=== PATIENT | female | born 1970 | race African-American/Black ===

== ENCOUNTER 2018-08-02 08:51 | Emergency (ER) | payer OTHER ==
--- NOTE | 2018-08-02 09:46 | RAD REPORT ---
EXAM DESCRIPTION: US - Extrem Venous W Compress Stephan - 08/02/2018 9:39 am CLINICAL HISTORY: PAIN Bilateral leg edema and swelling. COMPARISON: No comparisons TECHNIQUE: Real-time sonographic interrogation of the left and right lower extremity deep venous sys tems was performed. FINDINGS: Normal compressibility, flow augmentation, phasic flow and spontaneous flow is identified in both the left and right lower extremity deep venous systems. IMPRESSION: No sonographic evidence of left or right lower extremity deep venous thrombosis.
[2018-08-02 10:46] LABS: Absolute Lymphocytes (CBC) 2.9 K/uL (0.7-4.9); Absolute Monocytes 0.7 K/uL (0.1-1.3); Absolute Neutrophil 7.2 K/uL (1.8-8.0); Basophils % 1.2 % (0-1.3); Hematocrit 42.6 % (36.0-45.0); Lymphocytes % 25.7 % (15.3-44.8); MPV 8.9 fL (7.6-11.3); Monocytes % 6.1 % (3.3-12.3); RBC Red Blood Cell Count 4.88 M/uL (3.86-4.86)
[2018-08-02 10:52] LABS: Protime INR 1.44
[2018-08-02 10:59] LABS: Urine Blood 1+ (NEG); Urine Glucose 2+ (NEG); Urine Protein NEGATIVE (NEG)
[2018-08-02 11:11] LABS: ALT/SGPT 33 U/L (12-78); AST/SGOT 36 U/L (15-37); Albumin 3.2 g/dL (3.4-5.0); Alkaline Phosphatase 91 U/L (45-117); BUN Blood Urea Nitrogen 8 mg/dL (7-18); Bicarbonate 33 mmol/L (21-32); Bilirubin Direct 0.2 mg/dL (0-0.2); Bilirubin Total 0.6 mg/dL (0.2-1.0); Glucose Level 359 mg/dL (74-106); Magnesium 1.8 mg/dL (1.8-2.4); NT PRO-BNP 105 pg/mL (<125); Potassium 4.2 mmol/L (3.5-5.1); Protein, Total 7.4 g/dL (6.4-8.2); Sodium Level 137 mmol/L (136-145); Troponin (Emerg Dept Use Only) < 0.02 ng/mL (0.0-0.045)
--- NOTE | 2018-08-02 11:55 | RAD REPORT ---
EXAM DESCRIPTION: CT - Chest For Pe Angio - 08/02/2018 11:47 am CLINICAL HISTORY: Chest pain. Chest pain;Dyspnea COMPARISON: CTANGIO CHEST FOR PE dated 02/02/2013 TECHNIQUE: CT angiogram of the pulmonary arteries was performed with MIP. All CT scans are performed using dose optimization technique as appropriate and may include automated exposure control or mA/KV adjustment according to patient size. FINDINGS: Distal branches at the segmental and subsegmental emboli levels of the pulmonary arterial tree are suboptimally contrast opacified. These branches cannot be commented upon. Proximal pulmonary arterial tree shows no evidence of thromboembolism. No acute aortic finding demonstrated. The lungs are clear. No significant pericardial or pleural fluid. No concerning bony finding. IMPRESSION: Evaluation for pulmonary thromboembolism is limited to proximal aspects of the pulmonary arterial tree, which show no evidence of thromboembolism. No acute lung findings.
--- NOTE | 2018-08-02 11:57 | RAD REPORT ---
EXAM DESCRIPTION: Radha Single View08/02/2018 9:59 am CLINICAL HISTORY: Shortness of breath COMPARISON: 2012 FINDINGS: The lungs appear clear of acute infiltrate. The heart is mildly enlarged IMPRESSION: No acute abnormalities displayed
[2018-08-02] MEDS ORDERED: INSULIN -REGULAR HUMAN 50 UNIT/0.5 ML ML ONE (12:05)
[2018-08-02] MEDS ORDERED: NA CHLORIDE 0.9% 1,000 ML ONE (12:06)
[2018-08-02] MEDS ORDERED: WARFARIN SODIUM 5 MG TAB ONE (12:06)
--- NOTE | 2018-08-02 12:44 | EDPHYS ---
Physician Documentation [facility] Name: Radha Gregory Age: 48 yrs Sex: Female : 1970 Arrival Date: 08/02/2018 Time: 08:52 Bed 6 Private MD: ED Physician Germain Jensen HPI: 08/02 11:07 This 48 yrs old Black Female presents to ER via EMS with complaints of Shortness Of luzmaria Breath. 11:07 The patient has shortness of breath with light activity. Onset: The symptoms/episode luzmaria began/occurred just prior to arrival. Duration: The symptoms are intermittent. The patient's shortness of breath has no apparent modifying factors. Associated signs and symptoms: The patient has no apparent associated signs or symptoms. Severity of symptoms: At their worst the symptoms were mild in the emergency department the symptoms are unchanged. The patient has not experienced similar symptoms in the past. 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 - Social history:: Smoking status: Patient/guardian denies using tobacco. - Ebola Screening: : Patient negative for fever greater than or equal to 101.5 degrees Fahrenheit, and additional compatible Ebola Virus Disease symptoms Patient denies exposure to infectious person Patient denies travel to an Ebola-affected area in the 21 days before illness onset No symptoms or risks identified at this time. - Family history:: not pertinent. ROS: 11:07 Constitutional: Negative for fever, chills, and weight loss, Eyes: Negative for injury, luzmaria pain, redness, and discharge, ENT: Negative for injury, pain, and discharge, Neck: Negative for injury, pain, and swelling, Cardiovascular: Negative for chest pain, palpitations, and edema, Abdomen/GI: Negative for abdominal pain, nausea, vomiting, diarrhea, and constipation, Back: Negative for injury and pain, : Negative for injury, bleeding, discharge, and swelling, MS/Extremity: Negative for injury and deformity, Skin: Negative for injury, rash, and discoloration, Neuro: Negative for headache, weakness, numbness, tingling, and seizure, Psych: Negative for depression, anxiety, suicide ideation, homicidal ideation, and hallucinations, Allergy/Immunology: Negative for hives, rash, and allergies, Endocrine: Negative for neck swelling, polydipsia, polyuria, polyphagia, and marked weight changes, Hematologic/Lymphatic: Negative for swollen nodes, abnormal bleeding, and unusual bruising. 11:07 Respiratory: Positive for shortness of breath, on exertion. Exam: 11:07 Constitutional: This is a well developed, well nourished patient who is awake, alert, luzmaria and in no acute distress. Head/Face: Normocephalic, atraumatic. Eyes: Pupils equal round and reactive to light, extra-ocular motions intact. Lids and lashes normal. Conjunctiva and sclera are non-icteric and not injected. Cornea within normal limits. Periorbital areas with no swelling, redness, or edema. ENT: Nares patent. No nasal discharge, no septal abnormalities noted. Tympanic membranes are normal and external auditory canals are clear. Oropharynx with no redness, swelling, or masses, exudates, or evidence of obstruction, uvula midline. Mucous membranes moist. Neck: Trachea midline, no thyromegaly or masses palpated, and no cervical lymphadenopathy. Supple, full range of motion without nuchal rigidity, or vertebral point tenderness. No Meningismus. Chest/axilla: Normal chest wall appearance and motion. Nontender with no deformity. No lesions are appreciated. Cardiovascular: Regular rate and rhythm with a normal S1 and S2. No gallops, murmurs, or rubs. Normal PMI, no JVD. No pulse deficits. Respiratory: Lungs have equal breath sounds bilaterally, clear to auscultation and percussion. No rales, rhonchi or wheezes noted. No increased work of breathing, no retractions or nasal flaring. Abdomen/GI: Soft, non-tender, with normal bowel sounds. No distension or tympany. No guarding or rebound. No evidence of tenderness throughout. Back: No spinal tenderness. No costovertebral tenderness. Full range of motion. Skin: Warm, dry with normal turgor. Normal color with no rashes, no lesions, and no evidence of cellulitis. MS/ Extremity: Pulses equal, no cyanosis. Neurovascular intact. Full, normal range of motion. Neuro: Awake and alert, GCS 15, oriented to person, place, time, and situation. Cranial nerves II-XII grossly intact. Motor strength 5/5 in all extremities. Sensory grossly intact. Cerebellar exam normal. Normal gait. Psych: Awake, alert, with orientation to person, place and time. Behavior, mood, and affect are within normal limits. Vital Signs: 08:55 BP 158 / 90; Pulse 79; Resp 16; Temp 98.5; Pulse Ox 97% on R/A; sg MDM: 08:56 Patient medically screened. [facility] 11:07 Data reviewed: vital signs, nurses notes, lab test result(s), EKG, radiologic studies, [facility] CT scan, doppler, plain films. 08/02 08:58 Order name: Basic Metabolic Panel; Complete Time: 11:34 [facility] 08/02 08:58 Order name: CBC with Diff; Complete Time: 10:52 [facility] 08/02 08:58 Order name: LFT's; Complete Time: 11:34 [facility] 08/02 08:58 Order name: Magnesium; Complete Time: 11:34 [facility] 08/02 08:58 Order name: NT PRO-BNP; Complete Time: 11:34 [facility] 08/02 08:58 Order name: PT-INR; Complete Time: 11:34 [facility] 08/02 08:58 Order name: Troponin (emerg Dept Use Only); Complete Time: 11:34 [facility] 08/02 08:58 Order name: XRAY Chest (1 view); Complete Time: 12:43 [facility] 08/02 08:58 Order name: US Extremity Venous W Compression Stephan; Complete Time: 10:32 [facility] 08/02 08:58 Order name: CT Chest For PE Angio; Complete Time: 12:43 [facility] 08/02 10:56 Order name: Urine Dipstick--Ancillary (enter results); Complete Time: 11:34 08/02 08:58 Order name: EKG; Complete Time: 08:59 [facility] 08/02 08:58 Order name: Cardiac monitoring; Complete Time: 09:31 [facility] 08/02 08:58 Order name: EKG - Nurse/Tech; Complete Time: 09:57 [facility] 08/02 08:58 Order name: IV Saline Lock; Complete Time: 10:39 [facility] 08/02 08:58 Order name: Labs collected and sent; Complete Time: 10:39 [facility] 08/02 08:58 Order name: O2 Per Protocol; Complete Time: 09:31 [facility] 08/02 08:58 Order name: O2 Sat Monitoring; Complete Time: 09:31 [facility] 08/02 08:58 Order name: Urine Dipstick-Ancillary (obtain specimen); Complete Time: 10:38 [facility] Administered Medications: 12:00 Drug: NS 0.9% 1000 ml Route: IV; Rate: 125 ml/hr; Site: left antecubital; sg 12:12 Drug: Insulin Regular Human 10 units {Co-Signature: iw (Joann Arriaga RN).} Route: sg IVP; Site: left antecubital; 13:51 Follow up: Response: No adverse reaction sg Disposition: 08/02/18 12:43 Discharged to Home. Impression: Type 1 diabetes mellitus, Dyspnea. - Condition is Stable. - Discharge Instructions: Type 1 Diabetes Mellitus, Diagnosis, Adult, Hypertension, Obesity, Adult, Shortness of Breath, Wata-bu-Uktk, Hypertension, Mvrh-fs-Bavt, Obesity, Adult, Vbnt-bh-Stia, Type 1 Diabetes Mellitus, Self Care, Adult, Type 1 Diabetes Mellitus, Diagnosis, Adult, Vynl-nv-Cxun, Type 1 Diabetes Mellitus, Self Care, Adult, Wusm-rz-Pnaw. - Medication Reconciliation Form, Thank You Letter, Antibiotic Education, Prescription Opioid Use form. - Follow up: Private Physician; When: 2 - 3 days; Reason: Recheck today's complaints, Continuance of care, Re-evaluation by your physician. - Problem is new. - Symptoms have improved. Signatures: Dispatcher [employer] Nick Sotelo RN RN Germain Osorio MD MD cha Irene Williams RN iw Corrections: (The following items were deleted from the chart) 13:52 12:43 08/02/2018 12:43 Discharged to Home. Impression: Type 1 diabetes mellitus; sg Dyspnea. Condition is Stable. Forms are Medication Reconciliation Form, Thank You Letter, Antibiotic Education, Prescription Opioid Use. Follow up: Private Physician; When: 2 - 3 days; Reason: Recheck today's complaints, Continuance of care, Re-evaluation by your physician. Problem is new. Symptoms have improved. [facility]
--- NOTE | 2018-08-02 12:44 | ER ---
Nurse's Notes [facility] Name: Radha Gregory Age: 48 yrs Sex: Female : 1970 Arrival Date: 08/02/2018 Time: 08:52 Bed 6 Private MD: Diagnosis: Type 1 diabetes mellitus;Dyspnea Presentation: 08/02 08:52 Presenting complaint: Patient states: Shortness of breath and pain with respiration sg that began this morning while at the [facility], pt denies N/V/D/Fever, reports has had this pain in the past and it was related to PE, denies any leg or calf pain at this time. Transition of care: patient was not received from another setting of care. Onset of symptoms was August 02, 2018. Risk Assessment: Do you want to hurt yourself or someone else? Patient reports no desire to harm self or others. Initial Sepsis Screen: Does the patient meet any 2 criteria? No. Patient's initial sepsis screen is negative. Does the patient have a suspected source of infection? No. Patient's initial sepsis screen is negative. Care prior to arrival: Glucose check: 358 Oxygen administered. via nasal cannula. 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 - Social history:: Smoking status: Patient/guardian denies using tobacco. - Ebola Screening: : Patient negative for fever greater than or equal to 101.5 degrees Fahrenheit, and additional compatible Ebola Virus Disease symptoms Patient denies exposure to infectious person Patient denies travel to an Ebola-affected area in the 21 days before illness onset No symptoms or risks identified at this time. - Family history:: not pertinent. Assessment: 09:17 Reassessment: pt remains off the unit in radiology at this time. sg Vital Signs: 08:55 BP 158 / 90; Pulse 79; Resp 16; Temp 98.5; Pulse Ox 97% on R/A; sg ED Course: 08:52 Patient arrived in ED. sg 08:55 Triage completed. sg 08:56 Germain Jensen MD is Attending Physician. [facility] 08:59 Arm band placed on. sg 09:02 Nick Mcghee, RN is Primary Nurse. sg 09:27 US Extremity Venous W Compression Stephan In Process Unspecified. EDMS 09:31 EKG done, by fuel cell battery technician. reviewed by Germain Jensen MD. at1 09:49 X-ray completed. Patient tolerated procedure well. Patient moved to radiology via sh7 stretcher. Patient moved back from radiology. 09:51 XRAY Chest (1 view) In Process Unspecified. EDMS 10:02 Radiology exam delayed due to lab results not completed at this time. (BUN/Creatinine). 11:28 CT completed. Patient tolerated procedure well. Patient moved to CT via wheelchair. Patient moved back from CT. 12:08 CT Chest For PE Angio In Process Unspecified. EDMS 13:50 No provider procedures requiring assistance completed. IV discontinued, intact, sg bleeding controlled, No redness/swelling at site. Pressure dressing applied. Administered Medications: 12:00 Drug: NS 0.9% 1000 ml Route: IV; Rate: 125 ml/hr; Site: left antecubital; sg 12:12 Drug: Insulin Regular Human 10 units {Co-Signature: iw (Joann Arriaga RN).} Route: sg IVP; Site: left antecubital; 13:51 Follow up: Response: No adverse reaction sg Outcome: 12:43 Discharge ordered by . [facility] 13:50 Discharged to home via wheelchair, with family. sg 13:50 Discharge instructions given to patient, Instructed on discharge instructions, follow up and referral plans. medication usage, safety practices, Demonstrated understanding of instructions, follow-up care. 13:52 Patient left the ED. sg Signatures: Dispatcher [employer] EDMS Nick Mcghee, RN RN Germain Osorio MD MD cha Jones, Susan sj Gonzales, Amanda, certified pharmacy technician EKG Tat1 Carolyn Cotto 7 Joann agee
--- NOTE | 2018-08-03 11:37 | EKG ---
Test Date: 2018-08-02 Test Time: 08:58:32 Mannequin Wig Maker: IFTIKHAR MEASUREMENT RESULTS: Intervals: Rate: 76 GA: 160 QRSD: 90 QT: 418 QTc: 470 [place]: P: 52 GA: 160 QRS: 1 T: 23 INTERPRETIVE STATEMENTS: Normal sinus rhythm Cannot rule out Anterior infarct, age undetermined Abnormal ECG Compared to ECG 02/02/2013 02:06:24 Myocardial infarct finding now present Sinus tachycardia no longer present ST (T wave) deviation no longer present Electronically Signed On 08-03-18 07:38:40 CDT by Marcelino Cotto
== END 2018-08-02 13:52 | disposition home or self-care (01) ==
LOC: ER 08:51
DX: R06.00 Dyspnea, unspecified (principal); E10.9 Type 1 diabetes mellitus without complications; I10 Essential (primary) hypertension; Z79.4 Long term (current) use of insulin; Z79.01 Long term (current) use of anticoagulants; Z86.718 Personal history of other venous thrombosis and embolism
CPT/HCPCS: 93005; 85025; 80048; 36415; 83735; 85610; 80076; 81003; 84484; 83880; 71275; 71045; 93970; 96374; 99284; Q9967; J7030

== ENCOUNTER 2018-08-24 23:02 | Emergency (ER) | payer OTHER ==
--- OUTSIDE RECORDS SUMMARY | 2018-08-24 23:05 | XMS REPORT | Clinical Summary ---
:1970 Author Organization [facility] Address [address] [place] [address] Care Team Providers Name Role Phone Lilliana Mcconnell MD Primary Care Provider Allergies No Known Allergies Medications Medication Sig Dispensed Refills Start Date End Date Status liraglutide (VICTOZA) 0.6 Inject 1.8 mg 0 Active mg/0.1 mL (18 mg/3 mL) pen under the injector skin every morning. metoprolol succinate XL Take 200 mg 0 Active (TOPROL-XL) 200 mg 24 hr by mouth tablet daily. lisinopril Take 40 mg by 0 Active (PRINIVIL,ZESTRIL) 40 mg mouth daily. tablet dextroamphetamine-amphetami Take 60 mg by 0 Active ne (ADDERALL) 30 mg tablet mouth every morning. dextroamphetamine-amphetami Take 30 mg by 0 Active ne (ADDERALL) 30 mg tablet mouth daily. (noon) oxyCODone-acetaminophen Take 1 tablet 0 Active (PERCOCET) 10-325 mg per by mouth tablet every 6 (six) hours. warfarin (COUMADIN) 5 MG Take 10 mg by 0 Active tablet mouth daily. Take 1 tablet (5mg) by mouth daily for 30 days. atorvastatin (LIPITOR) 40 Take 40 mg by 0 Active MG tablet mouth daily. hydroCHLOROthiazide Take 25 mg by 0 Active (HYDRODIURIL) 25 MG tablet mouth daily. pantoprazole (PROTONIX) 40 Take 40 mg by 0 Active MG EC tablet mouth daily. metFORMIN XR Take 1,000 mg 0 Active (GLUCOPHAGE-XR) 500 mg 24 by mouth 2 hr tablet (two) times a day with meals. Active Problems Problem Noted Date Acute respiratory failure with hypoxia and hypercapnia 04/01/2017 Social History Tobacco Use Types Packs/Day Years Used Date Never Smoker Smokeless Tobacco: Never Used Alcohol Use Drinks/Week oz/Week Comments No Sex Assigned at Date Recorded Not on file Job Start Date Occupation Industry Not on file Not on file Not on file Travel History Travel Start Travel End No recent travel history available. Last Filed Vital Signs Not on file Plan of Treatment Health Maintenance Due Date Last Done Comments BREAST CANCER SCREENING 2018 COLONOSCOPY SCREENING 2018 SHINGLES VACCINES (#1) 2018 INFLUENZA VACCINE 10/05/2018 Implants Implanted Type Area Test Deck Supervisor Device Identifier Shelf Expiration Model / Date Serial / Lot Ivc Filter IVC Filter Ivc Filter IVC Filter Ivc Filter IVC Filter Results Not on fileafter 08/23/2017 Insurance Payer Benefit Plan / Subscriber ID Effective Dates Phone Address Type Group MEDICARE MEDICARE PART A xxxxxxxxxxx 2010-Present [place], [place] Medicare AND B Advance Directives Patient has advance care planning documents on file. For more information, please contact:Enoc Goodrich[address] [place] [address]
--- OUTSIDE RECORDS SUMMARY | 2018-08-24 23:06 | XMS REPORT ---
:1970 [facility] Address [address] [place] [address] Care Team Providers Name Role Phone UNKNOWN, REFFERING Primary Care Provider Unavailable CINDY NEUMANN Unavailable Unavailable Problems This patient has no known problems. Allergies, Adverse Reactions, Alerts This patient has no known allergies or adverse reactions. Medications This patient has no known medications. Encounters Start End Encounter Admission Attending Care Care Encounter Date/Time Date/Time Type Type Clinicians Facility Department ID 2017-01-10 2017-01-10 Emergency E [facility] [id number] 15:23:00 15:23:00 Results Test Description Test Time Test Comments Text Results Atomic Results Result Comments POC Glucose, Blood 2016-11-15 11:32:00 Test Item Value Reference Range Comments POC Glucose (test code=POCGLUC) 138 mg/dL 70-115 If you consider your patient critically ill, the Elvis Accu-Chek InformII metershould not be used for Glucose determinations.Draw a venous Glucose and send to the Main Lab for Analysis.
[2018-08-24] MEDS ORDERED: MORPHINE 4 MG/ML SYR ONE (23:47)
[2018-08-24] MEDS ORDERED: MORPHINE 2 MG/ML SYR ONE (23:47)
--- NOTE | 2018-08-24 23:53 | ER ---
Nurse's Notes [facility] Name: Radha Gregory Age: 48 yrs Sex: Female : 1970 Arrival Date: 08/24/2018 Time: 23:04 Bed 18 Private MD: Diagnosis: Pain in right foot Presentation: 08/24 23:05 Presenting complaint: Patient states: right foot pain at arch of foot X2 days. pt ak1 stated she uses a wheelchair at home. pt denies injury. pt assisted out of car into wheelchair. Transition of care: patient was not received from another setting of care. Onset of symptoms is unknown. Risk Assessment: Do you want to hurt yourself or someone else? Patient reports no desire to harm self or others. Initial Sepsis Screen: Does the patient meet any 2 criteria? No. Patient's initial sepsis screen is negative. Does the patient have a suspected source of infection? No. Patient's initial sepsis screen is negative. Care prior to arrival: None. 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 - Social history:: Smoking status: unknown. - Ebola Screening: : No symptoms or risks identified at this time. Screenin:26 Abuse screen: Denies threats or abuse. Denies injuries from another. Nutritional ak1 screening: No deficits noted. Tuberculosis screening: No symptoms or risk factors identified. Fall Risk Gait- Impaired (20 pts.). Assessment: 23:24 General: Appears in no apparent distress. obese, Behavior is cooperative, agitated. ak1 Pain: Complains of pain in lateral aspect of right foot and dorsum of right foot and lateral side of right heel and lateral side of right foot and right foot. Neuro: No deficits noted. Cardiovascular: No deficits noted. Respiratory: No deficits noted. GI: No signs and/or symptoms were reported involving the gastrointestinal system. : No signs and/or symptoms were reported regarding the genitourinary system. EENT: No signs and/or symptoms were reported regarding the EENT system. Derm: No signs and/or symptoms reported regarding the dermatologic system. Musculoskeletal: Capillary refill is brisk, in right toes. pt c/o swelling and pain to right foot X2 days. pt states she is unable to stand due to pain. pt stated she uses a wheelchair at home. 23:41 Reassessment: Patient appears in no apparent distress at this time. No changes from ak1 previously documented assessment. Patient and/or family updated on plan of care and expected duration. Pain level reassessed. pt informed of need for a ride prior to giving IM morphine. pt stated she had a ride coming. pt c/o wait time for Xrays to be read as well as wait time for medications to take effect. pt informed of wait for medications to absorb as well as Xrays to be uploaded and read. 23:44 Reassessment: verbal order for post op shoe for support. ak1 08/25 00:02 Reassessment: pt waiting on ride to arrive. . ak1 Vital Signs: 08/24 23:17 BP 173 / 106; Pulse 90; Resp 20; Temp 99.3(O); Pulse Ox 100% on R/A; Weight 197.77 kg ak1 (R); Height 5 ft. 4 in. (162.56 cm) (R); Pain 10/10; 08/25 00:01 BP 158 / 96; Pulse 89; Resp 18; Temp 98.9(O); Pulse Ox 99% on R/A; Pain 8/10; ak1 08/24 23:17 Body Mass Index 74.84 (197.77 kg, 162.56 cm) ak1 ED Course: 08/24 23:04 Patient arrived in ED. ak1 23:06 Triage completed. ak1 23:10 Arm band placed on Patient placed in an exam room, in a wheelchair, Patient notified of ak1 wait time. 23:10 Patient has correct armband on for positive identification. Bed in low position. Call ak1 light in reach. Side rails up X 1. Adult w/ patient. pt requested to stay in wheelchair. Pulse ox on. NIBP on. 23:12 Mirlande Phan FNP-C is PHCP. snw 23:12 Germain Jensen MD is Attending Physician. snw 23:27 No provider procedures requiring assistance completed. ak1 23:40 Renee Montemayor, RN is Primary Nurse. ak1 23:43 Patient did not have IV access during this emergency room visit. ak1 23:46 X-ray completed. Portable x-ray completed in exam room. Patient tolerated procedure kw well. 23:47 XRAY Foot RIGHT 3 View In Process Unspecified. EDMS Administered Medications: 23:41 Drug: morphine 5 mg Route: IM; Site: right deltoid; ak1 08/25 00:02 Follow up: Response: No adverse reaction; Pain is decreased ak1 00:34 CANCELLED (Duplicate Order): Phenergan 25 mg PO once snw 00:45 Drug: Phenergan 25 mg Route: PO; ak1 00:45 Follow up: Response: No adverse reaction ak1 Outcome: 08/24 23:41 Condition: stable ak1 23:52 Discharge ordered by . snw 08/25 00:01 Discharge instructions given to patient, Instructed on discharge instructions, follow ak1 up and referral plans. no drinking with medication, no driving heavy equipment, medication usage, post op shoe use and support. Demonstrated understanding of instructions, follow-up care, medications, Prescriptions given X 1. 00:45 Discharged to home via wheelchair, with family, pt assisted to family's car ak1 00:46 Patient left the ED. ak1 Signatures: Dispatcher [employer] EDMS Mirlande Phan FNP-C FNP-Price Sheila Gabriel kw Renee Montemayor, RN RN ak1
--- NOTE | 2018-08-24 23:53 | EDPHYS ---
Physician Documentation [facility] Name: Radha Gregory Age: 48 yrs Sex: Female : 1970 Arrival Date: 08/24/2018 Time: 23:04 Bed 18 Private MD: DARIELA Physician Germain Jensen HPI: 08/24 23:22 This 48 yrs old Black Female presents to ER via Wheelchair with complaints of Foot Pain.snw 23:22 The patient presents with decreased range of motion, pain, that is acute, swelling. The snw complaints affect the lateral aspect of right foot and dorsum of right foot. Context: The problem was sustained at home, resulted from an unknown cause, the patient can fully bear weight, the patient is not able to ambulate. Onset: The symptoms/episode began/occurred suddenly, and became persistent. Associated signs and symptoms: Pertinent positives: swelling. Severity of symptoms: At their worst the symptoms were moderate. It is unknown whether or not the patient has had similar symptoms in the past. SPECIALTY PERSON: 23:17 LMP N/A - Post-menopause ak1 Historical: - Allergies: 08/25 00:32 No Known Allergies; ak1 - Home Meds: 08/24 23:09 Coumadin Oral [Active]; Humira subcutaneous [Active]; Metoprolol Tartrate Oral ak1 [Active]; Vasotec Oral [Active]; Victoza 2-Jose M subcutaneous [Active]; - PMHx: 23:09 Diabetes - IDDM; DVT; Hypertension; PE; ak1 - Immunization history:: Adult Immunizations unknown. - Social history:: Smoking status: unknown. - Ebola Screening: : No symptoms or risks identified at this time. ROS: 23:21 Constitutional: Negative for fever, chills, and weight loss, Eyes: Negative for injury, snw pain, redness, and discharge, ENT: Negative for injury, pain, and discharge, Neck: Negative for injury, pain, and swelling, Cardiovascular: Negative for chest pain, palpitations, and edema, Respiratory: Negative for shortness of breath, cough, wheezing, and pleuritic chest pain, Abdomen/GI: Negative for abdominal pain, nausea, vomiting, diarrhea, and constipation, Back: Negative for injury and pain, : Negative for injury, bleeding, discharge, and swelling, Skin: Negative for injury, rash, and discoloration, Neuro: Negative for headache, weakness, numbness, tingling, and seizure, Psych: Negative for depression, anxiety, suicide ideation, homicidal ideation, and hallucinations. 23:21 MS/extremity: Positive for injury or acute deformity, decreased range of motion, pain, swelling, of the dorsum of right foot and lateral side of right foot. Exam: 23:20 Constitutional: This is a well developed, well nourished patient who is awake, alert, snw and in no acute distress. Head/Face: Normocephalic, atraumatic. Eyes: Pupils equal round and reactive to light, extra-ocular motions intact. Lids and lashes normal. Conjunctiva and sclera are non-icteric and not injected. Cornea within normal limits. Periorbital areas with no swelling, redness, or edema. ENT: Nares patent. No nasal discharge, no septal abnormalities noted. Tympanic membranes are normal and external auditory canals are clear. Oropharynx with no redness, swelling, or masses, exudates, or evidence of obstruction, uvula midline. Mucous membranes moist. Neck: Trachea midline, no thyromegaly or masses palpated, and no cervical lymphadenopathy. Supple, full range of motion without nuchal rigidity, or vertebral point tenderness. No Meningismus. Chest/axilla: Normal chest wall appearance and motion. Nontender with no deformity. No lesions are appreciated. Cardiovascular: Regular rate and rhythm with a normal S1 and S2. No gallops, murmurs, or rubs. Normal PMI, no JVD. No pulse deficits. Respiratory: Lungs have equal breath sounds bilaterally, clear to auscultation and percussion. No rales, rhonchi or wheezes noted. No increased work of breathing, no retractions or nasal flaring. Abdomen/GI: Soft, non-tender, with normal bowel sounds. No distension or tympany. No guarding or rebound. No evidence of tenderness throughout. Back: No spinal tenderness. No costovertebral tenderness. Full range of motion. Skin: Warm, dry with normal turgor. Normal color with no rashes, no lesions, and no evidence of cellulitis. Neuro: Awake and alert, GCS 15, oriented to person, place, time, and situation. Cranial nerves II-XII grossly intact. Motor strength 5/5 in all extremities. Sensory grossly intact. Cerebellar exam normal. Normal gait. Psych: Awake, alert, with orientation to person, place and time. Behavior, mood, and affect are within normal limits. 23:20 Musculoskeletal/extremity: Extremities: grossly normal except: noted in the lateral side of right foot, lateral side of right heel and dorsum of right foot: decreased ROM, ROM: limited passive range of motion due to pain, in the right foot, Pulses: are normal with no appreciated deficits, Sensation intact. Compartment Syndrome exam of affected extremity: is normal. Vital Signs: 23:17 BP 173 / 106; Pulse 90; Resp 20; Temp 99.3(O); Pulse Ox 100% on R/A; Weight 197.77 kg ak1 (R); Height 5 ft. 4 in. (162.56 cm) (R); Pain 10/10; 08/25 00:01 BP 158 / 96; Pulse 89; Resp 18; Temp 98.9(O); Pulse Ox 99% on R/A; Pain 8/10; ak1 08/24 23:17 Body Mass Index 74.84 (197.77 kg, 162.56 cm) ak1 MDM: 08/24 23:13 Patient medically screened. snw 23:53 Data reviewed: vital signs, nurses notes. Data interpreted: Pulse oximetry: on room air snw is 100 %. Interpretation: normal. Counseling: I had a detailed discussion with the patient and/or guardian regarding: the historical points, exam findings, and any diagnostic results supporting the discharge/admit diagnosis, radiology results, to return to the emergency department if symptoms worsen or persist or if there are any questions or concerns that arise at home. Special discussion: Based on the history and exam findings, there is no indication for further emergent testing or inpatient evaluation. I discussed with the patient/guardian the need to see the motor tune up specialist for further evaluation of the symptoms. I discussed with the patient/guardian the need to see the primary care provider for further evaluation of the symptoms. 23:54 Special discussion: I have referred the patient to see his PCP for further evaluation snw of high blood pressure. 08/24 23:10 Order name: XRAY Foot RIGHT 3 View ak1 Administered Medications: 23:41 Drug: morphine 5 mg Route: IM; Site: right deltoid; ak1 08/25 00:02 Follow up: Response: No adverse reaction; Pain is decreased ak1 00:34 CANCELLED (Duplicate Order): Phenergan 25 mg PO once snw 00:45 Drug: Phenergan 25 mg Route: PO; ak1 00:45 Follow up: Response: No adverse reaction ak1 Disposition: 14:01 Co-signature as Attending Physician, Germain Jensen MD I agree with the assessment and luzmaria plan of care. Disposition: 08/24/18 23:52 Discharged to Home. Impression: Pain in right foot. - Condition is Stable. - Discharge Instructions: Foot Contusion, Heel Spur, Musculoskeletal Pain, Cryotherapy, Heat Therapy, How to Use a Cast Shoe, Foot Pain. - Prescriptions for Ultram 50 mg Oral Tablet - take 1 tablet by ORAL route every 6 hours As needed; 15 tablet. - Medication Reconciliation Form, Thank You Letter, Antibiotic Education, Prescription Opioid Use form. - Follow up: Private Physician; When: 2 - 3 days; Reason: Recheck today's complaints, Continuance of care, Re-evaluation by your physician. Follow up: Emergency Department; When: As needed; Reason: Worsening of condition. Signatures: Dispatcher [employer] [facility] Germain Jensen MD MD cha Therrien, Shelly, SUPERVISOR CARDING-C SUPERVISOR CARDING-Csnw Renee Montemayor, RN RN ak1 Corrections: (The following items were deleted from the chart) 00:34 00:33 Phenergan 25 mg PO once ordered. snw snw 00:46 08/24 23:52 08/24/2018 23:52 Discharged to Home. Impression: Pain in right foot. ak1 Condition is Stable. Forms are Medication Reconciliation Form, Thank You Letter, Antibiotic Education, Prescription Opioid Use. Follow up: Private Physician; When: 2 - 3 days; Reason: Recheck today's complaints, Continuance of care, Re-evaluation by your physician. Follow up: Emergency Department; When: As needed; Reason: Worsening of condition. snw
[2018-08-25] MEDS ORDERED: PROMETHAZINE 25 MG TABLET ONE (00:51)
--- NOTE | 2018-08-25 07:55 | RAD REPORT ---
EXAM DESCRIPTION: RAD - Foot Right 3 View - 08/24/2018 11:47 pm CLINICAL HISTORY: PAIN COMPARISON: <Comparisons> FINDINGS: Prominent soft tissue swelling is seen about the foot. Moderate degenerative changes invol ve the first MTP joint. Calcaneal spurs are seen, large, along the plantar aspect. No acute fracture or dislocation evident.
== END 2018-08-25 00:46 | disposition home or self-care (01) ==
LOC: ER 23:02
DX: M79.671 Pain in right foot (principal); E11.9 Type 2 diabetes mellitus without complications; I10 Essential (primary) hypertension; Z79.01 Long term (current) use of anticoagulants; Z79.84 Long term (current) use of oral hypoglycemic drugs; Z79.899 Other long term (current) drug therapy; Z86.718 Personal history of other venous thrombosis and embolism; Z86.711 Personal history of pulmonary embolism
CPT/HCPCS: 73630; 96372; 99284; J2270

== ENCOUNTER 2020-03-09 17:36 | Inpatient (IN) | payer OTHER ==
--- OUTSIDE RECORDS SUMMARY | 2020-03-09 17:38 | XMS REPORT | Clinical Summary ---
:1970 Author Organization [facility] Address [address] [place] [address] Care Team Providers Name Role Phone Rl Mcconnell MD Primary Care Provider Allergies No Known Active Allergies Medications Medication Sig Dispensed Refills Start Date End Date Status liraglutide Inject 1.8 mg under 0 Active (VICTOZA) 0.6 mg/0.1 the skin every mL (18 mg/3 mL) pen morning. injector metoprolol succinate Take 200 mg by mouth 0 Active XL (TOPROL-XL) 200 daily. mg 24 hr tablet lisinopril Take 40 mg by mouth 0 Active (PRINIVIL,ZESTRIL) daily. 40 mg tablet atorvastatin Take 40 mg by mouth 0 Active (LIPITOR) 40 MG daily. tablet pantoprazole Take 40 mg by mouth 0 Active (PROTONIX) 40 MG EC daily. tablet allopurinol Take 300 mg by mouth 0 Active (ZYLOPRIM) 300 MG daily. tablet furosemide (LASIX) Take 40 mg by mouth 0 Active 40 mg tablet 2 (two) times a day. ipratropium Take 500 mcg by 0 Ac tive (ATROVENT) 0.02 % nebulization 4 nebulizer solution (four) times a day as needed for wheezing or shortness of breath. insulin lispro Inject 40 Units 0 Active protamin-lispro under the skin 2 (HumaLOG 75-25) 100 (two) times a day unit/mL (75-25) before meals. suspension Active Problems Problem Noted Date Prothrombin gene mutation 10/25/2018 Other pulmonary embolism without acute cor pulmonale 0 10/24/2018 Acute respiratory failure with hypoxia and hypercapnia 04/01/2017 Encounters Date Type Specialty Care Team Description 08/17/2019 Travel 08/16/2019 Hospital Encounter Sleep Medicine Stacy Benedict sleep Jamar Arguello MD apnea (adult) (pediatric) 08/06/2019 Travel 06/13/2019 Transcribe Orders Sleep Medicine Jak, Obstruct marcella sleep Jamar Arguello MD apnea (adult) (pediatric) (Pr imary Dx) 06/13/2019 Travel 06/12/2019 Transcribe Orders Access Jak, Obstructiv e sleep Jamar Arguello MD apnea (adult) (pediatric) (Pr imary Dx) after 03/09/2019 Surgical History Surgery Date Site/Laterality Comments IVC FILTER PLACEMENT Medical History Medical History Date Comments Asthma Hypertension Diabetes mellitus (HCC) High cholesterol Deep vein thrombosis (HCC) Pulmonary embolism (HCC) Family History Medical History Relation Name Comments Clotting disorder Father Relation Name Status Comments Father Social History Tobacco Use Types Packs/Day Years Used Date Never Smoker Smokeless Tobacco: Never Used Alcohol Use Drinks/Week oz/Week Comments No Sex Assigned at Date Recorded Not on file Last Filed Vital Signs Not on file Plan of Treatment Health Maintenance Due Date Last Done Comments DIABETES: RETINAL EYE EXAM 1978 DIABETIC FOOT EXAM 1978 URINE MICROALBUMIN 1978 COVID-19 VACCINE (#1) 1984 CERVICAL CANCER SCREENING 1989 BREAST CANCER SCREENING 2018 COLONOSCOPY SCREENING 2018 SHINGLES VACCINES (#1) 2018 INFLUENZA VACCINE 10/06/2019 02/20/2013, 04/15/2011 Implants Implanted Type Area Vacuum Conditioner Operator Device Identifier Shelf Exp iration Model / Date Serial / L ot Ivc Filter IVC Filter Ivc Filter IVC Filter Ivc Filter IVC Filter Results Not on fileafter 03/09/2019 Insurance Payer Benefit Plan / Subscriber ID Effective Dates Phone Addre ss Type Group HUMANA MEDICARE HUMANA HMO GOLD [id number] 2019-Present HMO PLUS MEDICARE Loan (Home) [place] [address] Advance Directives For more information, please contact: [phone] Type Date Recorded 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
--- OUTSIDE RECORDS SUMMARY | 2020-03-09 17:39 | XMS REPORT | Continuity of Care Document ---
:1970 Author Organization [facility] t Address [address] [place] [address] Care Team Providers Name Role Phone UNKNOWN Primary Care Physician Unavailable Jos Benedict MD Attending Clinician NEL Attending Clinician Unavailable NEL Admitting Clinician Unavailable Payers Payer Name Policy Type Policy Effective Date Expiration Date Sour ce Number HUMANA [id number] 2019 [place] MEDICAREHUMANA HMO 00:00:00 Method ist GOLD PLUS [id number] Problems Condition Condition Condition Status Onset Resolution Last Treating Co mments Source Name Details Category Date Date Treatment Clinician Date Prothrombi Prothrombi Disease Active H juan n gene n gene 8-21 Methodi mutation mutation 00:00: st 00 Other Other Disease Active [place] pulmonary pulmonary 8-20 Meth oneyda embolism embolism 00:00: st without without 00 acute cor acute cor pulmonale pulmonale Obstructiv Obstructiv Disease Active Overview : MD ray sleep e sleep 2-16 Overview: Raymond suarez apnea apnea 00:00: on BIPAP n syndrome syndrome 00 Prothrombi Prothrombi Disease Active M D n gene n gene 2-16 Anderso mutation mutation 00:00: n 00 Morbid Morbid Disease Active obesity obesity 2-16 Anderso 00:00: n 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 current 2-16 Anderso use of use of 00:00: n anticoagul anticoagul 00 ant ant Acute Acute Disease Active [place] respirator respirator -26 Me thodi y failure y failure 00:00: st with with 00 hypoxia hypoxia and and hypercapni hypercapni a a Personal Personal Disease Active 2015-03 history of history of 2-13 An derso pulmonary pulmonary 00:00: n embolism embolism 00 Hyperlipid Hyperlipid Disease Active M D emia emia 09-25 Anderso 00:00: n 00 Esophageal Esophageal Disease Active M D reflux reflux 4- Anderso 00:00: n 00 Type 2 Type 2 Disease Active diabetes diabetes 09-01 Christopher o mellitus mellitus 00:00: n 00 History of History of Disease Active M D recurrent recurrent 07-01 Tao rso deep vein deep vein 00:00: n thrombosis thrombosis 00 Benign Benign Disease Active essential essential 07-01 Tao rso hypertensi hypertensi 00:00: n on on 00 Polycystic Polycystic Disease Active M D ovarian ovarian 03-07 Anderso syndrome syndrome 00:00: n 00 Gout Gout Disease Active 03-07 Anderso 00:00: n 00 Allergies, Adverse Reactions, Alerts This patient has no known allergies or adverse reactions. Family History Family Member Diagnosis Comments Start Date Stop Date Source Natural father Clotting disorder [facility] Social History Social Habit Start Date Stop Date Quantity Comments Source Sex Assigned At MD White on Tobacco use and 2018-04-22 2018-04-22 Never used MD White on exposure 00:00:00 00:00:00 Alcohol intake 2018-04-22 2018-04-22 Current MD Keyana maier 00:00:00 00:00:00 non-drinker of alcohol (finding) Smoking Status Start Date Stop Date Source Never smoker MD Jensen Medications Ordered Filled Start Stop Current Ordering Indication Dosage Frequency Signature Comments Components Source Medication Medication Date Date Medication? Clinician (SIG) Name Name liraglutide Yes 1.8mg QD Inject 1.8 [facility] (VICTOZA) 8-24 mg under Method i 0.6 mg/0.1 15:14: the skin st mL (18 mg/3 11 every mL) pen morning. injector metoprolol 2019-0 Yes 200mg QD Take 200 [place] succinate 8-24 mg by Methodi XL 15:14: mouth st (TOPROL-XL) 11 daily. 200 mg 24 hr tablet lisinopril 2019-0 Yes 40mg QD Take 40 mg [place] (PRINIVIL,Z 8-24 by mouth Meth oneyda ESTRIL) 40 15:14: daily. st mg tablet 11 atorvastati 2019-0 Yes 40mg QD Take 40 mg [facility] n (LIPITOR) 8-24 by mouth Meth oneyda 40 MG 15:14: daily. st tablet 11 pantoprazol 2019-0 Yes 40mg QD Take 40 mg [facility] e 8-24 by mouth Methodi (PROTONIX) 15:14: daily. st 40 MG EC 11 tablet allopurinol 2019-0 Yes 300mg QD Take 300 [place] (ZYLOPRIM) 8-24 mg by Methodi 300 MG 15:14: mouth st tablet 11 daily. furosemide 2019-0 Yes 40mg Q.5D Take 40 mg [place] (LASIX) 40 8-24 by mouth 2 Met hodi mg tablet 15:14: (two) st 11 times a day. ipratropium 2018-0 Yes 500ug Q.25D Take 500 [facility] (ATROVENT) 8-24 mcg by Methodi 0.02 % 15:14: nebulizati st nebulizer 11 on 4 solution (four) times a day as needed for wheezing or shortness of breath. insulin 2018-0 Yes 40U Q.5D Inject 40 [place] lispro 8-24 Units Methodi protamin-li 15:14: under the s t spro 11 skin 2 (HumaLOG (two) 75-25) 100 times a unit/mL day before (75-25) meals. suspension dextroamphe 2019-0 Yes 30mg Take 30 mg MD tamine-amph 2-14 by mouth Tao rso etamine 30 17:37: daily. n mg tab 53 glycopyrrol 2019-0 Yes daily. ate-formote 2-14 Anderso rol 9-4.8 17:37: n mcg HFAA 53 clotrimazol 2019-0 Yes twice MD e 2-12 daily. Anderso (LOTRIMIN-A 00:00: n F) 1% cream 00 insulin 2019-0 Yes 24U Inject 24 MD glargine 1-17 Units Anderso U-300 conc 00:00: under the n 300 unit/mL 00 skin (1.5 mL) daily. insulin pen warfarin Yes 15mg Take 15 mg MD (COUMADIN) 1-16 by mouth Raymond so 5 mg tablet 00:00: daily. n 00 atorvastati Yes 40mg Take 40 mg MD n (LIPITOR) 1-08 by mouth Tao rso 40 mg 00:00: daily. n tablet 00 hydroCHLORO Yes 25mg 25 mg MD thiazide -08 daily. Anderso (HYDRODIURI 00:00: n L) 25 mg 00 tablet lisinopril Yes 40mg Take 40 mg M D (PRINIVIL,Z -08 by mouth Tao rso ESTRIL) 40 00:00: daily. n mg tablet 00 metFORMIN Yes 1000mg 1,000 mg MD (GLUCOPHAGE -08 twice Anderso -XR) 500 mg 00:00: daily. n 24 hr 00 tablet metoprolol 2017-03 Yes daily. MD succinate 0-30 Anderso (TOPROL XL) 00:00: n 200 mg 24 00 hr tablet liraglutide Yes daily. MD (VICTOZA) 8-21 Anderso 0.6 mg/0.1 00:00: n mL pnij 00 injection modafinil 2017- Yes daily. MD (PROVIGIL) 6-20 Anderso 200 mg 00:00: n tablet 00 furosemide Yes 40mg 40 mg MD (LASIX) 40 5-23 twice Anderso mg tablet 00:00: daily. n 00 pantoprazol Yes twice MD e 1-10 daily. Anderso (PROTONIX) 00:00: n 40 mg EC 00 tablet clotrimazol 2015-03 Yes twice MD e-betametha 2-14 daily. Christopher o sone 00:00: n (LOTRISONE) 00 1%-0.05% cream azelastine Yes 137{spr 137 sprays MD (ASTELIN) 7-30 ay} daily. Anderso 137 00:00: n mcg/spray 00 nasal spray ciclopirox 2015-1 Yes Apply MD (PENLAC) 8% 2-02 topically And erso solution 00:00: to n 00 affected area(s) at bedtime. Metoprolol Metoprolol Yes Prasad [address] [facility] Succinate Succinate [facility] Lisinopril Lisinopril Yes Prasad [address] [facility] Amphetamine Amphetamine Yes Prasad (Schedule [facility] -Dextroamph -Dextroamph Marie II Drug) [facility] - etamine etamine TAKE HALF Danny lisa OF A l TABLET (15 Outpati MG) BY ent MOUTH ONE Clinics TIME NovoLog NovoLog Yes Prasad [address] [facility] Azelastine Azelastine Yes Prasad [address] [facility] HCl HCl Marie each [facility] nostril [facility] Golytely Golytely Yes Prasad as [facility] directed [facility] Nystatin Nystatin Yes Prasad [address] [facility] Marie applicatio [facility] Triamcinolo Triamcinolo Yes Prasad [address] [facility] ne ne Mraie applicatio [facility] - Acetonide Acetonide n [facility] Tramadol Tramadol Yes Prasad (Schedule [facility] HCl HCl Marie IV Drug) [facility] - TAKE 1 Memoria TABLET BY l MOUTH Outpati EVERY 6 ent HOURS Clinics NEEDED FOR PAIN Montelukast Montelukast Yes Prasad [address] [facility] Sodium Sodium Marie [facility] Indomethaci Indomethaci Yes Prasad [address] [facility] n n Marie with food [facility] - or milk [facility] Clotrimazol Clotrimazol Yes Prasad [address] [facility] e-Betametha e-Betametha Marie applicatio [facility] - sone sone n [facility] Contour Contour Yes Prasad not [facility] Meter Meter Marie defined [facility] Contour Contour Yes Prasad as [facility] Next Test Next Test Marie directed L [facility] MetFORMIN MetFORMIN Yes Prasad [address] [facility] [address] HCl ER HCl ER Marie with [facility] - evening [facility] meal [facility] Furosemide Furosemide Yes Prasad [address] [facility] Ciclopirox Ciclopirox Yes Prasad [address] [facility] Marie applicatio [facility] Clotrimazol Clotrimazol Yes Prasad [address] [facility] e e Marie applicatio [facility] Victoza Victoza Yes Prasad 1.[address] [facility] Mupirocin Mupirocin Yes Prasad [address] Marie applicatio [facility] Glycopyrrol Glycopyrrol Yes Prasad [address] ate-Formote ate-Formote Marie L ukes - rol rol [facility]pat[facility] ent Clin[facility] Allopurinol Allopurinol Yes Prasad [address] [facility] Nifedipine Nifedipine Yes Prasad [address] [facility] ER ER Marie [facility] Levocetiriz Levocetiriz Yes Prasad [address] [facility] ine ine Marie in the [facility] - Dihydrochlo Dihydrochlo evening Memoria ride ride l Outpati ent Clinics Pen [place] Pen [place] Yes Prasad as [facility] 5/16" 5/16" Marie directed [facility] Fluticasone Fluticasone Yes Prasad [address] [facility] Propionate Propionate Marie each Kacy es - nostril [facility] l Outpati ent Clinics Atorvastati Atorvastati Yes Prasad [address] [facility] n Calcium n Calcium Marie kes - [facility] Coumadin Coumadin Yes Prasad [address] [facility] Pantoprazol Pantoprazol Yes Prasad [address] e Sodium e Sodium Marie kes [facility] Procedures This patient has no known procedures. Plan of Care Planned Activity Planned Date Details Comments Source Future Scheduled 2019-10-06 INFLUENZA VACCINE [place] [facility] 00:00:00 [code = INFLUENZA VACCINE] Future Scheduled 2018 BREAST CANCER [facility] Test 00:00:00 SCREENING [code = BREAST CANCER SCREENING] Future Scheduled 2018 COLONOSCOPY SCREENING [facility] sal[facility] Test 00:00:00 [code = COLONOSCOPY SCREENING] Future Scheduled 2018 SHINGLES VACCINES (#1) [place] [facility] 00:00:00 [code = SHINGLES VACCINES (#1)] Future Scheduled 1989 Screening for [facility] Test 00:00:00 malignant neoplasm of cervix (procedure) [code = 616025122] Future Scheduled 1984 COVID-19 VACCINE (#1) [place] [facility] 00:00:00 [code = COVID-19 VACCINE (#1)] Future Scheduled 1978 DIABETES: RETINAL EYE [place] [facility] 00:00:00 EXAM [code = DIABETES: RETINAL EYE EXAM] Future Scheduled 1978 DIABETIC FOOT EXAM [place] [facility] 00:00:00 [code = DIABETIC FOOT EXAM] Future Scheduled 1978 URINE MICROALBUMIN [place] [facility] 00:00:00 [code = URINE MICROALBUMIN] Encounters Start End Encounter Admission Attending Care Care Encounter Source Date/Time Date/Time Type Type Clinicians Facility Department ID 2020-03-06 2020-03-06 Out[facility] [id number] 2020-02-26 2020-02-26 [facility] [id number] [facility] 2020-02-19 2020-02-19 Outpatient [facility] [id number] [facility] 2019-12-24 2019-12-24 Out[facility] [id number] [facility] 2019-10-17 2019-10-17 [facility] [id number] [address] 16:47:00 16:47:00 t [employer] [facility] Medicine Outpati ent Clinics 2019-10-08 2019-10-08 [facility] [id number] 14:30:00 14:30:00 t [facility] Clin[facility] 2019-09-19 2019-09-19 Outpatient Payton Monge [id number] 16:05:00 16:05:00 [employer] [place] [facility] 2019-09-19 2019-09-19 Outpatient Payton Monge [id number] [facility] 15:15[facility] 15:15:00 [facility] 2019-08-16 2019-08-16 Outpatient MELISSA, [facility] [id number] [place] 00:00:00 00:00:00 DE[place] [address] 2017-01-10 2017-01-10 Emergency E [facility] [id number] [facility] 15:23:00 15:23:00 Results Test Description Test Time Test Comments Results Result Comments Source POC Glucose, Blood 2016-11-15 11:32:00 Test Item Value Reference Range Interpretation Comme nts POC Glucose (test code = 138 mg/dL 70-115 H If you consider your patient POCGLUC) critically ill, the Elvis Accu-Chek InformII meters hould not be used for Glucose determi nations.Draw a venous Glucose and sen d to the Main Lab for Analysis.
--- OUTSIDE RECORDS SUMMARY | 2020-03-09 17:39 | XMS REPORT | Summary of Care ---
:1970 Author Organization [facility] [employer] [facility] Address [address] [place] [id number] Care Team Providers Name Role Phone Visit, Nurse Unavailable Unavailable Destiny Soria Primary Care Provider Reason for Visit Reason Comments Results Encounter Details Date Type Department Care Team Description 12/11/2019 Telephone [facility] Cardiology- Catie Vargas MD Results [place] [address] [facility] [address] [facility], [address] [address] [place] [address] [phone] Allergies No Known Allergiesdocumented as of this encounter (statuses as of 12/11/2019) Medications Medication Sig Dispensed Refills Start Date End Date Status ciclopirox (PENLAC) 8 Apply to area(s) 6.6 mL 11 02/05/2015 Active % solution at bedtime. Apply to Nails. clotrimazole-betametha Apply to area(s) 45 g 2 6 Active sone (LOTRISONE) cream 2 (two) times daily. PANTOPRAZOLE 40 mg EC TAKE 1 TABLET BY 60 tablet 0 03/16/2017 Active tablet MOUTH TWICE DAILY 30 MINUTES BEFORE BREAKFAST AND DINNER glycopyrrolate-formote Inhale. 0 Active rol (BEVESPI AEROSPHERE) 9-4.8 mcg HFAA clotrimazole 1 % Apply to area(s) 1 Tube 0 06/22/2018 Active topical 2 (two) times creamIndications: daily. Cutaneous candidiasis nystatin 100,000 Apply to area(s) 90 g 11 07/04/2018 Active unit/gram daily. powderIndications: Intertrigo peg-electrolyte soln Take as directed 4000 mL 0 07/17/2018 Active [id number] -5.86 before gram colonoscopy solutionIndications: Special screening for malignant neoplasms, colon indomethacin 50 mg Take 50 mg by 0 Active capsule mouth 2 (two) times daily with meals. clotrimazole-betametha Apply to area(s) 45 g 2 9 Active sone creamIndications: 2 (two) times Chronic gout due to daily. 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 Use in to pollen, unspecified each nostril as seasonality directed ipratropium 0.02 % Inhale 500 mcg. 0 Active nebulizer solution fluticasone propionate Use 1 [place] in 1 Bottle 5 05/01/2019 Active 50 mcg/actuation nasal each nostril sprayIndications: daily. Allergic rhinitis due to pollen, unspecified seasonality levocetirizine 5 mg Take 1 tablet by 90 tablet 1 05/16/2019 Active tabletIndications: mouth every Environmental evening. allergies metformin ER 500 mg 24 Take 2 tablets by 360 tablet 1 05/25/19 20 Active hr tabletIndications: mouth 2 (two) Uncontrolled type 2 times daily with diabetes mellitus with meals. complication, with long-term current use of insulin furosemide (LASIX) 40 Take 1 tablet by 180 tablet 1 05/25/2019 Active mg tabletIndications: mouth every Deep vein thrombosis morning and (DVT) of proximal vein evening. of right lower extremity, unspecified chronicity, Chronic anticoagulation, NYE (dyspnea on exertion), Thrombotic disorder, Essential hypertension, benign, Uncontrolled hypertension metoprolol succinate Take 1 tablet by 90 tablet 1 05/25/2019 Active XL 200 mg 24 hr mouth daily. tabletIndications: Essential hypertension, benign allopurinoL 300 mg Take 1 tablet by 90 tablet 3 05/23/2019 Active tabletIndications: mouth daily. Chronic gout due to other secondary cause involving toe of right foot without tophus, Tendonitis of ankle or foot, Pitting edema, Comprehensive diabetic foot examination, type 2 DM, encounter for, Diabetes mellitus type 2, insulin dependent atorvastatin 40 mg TAKE 1 TABLET BY 90 tablet 3 05/23/2019 Active tabletIndications: MOUTH EVERY NIGHT Dyslipidemia AT BEDTIME. montelukast 10 mg Take 1 tablet by 90 tablet 3 05/23/2019 Active tabletIndications: mouth daily. Allergic rhinitis due to pollen, unspecified seasonality triamcinolone Apply BID to red 454 g 1 06/05/2019 Active acetonide 0.1 % rash on both ointmentIndications: lower Venous insufficiency extremities; do of both lower not apply to extremities normal, smooth skin mupirocin 2 % Apply to area(s) 22 g 5 06/06/2019 Active ointmentIndications: 3 (three) times Furuncle daily. Insulin Wallace, Use as directed 300 Each 0 07/05/2019 Active Disposable, (BD to administer INSULIN PEN NEEDLE UF) insulin under 31 gauge x 5/16" Ndle skin TID DX: E11.65 blood sugar diagnostic Use as directed 200 Strip 0 10/04/2019 Active (ACCU-CHEK GUIDE) to check blood strip sugars BID DX: E11.8 Blood-Glucose Meter Use as directed 1 Each 0 10/04/2019 Active (ACCU-CHEK GUIDE to check blood GLUCOSE METER) Misc sugars BID DX: E11.8 Lancets (ACCU-CHEK Use as directed 200 Each 0 10/04/2019 Active FASTCLIX LANCET DRUM) to check blood Misc sugars BID DX: E11.8 LISINOPRIL 40 mg TAKE 1 TABLET 90 tablet 1 11/02/2019 Active tabletIndications: EVERY MORNING Essential hypertension, benign warfarin (COUMADIN) 5 Take 3 tablets by 90 tablet 1 11/09/2019 Active mg tabletIndications: mouth every Chronic evening. Patient anticoagulation takes Coumadin 10 and 15 mg at alternate days. semaglutide (OZEMPIC) inject 0.5 mg 4 Syringe 3 11/16/2019 Active 0.25 mg or 0.5 mg(2 under the skin mg/1.5 mL) weekly. PnIjIndications: Uncontrolled type 2 diabetes mellitus with complication, with long-term current use of insulin Insulin Asp inject 60 Units 120 mL 3 11/16/2019 A ctive Prt-Insulin Aspart under the skin 2 (NOVOLOG MIX 70-30) (two) times daily 100 unit/mL (70-30) before breakfast injectionIndications: and dinner. Dx: Uncontrolled type 2 E11.8 diabetes mellitus with complication, with long-term current use of insulin escitalopram oxalate Take 10 mg by 0 11/15/2019 Active 10 mg tablet mouth daily. NIFEdipine XL Take 60 mg by 0 Ac tive (PROCARDIA XL) 60 mg mouth daily. 24 hr tablet documented as of this encounter (statuses as of 12/11/2019) Active Problems Problem Noted Date Unable to walk 06/11/2019 Bilateral hip pain 06/11/2019 Primary osteoarthritis of both knees 06/11/2019 Declining functional status 06/11/2019 Impaired mobility and ADLs 06/11/2019 Pulmonary embolism 11/22/2018 Supratherapeutic INR 09/01/2018 long-term current use of anticoagulant 04/22/2018 Acute respiratory failure with hypoxia and hypercapnia 04/01/2017 Hypoxia 01/05/2017 Hypercarbia 09/28/2016 Abnormal uterine bleeding 09/17/2016 Overview: Added automatically from request for nirali ced [id number] Dermoid cyst of ovary 05/17/2016 Abnormal uterine bleeding (AUB) 05/14/2016 Pulmonary embolus [I26.99] 02/17/2016 Personal history of pulmonary embolism 02/17/2016 Abdominal pain in female 02/06/2016 Depression 09/11/2015 HLD (hyperlipidemia) 09/25/2014 Metabolic syndrome X 03/19/2014 BMI 70 and over, adult 06/14/2012 Esophageal reflux 06/14/2012 Vitamin D deficiency 09/29/2011 Diabetes type 2, uncontrolled 09/02/2011 Hirsutism 09/02/2011 Essential hypertension, benign 2011 DVT (deep venous thrombosis) 2011 ADHD (attention deficit hyperactivity disorder) 2011 History of recurrent deep vein thrombosis 2011 Anticoagulation monitoring, INR range 2.5-3.5 10/02/19 11 Osteoarthrosis, hip 10/01/2010 Gout 03/07/1999 Polycystic ovarian syndrome 03/07/1999 Severe obesity VANCE (obstructive sleep apnea) Overview: on BIPAP Prothrombin gene mutation documented as of this encounter (statuses as of 12/11/2019) Resolved Problems Problem Noted Date Resolved Date Deep vein thrombosis [I82.409] 02/17/2016 7 Well woman exam with routine gynecological exam 09/11/2015 05/11/2016 Encounter for screening mammogram for breast cancer 09/11/19 16 05/11/2016 Essential hypertension 09/11/2015 05/14/2016 Dyslipidemia 01/01/2015 05/14/2016 Uncontrolled diabetes mellitus type 2 without complications 12/31/2014 05/11/2016 Albuminuria 06/26/2014 05/14/2016 H/O blood clots 03/19/2014 05/14/2016 Hypoxia 03/08/2014 05/11/2016 Leucocytosis 02/19/2013 05/11/2016 Diarrhea 06/14/2012 05/14/2016 Dyspepsia 06/14/2012 05/14/2016 Hypertensive urgency 11/05/2011 05/11/2016 HLD (hyperlipidemia) 09/02/2011 05/11/2016 Overview: ICD10 Diagnosis Term Net Mvc Developer Utility Morbid obesity 2011 05/11/2016 Pulmonary embolism 2011 05/11/2016 Diabetes mellitus type 2, uncontrolled, without complication s 2011 12/31/2014 Overview: ICD10 Diagnosis Term Net Mvc Developer Utility HTN (hypertension) 05/14/2016 ADH disorder 05/11/2016 DM (diabetes mellitus) 05/11/2016 documented as of this encounter (statuses as of 12/11/2019) Immunizations Name Administration Dates Next Due Influenza Virus Vaccine 04/15/2011 Influenza Virus Vaccine (3+ yrs) 02/20/2013 Influenza Virus Vaccine Quad .5 mL IM 6+ MO 01/02/2019 Influenza Virus Vaccine Quad IM 3+ YRS 01/08/2017, 6 Pneumococcal 13 Conjugate, PCV13 (Prevnar 13) 02/06/2016 Pneumococcal Polysaccharide, PPSV23 (PNEUMOVAX) 02/20/2013 documented as of this encounter Social History Tobacco Use Types Packs/Day Years Used Date Never Smoker Smokeless Tobacco: Never Used Alcohol Use Drinks/Week oz/Week Comments No 0 Standard drinks or equivalent 0.0 Sex Assigned at Date Recorded Not on file COVID-19 Exposure Response Date Recorded In the last month, have you been in contact with No / Unsure 11/16/2019 9:51 AM CDT someone who was confirmed or suspected to have Coronavirus / COVID-19? documented as of this encounter Last Filed Vital Signs Not on filedocumented in this encounter Miscellaneous Notes Telephone Encounter - Shaye Sheffield MA - 12/11/2019 1:41 PM CDTPatients INR is 6.5 on 12.10.2019. Verified current warfarin dose: 10mg/15mg alternating Dr. Vargas recommends for patient to hold today and tomorrow and recheck in thurs. morning. Patient verbalized understanding via [employer]. Per patient yes on new Ax. elephone Encounter - Delores Lenz - 12/11/2019 9:42 AM CDTNekelly Melo From [employer] calling to report INR: 6.5 on 12/10/2019 documented in this encounter Plan of Treatment Date Type Specialty Care Team Description 03/21/2020 Office Visit Endocrinology Diabetes & Varinder Osorio MD Metabolism [address] [place] [address] [phone] Health Maintenance Due Date Last Done Comments DTaP,Tdap,and Td Vaccines (1 - 07/03/1987 Tdap) Breast Cancer Screening 01/21/2017 01/22/2016 (MAMMOGRAM) COLON CANCER SCREENING ANNUAL 2018 FIT/FOBT COLON CANCER SCREENING FIT DNA 2018 EVERY 3 YEARS COLON CANCER SCREENING 2018 SIGMOIDOSCOPY EVERY 5 YEARS COLONOSCOPY 2018 Colorectal Cancer Screening 2018 Zoster Recombinant Vaccine 2018 (SHINGRIX) (1 of 2) PAP SMEAR 09/10/2018 09/11/2015 EYE EXAM 03/20/2019 03/20/2018, 01/09/2014, 01/09/2014 URINE MICROALBUMIN 08/09/2019 08/08/2018, 07/08/2015, 09/02/2011 INFLUENZA VACCINE (#1) 2019 01/02/2019, 01/08/2017, 02/06/2016, Additional history exists HgA1C 03/08/2020 09/06/2019, 05/18/2019, 12/22/2018, Additional history exists CREATININE (SERUM) 09/05/2020 09/06/2019, 04/03/2019, 11/22/2018, Additional history exists LDL-C 09/05/2020 09/06/2019, 08/08/2018, 11/08/2017, Additional history exists Depression Screening 11/15/2020 11/16/2019 FOOT EXAM 11/15/2020 11/16/2019, 11/16/2019, 05/18/2019, Additional history exists PNEUMOCOCCAL 0-64 YEARS COMBINED Completed 02/06/2016, SERIES documented as of this encounter Implants Implanted Type Area Grab Setter Device Shelf Model / Identifier Expiration Serial / Date Lot Mirena Intrauterine System #[id number] - S0 N/A: Pelvis Bard 03/07/2019 [id number] / Implanted: Qty: 1 on 09/28/2016 by Traci Turpin MD at [facility] 0 / [id number] Description:Mabel is senior research project manager, Not i n EPIC documented as of this encounter Results Not on filedocumented in this encounter Insurance Payer Benefit Plan Subscriber ID Effective Dates Phone Address Type / Group HUMANA - HUMANA GOLD [id number] 2019-Presen dicrob Adv MANAGED PLS O t O MEDICARE documented as of this encounter Advance Directives Type Date Recorded Patient Belt Changer Explanati on Advance Directives and Living 06/27/2012 1:28 PM Will Power of Glass Breaker 06/27/2012 1:28 PM
--- OUTSIDE RECORDS SUMMARY | 2020-03-09 17:40 | XMS REPORT | Summary of Care ---
:1970 Author Organization [facility] - Health Address [address] [place] [id number] Care Team Providers Name Role Phone Visit, Nurse Unavailable Unavailable Destiny Soria Primary Care Provider Encounter Details Date Type Department Care Team Description 12/10/2019 Orders Only [facility] Doctor Unassigned, No [address] [facility] [place] [address] Allergies No Known Allergiesdocumented as of this encounter (statuses as of 12/14/2019) Medications Medication Sig Dispensed Refills Start Date [...] pain, right azelastine 137 mcg Use 1 [place] in 30 mL 5 03/01/2019 Active (0.1 %) nasal each nostril 2 sprayIndications: (two) times Allergic rhinitis due daily. Use in to pollen, unspecified each nostril as seasonality directed ipratropium 0.02 % Inhale 500 mcg. 0 Active nebulizer solution fluticasone propionate Use 1 [place] in 1 Bottle 5 05/01/2019 Active 50 [...] ointmentIndications: 3 (three) times Furuncle daily. Insulin [place], Use as directed 300 Each 0 07/05/2019 [...] as of this encounter (statuses as of 12/14/2019) Active Problems Problem Noted Date Unable to walk 06/11/2019 Bilateral hip pain 06/11/2019 Primary osteoarthritis of both knees 06/11/2019 Declining functional status 06/11/2019 Impaired mobility and ADLs 06/11/2019 Pulmonary embolism 11/22/2018 Supratherapeutic INR 09/01/2018 correction current use of anticoagulant 04/22/2018 Acute respiratory failure with hypoxia and hypercapnia 04/01/2017 Hypoxia 01/05/2017 Hypercarbia 09/28/2016 Abnormal uterine bleeding 09/17/2016 Overview: Added automatically from request for nirali coughlin [id number] Dermoid cyst of ovary 05/17/2016 Abnormal uterine [...] as of this encounter (statuses as of 12/14/2019) Resolved Problems Problem Noted Date Resolved Date [...] (hyperlipidemia) 09/02/2011 05/11/2016 Overview: ICD10 Diagnosis Term Assistant Printer Floor Covering Utility Morbid obesity 2011 05/11/2016 Pulmonary embolism 2011 05/11/2016 Diabetes mellitus type 2, uncontrolled, without complication s 2011 12/31/2014 Overview: ICD10 Diagnosis Term Assistant Printer Floor Covering Utility HTN (hypertension) 05/14/2016 ADH disorder 05/11/2016 DM (diabetes mellitus) 05/11/2016 documented as of this encounter (statuses as of 12/14/2019) Immunizations Name Administration Dates Next Due Influenza [...] Signs Not on filedocumented in this encounter Plan of Treatment Date Type Specialty Care Team Description 03/21/2020 Office Visit Endocrinology Diabetes & Varinder Osorio MD Metabolism [address] [facility] [address] [place] [address] 15 [phone] Health Maintenance Due Date Last Done Comments [...] of this encounter Implants Implanted Type Area Intensive Care Unit Nurse Device Shelf Model / Identifier Expiration Serial / Date Lot Mirena Intrauterine System #[id number] - S0 N/A: Pelvis Bard 03/07/2019 [id number] / Implanted: Qty: 1 on 09/28/2016 by Traci Turpin MD at [facility] 0 / [id number] Description:Mabel is manager contact, Not i n EPIC documented as of this encounter Procedures Procedure Name Priority Date/Time Associated Diagnosis Comme nts SCANNED LAB RESULTS Routine 12/10/2019 12:01 AM CDT documented in this encounter Results SCANNED LAB RESULTS (12/10/2019 12:01 AM CDT) Specimen Performing Organization Address [facility] Phone Number HIM documented in this encounter Insurance Payer Benefit Plan Subscriber ID Effective Dates Phone Address Type / Group HUMANA - HUMANA GOLD [id number] 2019-en dicare Adv MANAGED PLS HMO t HMO MEDICARE documented as of this encounter Advance Directives Type Date Recorded Patient Work Environment Safety Inspector Explanati on Advance Directives and Living 06/27/2012 1:28 PM Will Power of Siding Installer 06/27/2012 1:28 PM
--- OUTSIDE RECORDS SUMMARY | 2020-03-09 17:41 | XMS REPORT ---
:1970 Author Organization [facility] Address [address] [place] [address] Care Team Providers Name Role Phone Joseph Unavailable [phone] PROBLEMS Type Condition ICD9-CM [id number] Onset Condition SNOMED Code Notes Code Code Dates Status Problem Morbid (severe) E66.01 Active 243279454 obesity due to excess calories Problem Other chronic G89.29 Active 97737434 pain Problem Type 2 diabetes E11.65 Active 08370030 mellitus with hyperglycemia Problem PCOS (polycystic E28.2 Active 011370519 ovarian syndrome) Problem Mixed E78.2 Active 529276590 hyperlipidemia Problem History of Z86.711 Active 991089019 pulmonary embolism Problem Obstructive sleep G47.33 Active 93290405 apnea (adult) (pediatric) Problem Gout of multiple M10.9 Active 37062132 sites, unspecified cause, unspecified chronicity Problem Metabolic E88.81 Active 103680193 syndrome X Problem 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), predominantly inattentive type Problem Primary M19.012 Active 192894901718122 osteoarthritis, left shoulder Problem Essential I10 Active 85063422 hypertension Problem Primary M19.011 Active 11231053 osteoarthritis, right shoulder Problem Vitamin D E55.9 Active 71947350 deficiency Problem GERD without K21.9 Active 358187125 esophagitis Problem Dependence on Z99.89 Active 615861441 other enabling machines and devices Problem 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 9 ; Type 2 diabetes carmelo itus with hyperglyce devante E11.65 ; Primar y osteoarthritis, right shoulder M19.01 1 ; Essential hyper tension I10 ; Mixed hyperlipidemia E78.2 ; Chronic deep ve in thrombosis (DVT ) of both lower extr emities, unspecified vei n I82.503 ; Gout of multiple sites, unspecified cau se, unspecified chr onicity M10.9 ; Trixie l intertrigo B37. 2 ; Obstructive sle ep apnea (adult) (pediat martha) G47.33 ; Morbid (severe) obesit y due to excess calories E66.01 ; History of pu lmonary embolism Z86.71 1 ; Pain in right should er M25.511 ; Pain in left shoulder M25.51 2 ; Vitamin D defic iency E55.9 ; PCOS (polycystic ova hola syndrome) E28.2 ; GERD without esophag itis K21.9 ; Metabol ic syndrome X E88. 81 ; Attention defic it hyperactivity d isorder (ADHD), predomi nantly inattentive typ e F90.0 ; termite exterminator helper (cu rrent) use of insulin Z79.4 ; Other chronic p ain G89.29 ; Body m ass index (BMI) 70 or greater, adult Z68.45 ; Dependence on o ther enabling elsie es and devices Z99.89 and Physical decond itioning R53.81 IMMUNIZATIONS Vaccine Route Administration Date Status Bupivicaine [place] Unknown September 13, 2019 Administered Afluria Unknown Jan 02, 2019 Administered Afluria Unknown Jan 08, 2017 Administered Afluria Unknown Feb 06, 2016 Administered Afluria Unknown Feb 20, 2013 Administered Afluria Unknown Apr 12, 2011 Administered Bupivicaine [place] Unknown Oct 08, 2019 Administered Prevnar 13 -Pneumonia Vaccine Unknown Feb 06, 2016 Ad ministered PNEUMAVAX 23 Unknown Feb 20, 2013 Administered Kenalog (Triamcinolone) Unknown Oct 08, 2019 Administ ered Kenalog (Triamcinolone) Unknown September 13, 2019 Administ ered SOCIAL HISTORY Tobacco Use: Social History Observation Description Date Details (start date - stop date) Never Smoker Sex Assigned At : Social History Observation Description Sex Assigned At Unknown PHQ9 Question Answer Notes Little interest or pleasure in doing things More than half t he days Feeling down, depressed, or hopeless Several days Trouble falling or staying asleep or sleeping too much Sever al days Feeling tired or having little energy Several days Poor appetite or overeating More than half the days Feeling bad about yourself, or that you are a failure, Sever al days or have let yourself or your family down Trouble concentrating on things, such as reading the Several days newspaper or watching television Moving or speaking so slowly that other people could Not at all have noticed; or the opposite, being so fidgety or restless that you have been moving around a lot more than usual Total Score 9 Interpretation Mild Depression Thoughts that you would be better off or of Not at all hurting yourself in some way Alcohol Screen Question Answer Notes Did you have a drink containing alcohol in the past year? No Points 0 Interpretation Negative Tobacco Use/Smoking Question Answer Notes Are you a never smoker Additional Findings: Tobacco Non-User Current non-smoker REASON FOR REFERRAL No Information VITAL SIGNS Height 64 in Dec, Weight 455 lbs Dec, BMI 78.09 kg/m2 Dec, MEDICATIONS Medication SIG (Take, Route, Start Date End Date Status Frequency, Duration) Lisinopril 40 MG 1 tablet Orally Once a day Active for 90 days Fluticasone Propionate 50 1 spray in each nostril Active MCG/ACT Nasally Once a day NovoLog 100 UNIT/ML 55 units Subcutaneous Two Active times a day for 90 days Azelastine HCl 137 MCG/SPRAY 1 puff in each nostril Active Nasally Twice a day Metoprolol Succinate ER 200 MG 1 tablet Orally Once a day Active for 90 days Montelukast Sodium 10 MG 1 tablet Orally Once a day Active Allopurinol 300 MG 1 tablet Orally Once a day Active for 90 days Clotrimazole-Betamethasone 1 application Externally Active 1-0.05 % Twice a day Coumadin 5 MG 3 tablets Orally Once a day Active Nystatin 468598 UNIT/GM 1 application Externally Active Twice a day Atorvastatin Calcium 40 MG 1 tablet Orally Once a day Active for 90 days Levocetirizine Dihydrochloride 1 tablet in the evening Active 5 MG Orally Once a day MetFORMIN HCl ER 500 MG 1 tablet with evening meal Active Orally Twice a day for 90 days Furosemide 40 MG 1 tablet Orally Twice a Active day for 90 days Ciclopirox 8 % 1 application Externally A ctive Once a day Nifedipine ER 90 mg 1 tablet Orally Once a day Active for 90 days Contour Next Test - as directed In Vitro Active Triamcinolone Acetonide 0.1 % 1 application Externally Active Twice a day [place] 516" 31G X 8 MM as directed for 90 days Active Golytely 236 GM as directed Orally Active Clotrimazole 1 % 1 application Externally Active Twice a day Tramadol HCl 50 MG (Schedule IV Drug) TAKE 1 Active TABLET BY MOUTH EVERY 6 HOURS NEEDED FOR PAIN Oral for 10 Victoza 18 MG/3ML 1.8 Units Subcutaneous Once Active a day for 90 days Mupirocin 2 % 1 application Externally Ac tive Three times a day Amphetamine-Dextroamphetamine (Schedule II Drug) TAKE Active 30 MG HALF OF A TABLET (15 MG) BY MOUTH ONE TIME Oral for 60 Glycopyrrolate-Formoterol 9-4.8 2 puffs Inhalation Twice a Active MCG/ACT day Contour Meter finger stick twice a day A ctive Indomethacin 50 MG 1 capsule with food or milk Active Orally Twice a day Pantoprazole Sodium 40 MG 1 tablet Orally Once a day Active PROCEDURES No Information RESULTS No Results REASON FOR VISIT moles on face burning MEDICAL (GENERAL) HISTORY Type Description Date Medical History Type 2 diabetes mellitus with hyperglyce devante Medical History 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 Medical History Essential hypertension Medical History Mixed hyperlipidemia Medical History History of pulmonary embolism Medical History Gout of multiple sites, unspecified caus e, unspecified chronicity Medical History Dependence on other enabling machines an d devices Medical History Obstructive sleep apnea (adult) (pediatr ic) Medical History Morbid (severe) obesity due to excess ca lories Medical History Body mass index (BMI) 70 or greater, andrew lt Medical History Other chronic pain Medical History Vitamin D deficiency Medical History PCOS (polycystic ovarian syndrome) Medical History GERD without esophagitis Medical History Metabolic syndrome X Medical History Attention deficit hyperactivity disorder (ADHD), predominantly inattentive type Goals Section No Information Health Concerns No Information MEDICAL EQUIPMENT No Information MENTAL STATUS No Information FUNCTIONAL STATUS No Information ASSESSMENTS Encounter Date Diagnosis Notes Dec, GERD without esophagitis (ICD-10 - K21.9 ) Dec, PCOS (polycystic ovarian syndrome) (ICD- 10 - E28.2) Dec, Attention deficit hyperactivity disorder (ADHD), predominantly inattentive type (ICD-10 - F90.0) Dec, Metabolic syndrome X (ICD-10 - E88.81) Dec, Pain in right shoulder (ICD-10 - M25.511 ) Dec, History of pulmonary embolism (ICD-10 - Z86.711) Dec, Vitamin D deficiency (ICD-10 - E55.9) Dec, Pain in left shoulder (ICD-10 - M25.512) Dec, Other chronic pain (ICD-10 - G89.29) Dec, 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 (ICD- 10 - Z79.4) Dec, Skin irritation (ICD-10 - R23.8) Dec, Unknown skin lesion (ICD-10 - L98.9) Dec, Mixed hyperlipidemia (ICD-10 - E78.2) Dec, Essential hypertension (ICD-10 - I10) Dec, Gout of multiple sites, unspecified caus e, unspecified chronicity (ICD-10 - M10.9) Dec, Chronic deep vein thrombosis (DVT) of beto th lower extremities, unspecified vein (ICD-10 - I82.503) Dec, Allergic dermatitis (ICD-10 - L23.9) Dec, Physical deconditioning (ICD-10 - R53.81 ) Dec, Dependence on other enabling machines an d devices (ICD-10 - Z99.89) Dec, Primary osteoarthritis, right shoulder ( ICD-10 - M19.011) Dec, Type 2 diabetes mellitus with hyperglyce devante (ICD-10 - E11.65) Dec, Obstructive sleep apnea (adult) (pediatr ic) (ICD-10 - G47.33) Dec, Candidal intertrigo (ICD-10 - B37.2) Dec, Morbid (severe) obesity due to excess ca lories (ICD-10 - E66.01) Dec, Body mass index (BMI) 70 or greater, andrew lt (ICD-10 - Z68.45) PLAN OF TREATMENT Medication Medication Name Sig Start Date Stop Date Indomethacin 50 MG 1 capsule with food or milk Orally Twice a day Pantoprazole Sodium 40 MG 1 tablet Orally Once a day Mupirocin 2 % 1 application Externally Three times a day Triamcinolone Acetonide 0.1 % 1 application Externally Twice a day NovoLog 100 UNIT/ML 55 units Subcutaneous Two times a day for 90 days Montelukast Sodium 10 MG 1 tablet Orally Once a day Victoza 18 MG/3ML 1.8 Units Subcutaneous Once a day for 90 days Clotrimazole-Betamethasone 1-0.05 1 application Externally Twice % a day Coumadin 5 MG 3 tablets Orally Once a day Atorvastatin Calcium 40 MG 1 tablet Orally Once a day for 90 days MetFORMIN HCl ER 500 MG 1 tablet with evening meal Orally Twice a day for 90 days Furosemide 40 MG 1 tablet Orally Twice a day for 90 days Levocetirizine Dihydrochloride 5 1 tablet in the evening Orally MG Once a day Nifedipine ER 90 mg 1 tablet Orally Once a day for 90 days [place] 07/20" 31G X 8 MM as directed for 90 days Lisinopril 40 MG 1 tablet Orally Once a day for 90 days Metoprolol Succinate ER 200 MG 1 tablet Orally Once a day for 90 days Allopurinol 300 MG 1 tablet Orally Once a day for 90 days Fluticasone Propionate 50 MCG/ACT 1 spray in each nostril Nasally Once a day Azelastine HCl 137 MCG/SPRAY 1 puff in each nostril Nasally Twice a day Treatment Notes Assessment Notes Clinical Notes Pain in right shoulder Managed by orthopedic Unknown skin lesion Unknown etiology. Concern for allergic contact dermatitis with which boogie. Will refer to dermatology for further evaluation management. Discussed supportive measures for symptomatic relief. History of pulmonary embolism Managed by Pulm. On Coumadin Skin irritation . Discussed supportive measures for symptomatic relief. Gentle face wash Vitamin D deficiency Discussed on causes of Vit D Def. Increase sunlight + Hydration + Exercise + Food High in Vit D and OTC supplements. Allergic dermatitis Avoid allergen. Patient has only used once. Pain in left shoulder Managed by orthopedic Type 2 diabetes mellitus with . Managed by [facility] [place] endocrinolog y. hyperglycemia Education given. , Diabetes Education Diabetes is a disorder that disrupts the way your body uses glucose (sugar). It is a chronic medication condition that requires regular monitoring and treatment throughout your life. Treatment includes: lifestyle modification, self-care measures, and medication. Fortunately, these treatments can keep the blood sugar levels close to normal and minimize the risk of developing complications. The primary blood test to measure the progress of diabetes is the Hemoglobin A1c. Normal levels is less than 7.0 but less than 6.5 is considered excellent control. Fasting blood sugars should be in the range of 80-120 while random blood sugars should range below 200 especially after meals. Carbohydrate (sugar) intake for diabetics should be below 45 grams per meal and 15 grams per snack. Diabetic preventive care is vital to prevent complications, so it is important to have yearly diabetic eye and foot exams with specialists. If your diabetes is not controlled, then contact your doctor to further address.Medication may need to be adjusted and/or added. GERD without esophagitis We have discussed the pathophysiology of reflux disease and we discussed lifestyle modifications to avoid reflux that include elevation head of the bed, avoid alcohol, avoid caffeine, avoid maintenance, avoid tight clothing, avoid eating within 3-4 hours before bedtime, and avoiding smoking. Primary osteoarthritis, right Managed by Dr. Marie. shoulder PCOS (polycystic ovarian syndrome) Managed by [employer]. Educatio n given Essential hypertension Stable with current regimen. Side effect discussed. DASH Diet discussed. Instructed to measure BP at home and bring in log to f/u appt. Instructions and logs given. Education given. , HTN Education This is a condition that puts at risk for heart attack, stroke, and kidney disease. Lifestyle modification, low fat/low salt diet, exercise, low alcohol intake and medication is utilized to help control your BP. Untreated HTN increases the strain on the heart and arteries, eventually causing organ damage.Normal BP is less than 140/90. High BP is greater than 140/90. If your BP is not controlled, call your doctor. Medication may need to be adjusted and/or added. Compliance with medication is vital. If you have chest pain, shortness of breath, severe nausea/vomiting, fatigue, and other symptoms, you will need to contact your doctor or go to the ER immediately to address. Attention deficit hyperactivity Managed by psychiatry disorder (ADHD), predominantly inattentive type Mixed hyperlipidemia . Stable with current regimen. Education given. , Hyperlipidemia Education: Hyperlipidemia refers to increased levels of lipids(fats) in the blood, including cholesterol and triglycerides. This can significantly increase your risk of developing coronary artery disease and peripheral artery disease. This can cause chest pain, heart attack, stroke, and fatigue. Treatment is recommended to decrease your risk. Treatment includes: lifestyle modification, low salt/low fat diet, exercise, tobacco cessation, low alcohol intake and sometimes medication. Blood tests (TC,TG, HDL, LDL) are utilized to determine treatment regimens. TC(Total cholesterol) should be below 200. TG(Total Triglycerides) should be below 150. HDL(Good cholesterol) should be above 40. LDL(Bad Cholesterol) should be below 130(if you have one risk factor) or less than 100( if you have more than one risk factor or have DM/CAD/PVD). Compliance with medication and treatment is vital. If you have questions, talk to your doctor. Metabolic syndrome X Referral to bariatric surgeon. Body mass index (BMI) 70 or Counseling given. Education give n. greater, adult Utilized the 5-A''s approach to increase patient motivation and behavioral change. ASK: Patient expressed desire/readiness to change and premission was obtained to discuss. ASSESS: BMI class discussed. In addition, patient''s barrier to weight loss and identified drivers and complications. ADVISE: Discussed benefits of modest weight loss and long-term strategy as well. Educated on risks and complications of obesity on health. Treatment options were discussed including but not limited to non-surgical (medications, gym, diet/exercise) and surgical options. AGREE: Realistic weight-loss goal discussed. Behavioral goals done. Patient agreed with treatment plan. ASSIST: Provided education and resources. Plan made to address drivers and barriers. Close follow-up arranged. START: Walking daily, reducing soda and increased hydration with water of at least 64 ounces. Morbid (severe) obesity due to Referral to bariatric surgeon . excess calories Contact information given. Dr. merlos is out of network Physical deconditioning . impacting activity living. Knee will need new electric wheelchair Obstructive sleep apnea (adult) Compliant with CPAP. (pediatric) Dependence on other enabling . will refer to [employer] as machines and devices current electric wheelchair motorized is deteriorating and breaking. This will impact tremendously on patient's health and increased risk for falls. Please send in order for electric wheelchair motorized. Chronic deep vein thrombosis (DVT) . Managed by pulmonary of both lower extremities, unspecified vein Gout of multiple sites, unspecified . Stable with current r egimen. cause, unspecified chronicity Education given. Encouraged t o make dietary and lifestyle changes Candidal intertrigo . stable with current regimen appointment. Discussed proper hygiene. Education given. Next Appt Details 2 Weeks TV Reason: Provider Name:Paul Ruiz, 2020-01-07 1 0:50:00 AM, [address], [place], [address], Insurance Providers Payer Name Payer Address Payer Insured Patient Coverage Cover age End Phone Name Relationship to Start Date [place] e Ins[place] [employer] [address] [address] [phone] Carolyn Gregory MEDIC[place] [address]23 a R [id number]
--- OUTSIDE RECORDS SUMMARY | 2020-03-09 17:41 | XMS REPORT | Summary of Care ---
:1970 Author Organization [facility] Address [address] [place] [address] Care Team Providers Name Role Phone Visit, Nurse Unavailable Unavailable Destiny Soria Primary Care Provider Reason for Visit Reason Comments Refill Request Encounter Details Date Type Department Care Team Description 12/12/2019 Refill [facility] Cardiology- Catie Vargas MD Refill Request [address], [address] [place] [address] [place] [address] [phone] Allergies No Known Allergiesdocumented as of this encounter (statuses as of 12/14/2019) Medications Medication Sig Dispensed Refills Start End Date Status Date ciclopirox (PENLAC) Apply to 6.6 mL 11 Active 8 % solution area(s) at 5 bedtime. Apply to Nails. clotrimazole-betamet Apply to 45 g 2 Active hasone (LOTRISONE) area(s) 2 (two) 6 cream times daily. PANTOPRAZOLE 40 mg TAKE 1 TABLET BY 60 tablet 0 Active EC tablet MOUTH TWICE 8 DAILY 30 MINUTES BEFORE BREAKFAST AND DINNER glycopyrrolate-formo Inhale. 0 Active terol (BEVESPI AEROSPHERE) 9-4.8 mcg HFAA clotrimazole 1 % Apply to 1 Tube 0 Act marcella topical area(s) 2 (two) 9 creamIndications: times daily. Cutaneous candidiasis nystatin 100,000 Apply to 90 g 11 Act marcella unit/gram area(s) daily. 9 powderIndications: Intertrigo peg-electrolyte soln Take as directed 4000 mL 0 Active 236-22.74-6.74 -5.86 before 9 gram colonoscopy solutionIndications: Special screening for malignant neoplasms, colon indomethacin 50 mg Take 50 mg by 0 Active capsule mouth 2 (two) times daily with meals. clotrimazole-betamet Apply to 45 g 2 Active hasone area(s) 2 (two) 9 creamIndications: times daily. 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 Use in due to pollen, each nostril as unspecified directed seasonality ipratropium 0.02 % Inhale 500 mcg. 0 Active nebulizer solution fluticasone Use 1 [place] in 1 Bottle 5 Act marcella propionate 50 each nostril 0 mcg/actuation nasal daily. sprayIndications: Allergic rhinitis due to pollen, unspecified seasonality levocetirizine 5 mg Take 1 tablet by 90 tablet 1 Active tabletIndications: mouth every 0 Environmental evening. allergies metformin ER 500 mg Take 2 tablets 360 tablet 1 Active 24 hr by mouth 2 (two) 0 tabletIndications: times daily with Uncontrolled type 2 meals. diabetes mellitus with complication, with long-term current use of insulin allopurinoL 300 mg Take 1 tablet by 90 tablet 3 Active tabletIndications: mouth daily. 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 montelukast 10 mg Take 1 tablet by 90 tablet 3 Active tabletIndications: mouth daily. 0 Allergic rhinitis due to pollen, unspecified seasonality triamcinolone Apply BID to red 454 g 1 Active acetonide 0.1 % rash on both 0 ointmentIndications: lower Venous insufficiency extremities; do of both lower not apply to extremities normal, smooth skin mupirocin 2 % Apply to 22 g 5 Active ointmentIndications: area(s) 3 0 Furuncle (three) times daily. Insulin [place], Use as directed 300 Each 0 Active Disposable, (BD to administer 0 INSULIN PEN NEEDLE insulin under UF) 31 gauge x 5/16" skin TID DX: Ndle E11.65 blood sugar Use as directed 200 Strip 0 Ac tive diagnostic to check blood 0 (ACCU-CHEK GUIDE) sugars BID DX: strip E11.8 Blood-Glucose Meter Use as directed 1 Each 0 Active (ACCU-CHEK GUIDE to check blood 0 GLUCOSE METER) Misc sugars BID DX: E11.8 Lancets (ACCU-CHEK Use as directed 200 Each 0 Active FASTCLIX LANCET to check blood 0 DRUM) Misc sugars BID DX: E11.8 LISINOPRIL 40 mg TAKE 1 TABLET 90 tablet 1 Active tabletIndications: EVERY MORNING 0 Essential hypertension, benign warfarin (COUMADIN) Take 3 tablets 90 tablet 1 Active 5 mg by mouth every 0 tabletIndications: evening. Patient Chronic takes Coumadin anticoagulation 10 and 15 mg at alternate days. semaglutide inject 0.5 mg 4 Syringe 3 Acti ve (OZEMPIC) 0.25 mg or under the skin 0 0.5 mg(2 mg/1.5 mL) weekly. PnIjIndications: Uncontrolled type 2 diabetes mellitus with complication, with long-term current use of insulin Insulin Asp inject 60 Units 120 mL 3 Ac tive Prt-Insulin Aspart under the skin 2 0 (NOVOLOG MIX 70-30) (two) times 100 unit/mL (70-30) daily before injectionIndications breakfast and : Uncontrolled type dinner. Dx: 2 diabetes mellitus E11.8 with complication, with long-term current use of insulin escitalopram oxalate Take 10 mg by 0 Active 10 mg tablet mouth daily. 0 NIFEdipine XL Take 60 mg by 0 Ac tive (PROCARDIA XL) 60 mg mouth daily. 24 hr tablet FUROSEMIDE 40 mg TAKE 1 TABLET 180 tablet 1 Active tabletIndications: EVERY MORNING 0 Deep vein thrombosis AND EVENING. (DVT) of proximal vein of right lower extremity, unspecified chronicity, Chronic anticoagulation, NYE (dyspnea on exertion), Thrombotic disorder, Essential hypertension, benign, Uncontrolled hypertension METOPROLOL SUCCINATE TAKE 1 TABLET 90 tablet 1 Active XL 200 mg 24 hr EVERY DAY 0 tabletIndications: Essential hypertension, benign furosemide (LASIX) Take 1 tablet by 180 tablet 1 11/24 Discontinued 40 mg mouth every 0 20 tabletIndications: morning and Deep vein thrombosis evening. (DVT) of proximal vein of right lower extremity, unspecified chronicity, Chronic anticoagulation, NYE (dyspnea on exertion), Thrombotic disorder, Essential hypertension, benign, Uncontrolled hypertension metoprolol succinate Take 1 tablet by 90 tablet 1 Discontinued XL 200 mg 24 hr mouth daily. 0 20 tabletIndications: Essential hypertension, benign documented as of this encounter (statuses as of 12/14/2019) Active Problems Problem Noted Date Unable to walk 06/11/2019 Bilateral hip pain 06/11/2019 Primary osteoarthritis of both knees 06/11/2019 Declining functional status 06/11/2019 Impaired mobility and ADLs 06/11/2019 Pulmonary embolism 11/22/2018 Supratherapeutic INR 09/01/2018 intermediate manager current use of anticoagulant 04/22/2018 Acute respiratory failure with hypoxia and hypercapnia 04/01/2017 Hypoxia 01/05/2017 Hypercarbia 09/28/2016 Abnormal uterine bleeding 09/17/2016 Overview: Added automatically from request for nirali coughlin [id number] Dermoid cyst of ovary 05/17/2016 Abnormal uterine [...] (hyperlipidemia) 09/02/2011 05/11/2016 Overview: ICD10 Diagnosis Term Web Marketing Manager Utility Morbid obesity 2011 05/11/2016 Pulmonary embolism 2011 05/11/2016 Diabetes mellitus type 2, uncontrolled, without complication s 2011 12/31/2014 Overview: ICD10 Diagnosis Term Web Marketing Manager Utility HTN (hypertension) 05/14/2016 ADH disorder 05/11/2016 [...] this encounter Miscellaneous Notes Telephone Encounter - Palak Dickinson RN - 12/14/2019 2:56 PM CDTRefill request received for metoprolol and furosemide. Patient compliant per [facility] Cardiology RefillGuidelines. Rx [facility]: [facility] ([facility] Order) Electronic - DOMENICO Graham [address] Hernandez documented in this encounter Plan of Treatment Date Type Specialty Care Team Description 03/21/2020 Office Visit Endocrinology Diabetes & Varinder Osorio MD Metabolism [address] [place] [address] [phone] Health Maintenance Due Date Last Done Comments [...] of this encounter Implants Implanted Type Area Paper Finisher Device Shelf Model / Identifier Expiration Serial / Date Lot Mirena Intrauterine System #[id number] - S0 N/A: Pelvis Bard 03/07/2019 [id number] / Implanted: Qty: 1 on 09/28/2016 by Traci Turpin MD at [facility] 0 / [id number] 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, 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 i 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 documented as of this encounter Results Not on filedocumented in this encounter Visit Diagnoses Diagnosis Deep vein thrombosis (DVT) of proximal v ein of right lower extremity, unspecified chronicity Chronic anticoagulation Encounter for long-term (current) use of anticoagulants NYE (dyspnea on exertion) Other dyspnea and respiratory abnormalit y Thrombotic disorder Embolism and thrombosis of unspecified s ite Essential hypertension, benign Uncontrolled hypertension Unspecified essential hypertension documented in this encounter Insurance Payer Benefit Plan Subscriber ID Effective Dates Phone Address Type / Group HUMANA - HUMANA LAZ [id number] 2019-Presnoris Gill MANAGED PLS O t O MEDICARE documented as of this encounter Advance Directives Type Date Recorded Patient Pet Care Assistant Explanati on Advance Directives and Living 06/27/2012 1:28 PM Will Power of Production Metal Sprayer 06/27/2012 1:28 PM
--- OUTSIDE RECORDS SUMMARY | 2020-03-09 17:41 | XMS REPORT | Summary of Care ---
:1970 Author Organization [facility] [employer] [facility] Address [address] [place] [address] Care Team Providers Name Role Phone Visit, Nurse Unavailable Unavailable Destiny Soria Primary Care Provider Reason for Visit Reason Comments Anticoagulation INR critical result 5.4 Encounter Details Date Type Department Care Team Description 01/08/2020 Telephone [facility] Catie Vargas Anticoagulati on ([facility] Cardiology- Shawn Lopez MD critical result 5.4) [facility] [address], [address] [place] [phone] Allergies No Known Allergiesdocumented as of this encounter (statuses as of 01/08/2020) Medications Medication Sig Dispensed Refills Start Date [...] pain, right azelastine 137 mcg Use 1 [place] in 30 mL 5 03/01/2019 Active (0.1 %) nasal each nostril 2 sprayIndications: (two) times Allergic rhinitis due daily. Use in to pollen, unspecified each nostril as seasonality directed ipratropium 0.02 % Inhale 500 mcg. 0 Active nebulizer solution fluticasone propionate Use 1 [place] in 1 Bottle 5 05/01/2019 Active 50 [...] ointmentIndications: 3 (three) times Furuncle daily. Insulin [place], Use as directed 300 Each 0 07/05/2019 [...] mg TAKE 1 TABLET 180 tablet 1 12/14/2019 Active tabletIndications: EVERY MORNING AND Deep vein thrombosis EVENING. (DVT) of proximal vein of right lower extremity, unspecified chronicity, Chronic anticoagulation, NYE (dyspnea on exertion), Thrombotic disorder, Essential hypertension, benign, Uncontrolled hypertension METOPROLOL SUCCINATE TAKE 1 TABLET 90 tablet 1 12/14/2019 Active XL 200 mg 24 hr EVERY DAY tabletIndications: Essential hypertension, benign documented as of this encounter (statuses as of 01/08/2020) Active Problems Problem Noted Date Unable to walk 06/11/2019 Bilateral hip pain 06/11/2019 Primary osteoarthritis of both knees 06/11/2019 Declining functional status 06/11/2019 Impaired mobility and ADLs 06/11/2019 Pulmonary embolism 11/22/2018 Supratherapeutic INR 09/01/2018 longterm current use of anticoagulant 04/22/2018 Acute respiratory failure with hypoxia and hypercapnia 04/01/2017 Hypoxia 01/05/2017 Hypercarbia 09/28/2016 Abnormal uterine bleeding 09/17/2016 Overview: Added automatically from request for nirali coughlin [id number] Dermoid cyst of ovary 05/17/2016 Abnormal uterine [...] as of this encounter (statuses as of 01/08/2020) Resolved Problems Problem Noted Date Resolved Date [...] (hyperlipidemia) 09/02/2011 05/11/2016 Overview: ICD10 Diagnosis Term Adaptive Physical Educator Utility Morbid obesity 2011 05/11/2016 Pulmonary embolism 2011 05/11/2016 Diabetes mellitus type 2, uncontrolled, without complication s 2011 12/31/2014 Overview: ICD10 Diagnosis Term Adaptive Physical Educator Utility HTN (hypertension) 05/14/2016 ADH disorder 05/11/2016 DM (diabetes mellitus) 05/11/2016 documented as of this encounter (statuses as of 01/08/2020) Immunizations Name Administration Dates Next Due Influenza [...] Assigned at Date Recorded Not on file documented as of this encounter Last Filed Vital Signs Not on filedocumented in this encounter Miscellaneous Notes Telephone Encounter - Janet Arriaga RN - 01/08/2020 2:09 PM CSTAttempted to contact patient regarding below results and recommendations. LVM to return call to clinic. GER COMPENSATION Telephone Encounter - Catie Vargas MD - 01/08/2020 11:02 AM CSTHold coumadin for 2 days (today and tomorrow) and rpt INR on AM before 12. GER COMPENSATION Telephone Encounter - Janet Arriaga RN - 01/08/2020 10:03 AM CSTScott from [employer] called with INR critical value of 5.4 on 01/07/20. Routing to provider for review. 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
--- OUTSIDE RECORDS SUMMARY | 2020-03-09 17:42 | XMS REPORT | Summary of Care ---
:1970 Author Organization [facility] [email or web address] [facility] Address [address] [place] [address] Care Team Providers Name Role Phone Visit, Nurse Unavailable Unavailable Destiny Soria Primary Care Provider Reason for Visit Reason Comments Anticoagulation Encounter Details Date Type Department Care Team Description 01/25/2020 Telephone [facility] Cardiology- Catie Vargas, Anticoagulation Shawn MORGAN [address] [facility], [address] [place] [address] [place], [place] [phone] [address] Allergies No Known Allergiesdocumented as of this encounter (statuses as of 01/25/2020) Medications Medication Sig Dispensed Refills Start Date [...] pain, right azelastine 137 mcg Use 1 [place] in 30 mL 5 03/01/2019 Active (0.1 %) nasal each nostril 2 sprayIndications: (two) times Allergic rhinitis due daily. Use in to pollen, unspecified each nostril as seasonality directed ipratropium 0.02 % Inhale 500 mcg. 0 Active nebulizer solution fluticasone propionate Use 1 [place] in 1 Bottle 5 05/01/2019 Active 50 [...] ointmentIndications: 3 (three) times Furuncle daily. Insulin [place], Use as directed 300 Each 0 07/05/2019 [...] as of this encounter (statuses as of 01/25/2020) Active Problems Problem Noted Date Unable to [...] Added automatically from request for nirali coughlin [id number] Dermoid cyst of ovary 05/17/2016 Abnormal uterine [...] as of this encounter (statuses as of 01/25/2020) Resolved Problems Problem Noted Date Resolved Date [...] (hyperlipidemia) 09/02/2011 05/11/2016 Overview: ICD10 Diagnosis Term Bliss Press Operator Utility Morbid obesity 2011 05/11/2016 Pulmonary embolism 2011 05/11/2016 Diabetes mellitus type 2, uncontrolled, without complication s 2011 12/31/2014 Overview: ICD10 Diagnosis Term Bliss Press Operator Utility HTN (hypertension) 05/14/2016 ADH disorder 05/11/2016 DM (diabetes mellitus) 05/11/2016 documented as of this encounter (statuses as of 01/25/2020) Immunizations Name Administration Dates Next Due Influenza [...] Telephone Encounter - Janet Arriaga RN - 01/25/2020 4:10 PM CSTPatients INR is 2.3 on 01.25.20. Verified current warfarin dose: 10 mg and [address] Vargas recommends for patient to continue dose and recheck in Tuesday01.30.20. Patient verbalized understanding via Te[employer]. 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 documented in this encounter Plan of Treatment Date Type Specialty Care Team Description 03/21/2020 Office Visit Endocrinology Diabetes & Jen yVarinder MD Metabolism [address] [place] [address] 15 [phone] Health Maintenance Due Date Last Done Comments [...] of this encounter Implants Implanted Type Area Education Program Associate Device Shelf Model / Identifier Expiration Serial / Date Lot Mirena Intrauterine System #[id number] - S0 N/A: Pelvis Bard 03/07/2019 [id number] / Implanted: Qty: 1 on 09/28/2016 by Traci Turpin MD at [facility] 0 / [id number] 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
--- OUTSIDE RECORDS SUMMARY | 2020-03-09 17:42 | XMS REPORT | Summary of Care ---
:1970 Author Organization [facility] Address [address] [place] [address] Care Team Providers Name Role Phone Visit, Nurse Unavailable Unavailable Destiny Soria Primary Care Provider Reason for Visit Reason Comments Anticoagulation INR critical result 5.4 Encounter Details Date Type Department Care Team Description 01/08/2020 Telephone [facility] Catie Vargas Anticoagulati on ([facility] Cardiology- Shawn Lopez MD critical result 5.4) [facility] [address], [address] [place] [phone] Allergies No Known Allergiesdocumented as of this encounter (statuses as of 01/10/2020) Medications Medication Sig Dispensed Refills Start Date [...] pain, right azelastine 137 mcg Use 1 [place] in 30 mL 5 03/01/2019 Active (0.1 %) nasal each nostril 2 sprayIndications: (two) times Allergic rhinitis due daily. Use in to pollen, unspecified each nostril as seasonality directed ipratropium 0.02 % Inhale 500 mcg. 0 Active nebulizer solution fluticasone propionate Use 1 [place] in 1 Bottle 5 05/01/2019 Active 50 [...] ointmentIndications: 3 (three) times Furuncle daily. Insulin [place], Use as directed 300 Each 0 07/05/2019 [...] as of this encounter (statuses as of 01/10/2020) Active Problems Problem Noted Date Unable to walk 06/11/2019 Bilateral hip pain 06/11/2019 Primary osteoarthritis of both knees 06/11/2019 Declining functional status 06/11/2019 Impaired mobility and ADLs 06/11/2019 Pulmonary embolism 11/22/2018 Supratherapeutic INR 09/01/2018 shelter current use of anticoagulant 04/22/2018 Acute respiratory failure with hypoxia and hypercapnia 04/01/2017 Hypoxia 01/05/2017 Hypercarbia 09/28/2016 Abnormal uterine bleeding 09/17/2016 Overview: Added automatically from request for nirali coughlin [id number] Dermoid cyst of ovary 05/17/2016 Abnormal uterine [...] as of this encounter (statuses as of 01/10/2020) Resolved Problems Problem Noted Date Resolved Date [...] (hyperlipidemia) 09/02/2011 05/11/2016 Overview: ICD10 Diagnosis Term Poem Writer Utility Morbid obesity 2011 05/11/2016 Pulmonary embolism 2011 05/11/2016 Diabetes mellitus type 2, uncontrolled, without complication s 2011 12/31/2014 Overview: ICD10 Diagnosis Term Poem Writer Utility HTN (hypertension) 05/14/2016 ADH disorder 05/11/2016 DM (diabetes mellitus) 05/11/2016 documented as of this encounter (statuses as of 01/10/2020) Immunizations Name Administration Dates Next Due Influenza [...] this encounter Miscellaneous Notes Telephone Encounter - Tucker Keane - 01/10/2020 9:39 AM CSTPatient is returning missed call from other day, please call back at [phone] (home). Thank you. GEMENT COORDINATOR Telephone Encounter - Janet Arriaga RN - 01/08/2020 2:09 PM CSTAttempted to contact patient regarding below results and recommendations. LVM to return call to clinic. GEMENT COORDINATOR Telephone Encounter - Catie Vargas MD - 01/08/2020 11:02 AM CSTHold coumadin for 2 days (today and tomorrow) and rpt INR on AM before 12. GEMENT COORDINATOR Telephone Encounter - Janet Arriaga RN - 01/08/2020 10:03 AM CSTScott from [employer] called with INR critical value of 5.4 on 01/07/20. Routing to provider for review. 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
--- OUTSIDE RECORDS SUMMARY | 2020-03-09 17:42 | XMS REPORT | Summary of Care ---
:1970 Author Organization [facility] Central Desktop [facility] Address [address] [place] [address] Care Team Providers Name Role Phone Visit, Nurse Unavailable Unavailable Destiny Soria Primary Care Provider Reason for Visit Reason Comments Anticoagulation INR critical result 5.4 Encounter Details Date Type Department Care Team Description 01/08/2020 Telephone [facility] Catie Vargas Anticoagulati on (INR Cardiology- Shawn Lopez MD critical result 5.4) [facility] [address] [facility] [address] [place], [address] [place] [phone] Allergies No Known Allergiesdocumented as of this encounter (statuses as of 01/11/2020) Medications Medication Sig Dispensed Refills Start Date [...] pain, right azelastine 137 mcg Use 1 [place] in 30 mL 5 03/01/2019 Active (0.1 %) nasal each nostril 2 sprayIndications: (two) times Allergic rhinitis due daily. Use in to pollen, unspecified each nostril as seasonality directed ipratropium 0.02 % Inhale 500 mcg. 0 Active nebulizer solution fluticasone propionate Use 1 [place] in 1 Bottle 5 05/01/2019 Active 50 [...] ointmentIndications: 3 (three) times Furuncle daily. Insulin [place], Use as directed 300 Each 0 07/05/2019 [...] as of this encounter (statuses as of 01/11/2020) Active Problems Problem Noted Date Unable to [...] Added automatically from request for nirali coughlin [id number] Dermoid cyst of ovary 05/17/2016 Abnormal uterine [...] as of this encounter (statuses as of 01/11/2020) Resolved Problems Problem Noted Date Resolved Date [...] (hyperlipidemia) 09/02/2011 05/11/2016 Overview: ICD10 Diagnosis Term Director Global Market Research Utility Morbid obesity 2011 05/11/2016 Pulmonary embolism 2011 05/11/2016 Diabetes mellitus type 2, uncontrolled, without complication s 2011 12/31/2014 Overview: ICD10 Diagnosis Term Director Global Market Research Utility HTN (hypertension) 05/14/2016 ADH disorder 05/11/2016 DM (diabetes mellitus) 05/11/2016 documented as of this encounter (statuses as of 01/11/2020) Immunizations Name Administration Dates Next Due Influenza [...] Telephone Encounter - Janet Arriaga RN - 01/11/2020 9:37 AM CSTAttempted to contact patient. LVM to return call to clinic. elephone Encounter - Tucker Keane - 01/10/2020 9:39 AM CSTPatient is returning missed call from other day, please call back at [phone] (home). Thank you. TER HELPER Telephone Encounter - Janet Arriaga RN - 01/08/2020 2:09 PM CSTAttempted to contact patient regarding below results and recommendations. LVM to return call to clinic. TER HELPER Telephone Encounter - Catie Vargas MD - 01/08/2020 11:02 AM CSTHold coumadin for 2 days (today and tomorrow) and rpt INR on AM before 12. TER HELPER Telephone Encounter - Janet Arriaga RN - 01/08/2020 10:03 AM CSTScott from [employer] called with INR critical value of 5.4 on 01/07/20. Routing to provider for review. documented in this encounter Plan of Treatment Date Type Specialty Care Team Description 03/21/2020 Office Visit Endocrinology Diabetes & Varinder Osorio MD [place] [address] [phone] Health Maintenance Due Date Last Done Comments [...] of this encounter Implants Implanted Type Area University Extension Specialist Device Shelf Model / Identifier Expiration Serial / Date Lot Mirena Intrauterine System #[id number] - S0 N/A: Pelvis Bard 03/07/2019 [id number] / Implanted: Qty: 1 on 09/28/2016 by Traci Turpin MD at [facility] 0 / [id number] Description:Mabel is record pressman, Not i n EPIC documented as of this encounter Results Not on filedocumented in this encounter Insurance Payer Benefit Plan Subscriber ID Effective Dates Phone Address Type / Group HUMANA - HUMANA GOLD [id number] 2019-Presen Me dicare Adv MANAGED PLS HMO t HMO MEDICARE documented as of this encounter Advance Directives Type Date Recorded Patient Mold Filler Plastic Dolls Explanati on Advance Directives and Living 06/27/2012 1:28 PM Will Power of Grinder Set Up Operator Centerless 06/27/2012 1:28 PM
--- OUTSIDE RECORDS SUMMARY | 2020-03-09 17:42 | XMS REPORT | Summary of Care ---
:1970 Author Organization [facility] Address [address] [place] [address] Care Team Providers Name Role Phone Visit, Nurse Unavailable Unavailable Destiny Soria Primary Care Provider Reason for Visit Reason Comments Anticoagulation INR 6.6 Encounter Details Date Type Department Care Team Description 01/23/2020 Telephone [facility] Catie Vargas Anticoagulati on (INR 6.6) Cardiology- Shawn Lopez MD [address] [place] [address] [address] [facility] [place], [address] [place] [phone] Allergies No Known Allergiesdocumented as of this encounter (statuses as of 01/23/2020) Medications Medication Sig Dispensed Refills Start Date [...] pain, right azelastine 137 mcg Use 1 [place] in 30 mL 5 03/01/2019 Active (0.1 %) nasal each nostril 2 sprayIndications: (two) times Allergic rhinitis due daily. Use in to pollen, unspecified each nostril as seasonality directed ipratropium 0.02 % Inhale 500 mcg. 0 Active nebulizer solution fluticasone propionate Use 1 [place] in 1 Bottle 5 05/01/2019 Active 50 [...] ointmentIndications: 3 (three) times Furuncle daily. Insulin [place], Use as directed 300 Each 0 07/05/2019 [...] as of this encounter (statuses as of 01/23/2020) Active Problems Problem Noted Date Unable to walk 06/11/2019 Bilateral hip pain 06/11/2019 Primary osteoarthritis of both knees 06/11/2019 Declining functional status 06/11/2019 Impaired mobility and ADLs 06/11/2019 Pulmonary embolism 11/22/2018 Supratherapeutic INR 09/01/2018 penitentiary current use of anticoagulant 04/22/2018 Acute respiratory failure with hypoxia and hypercapnia 04/01/2017 Hypoxia 01/05/2017 Hypercarbia 09/28/2016 Abnormal uterine bleeding 09/17/2016 Overview: Added automatically from request for nirali ced [id number] Dermoid cyst of ovary 05/17/2016 Abnormal uterine [...] as of this encounter (statuses as of 01/23/2020) Resolved Problems Problem Noted Date Resolved Date [...] (hyperlipidemia) 09/02/2011 05/11/2016 Overview: ICD10 Diagnosis Term Reimbursement Liaison Utility Morbid obesity 2011 05/11/2016 Pulmonary embolism 2011 05/11/2016 Diabetes mellitus type 2, uncontrolled, without complication s 2011 12/31/2014 Overview: ICD10 Diagnosis Term Reimbursement Liaison Utility HTN (hypertension) 05/14/2016 ADH disorder 05/11/2016 DM (diabetes mellitus) 05/11/2016 documented as of this encounter (statuses as of 01/23/2020) Immunizations Name Administration Dates Next Due Influenza [...] Telephone Encounter - Janet Arriaga RN - 01/23/2020 11:21 AM CSTPatients INR is 6.6 on 01.23.20. Verified current warfarin dose: 10 mg and [address] Vargas recommends for patient to hold coumadin for 2 days and recheck in Tuesday01/25/20 early AM and call us with results. Patient verbalized understanding via [employer]. FING MACHINE OPERATOR Telephone Encounter - Janet Arriaga RN - 01/23/2020 9:54 AM CSTLashondra from [employer] called with critical INR lab value of 6.6. Message sent to provider for orders. documented in this encounter Plan of Treatment Date Type Specialty Care Team Description 03/21/2020 Office Visit Endocrinology Diabetes & Varinder Osorio MD Metabolism [address] [place] [address] 15 [phone] Health Maintenance Due Date Last Done Comments [...] of this encounter Implants Implanted Type Area Service Captain Device Shelf Model / Identifier Expiration Serial / Date Lot Mirena Intrauterine System #[id number] - S0 N/A: Pelvis Bard 03/07/2019 [id number] / Implanted: Qty: 1 on 09/28/2016 by Traci Turpin MD at [facility] 0 / [id number] Description:Mabel is animal eviscerator, Not i n EPIC documented as of this encounter Results Not on filedocumented in this encounter Insurance Payer Benefit Plan Subscriber ID Effective Dates Phone Address Type / Group HUMANA - HUMANA GOLD [id number] 2019-Lianne Gill MANAGED PLS HMO t HMO MEDICARE documented as of this encounter Advance Directives Type Date Recorded Patient Fabrication Mig Welder Explanati on Advance Directives and Living 06/27/2012 1:28 PM Will Power of Digital Press Operator 06/27/2012 1:28 PM
--- OUTSIDE RECORDS SUMMARY | 2020-03-09 17:43 | XMS REPORT | Summary of Care ---
:1970 Author Organization [facility] Address [address] [place] [address] Care Team Providers Name Role Phone Visit, Nurse Unavailable Unavailable Destiny Soria Primary Care Provider Reason for Visit Reason Comments Refill Request Encounter Details Date Type Department Care Team Description 01/18/2020 Refill [facility] Cardiology- Catie Vargas MD Refill Request [address], [address] [place] [address] [place] [address] [phone] Allergies No Known Allergiesdocumented as of this encounter (statuses as of 01/25/2020) Medications Medication Sig Dispensed Refills Start End [...] pain, right azelastine 137 mcg Use 1 [place] in 30 mL 5 Active (0.1 %) nasal each nostril 2 9 sprayIndications: (two) times Allergic rhinitis daily. Use in due to pollen, each nostril as unspecified directed seasonality ipratropium 0.02 % Inhale 500 mcg. 0 Active nebulizer solution fluticasone Use 1 [place] in 1 Bottle 5 Act marcella propionate [...] 3 0 Furuncle (three) times daily. Insulin [place], Use as directed 300 Each 0 Active [...] tabletIndications: EVERY MORNING 0 Essential hypertension, benign semaglutide inject 0.5 mg 4 Syringe 3 [...] EVERY DAY 0 tabletIndications: Essential hypertension, benign WARFARIN 5 mg TAKE 3 TABLETS 270 tablet 0 Active tabletIndications: BY MOUTH EVERY 0 Chronic EVENING. anticoagulation warfarin (COUMADIN) Take 3 tablets 90 tablet 1 01/24 Discontinued 5 mg by mouth every 0 20 tabletIndications: evening. Patient Chronic takes Coumadin anticoagulation 10 and 15 mg at alternate days. 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 04/22/2018 Acute respiratory failure with hypoxia and hypercapnia 04/01/2017 Hypoxia 01/05/2017 Hypercarbia 09/28/2016 Abnormal uterine bleeding 09/17/2016 Overview: Added automatically from request for nirali coughlin [id number] Dermoid cyst of ovary 05/17/2016 Abnormal uterine [...] (hyperlipidemia) 09/02/2011 05/11/2016 Overview: ICD10 Diagnosis Term Box Sealing Machine Catcher Utility Morbid obesity 2011 05/11/2016 Pulmonary embolism 2011 05/11/2016 Diabetes mellitus type 2, uncontrolled, without complication s 2011 12/31/2014 Overview: ICD10 Diagnosis Term Box Sealing Machine Catcher Utility HTN (hypertension) 05/14/2016 ADH disorder 05/11/2016 [...] & Varinder Osorio MD Metabolism [address] [facility] [address] [place] [address] [phone] Health Maintenance Due Date Last Done Comments [...] of this encounter Implants Implanted Type Area Dredge Captain Device Shelf Model / Identifier Expiration Serial / Date Lot Mirena Intrauterine System #[id number] - S0 N/A: Pelvis Bard 03/07/2019 [id number] / Implanted: Qty: 1 on 09/28/2016 by Traci Turpin MD at [facility] 0 / [id number] Description:Mabel is office manager executive assistant, Not i n EPIC documented as of this encounter Results Not on filedocumented in this encounter Visit Diagnoses Diagnosis Chronic anticoagulation Encounter for long-term (current) use of anticoagulants documented in this encounter Insurance Payer Benefit Plan Subscriber ID Effective Dates Phone Address Type / Group HUMANA - HUMANA GOLD [id number] 2019-Lianne collins Adv MANAGED PLS O t O MEDICARE documented as of this encounter Advance Directives Type Date Recorded Patient Horticultural Specialty Grower Explanati on Advance Directives and Living 06/27/2012 1:28 PM Will Power of Vp Strategic Planning 06/27/2012 1:28 PM
--- OUTSIDE RECORDS SUMMARY | 2020-03-09 17:44 | XMS REPORT | Summary of Care ---
:1970 Author Organization [facility] - Health Address [address] [place] [address] Care Team Providers Name Role Phone Visit, Nurse Unavailable Unavailable Destiny Soria Primary Care Provider Encounter Details Date Type Department Care Team Description 01/23/2020 Orders Only [facility] Doctor Unassigned, [address] [facility] [place] [address] Allergies No Known Allergiesdocumented as of this encounter (statuses as of 02/13/2020) Medications Medication Sig Dispensed Refills Start Date [...] pain, right azelastine 137 mcg Use 1 [place] in 30 mL 5 03/01/2019 Active (0.1 %) nasal each nostril 2 sprayIndications: (two) times Allergic rhinitis due daily. Use in to pollen, unspecified each nostril as seasonality directed ipratropium 0.02 % Inhale 500 mcg. 0 Active nebulizer solution fluticasone propionate Use 1 [place] in 1 Bottle 5 05/01/2019 Active 50 [...] ointmentIndications: 3 (three) times Furuncle daily. Insulin [place], Use as directed 300 Each 0 07/05/2019 [...] Active tabletIndications: EVERY MORNING Essential hypertension, benign semaglutide (OZEMPIC) inject 0.5 mg 4 Syringe [...] hr EVERY DAY tabletIndications: Essential hypertension, benign WARFARIN 5 mg TAKE 3 TABLETS BY 270 tablet 0 01/25/2020 Active tabletIndications: MOUTH EVERY Chronic EVENING. 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 of anticoagulant 04/22/2018 Acute respiratory failure with hypoxia and hypercapnia 04/01/2017 Hypoxia 01/05/2017 Hypercarbia 09/28/2016 Abnormal uterine bleeding 09/17/2016 Overview: Added automatically from request for nirali coughlin [id number] Dermoid cyst of ovary 05/17/2016 Abnormal uterine [...] as of this encounter (statuses as of 02/13/2020) Resolved Problems Problem Noted Date Resolved Date [...] (hyperlipidemia) 09/02/2011 05/11/2016 Overview: ICD10 Diagnosis Term Sprigger Utility Morbid obesity 2011 05/11/2016 Pulmonary embolism 2011 05/11/2016 Diabetes mellitus type 2, uncontrolled, without complication s 2011 12/31/2014 Overview: ICD10 Diagnosis Term Sprigger Utility HTN (hypertension) 05/14/2016 ADH disorder 05/11/2016 DM (diabetes mellitus) 05/11/2016 documented as of this encounter (statuses as of 02/13/2020) Immunizations Name Administration Dates Next Due Influenza [...] & Varinder Osorio MD Metabolism [address] [facility] [place] [address] [phone] Health Maintenance Due Date Last Done Comments [...] of this encounter Implants Implanted Type Area Qa Consultant Device Shelf Model / Identifier Expiration Serial / Date Lot Mirena Intrauterine System #[id number] - S0 N/A: Pelvis Bard 03/07/2019 [id number] / Implanted: Qty: 1 on 09/28/2016 by Traci Turpin MD at [facility] 0 / [id number] Description:Mabel is dredge captain, Not i n EPIC documented as of this encounter Procedures Procedure Name Priority Date/Time Associated Diagnosis Comme nts SCANNED LAB RESULTS Routine 01/23/2020 12:01 AM RESTORATIVE COORDINATOR documented in this encounter Results SCANNED LAB RESULTS (01/23/2020 12:01 AM RESTORATIVE COORDINATOR) Specimen Performing Organization Address City/State/Zipcode Phone Number HIM documented in this encounter Insurance Payer Benefit Plan Subscriber ID Effective Dates Phone Address Type / Group HUMANA - HUMANA LAZ [id number] 2019-Lianne collins Adv MANAGED PLS O t O MEDICARE documented as of this encounter Advance Directives Type Date Recorded Patient Steel Barrel Reamer Explanati on Advance Directives and Living 06/27/2012 1:28 PM Will Power of Machine Loader 06/27/2012 1:28 PM
--- OUTSIDE RECORDS SUMMARY | 2020-03-09 17:44 | XMS REPORT | Summary of Care ---
:1970 Author Organization [facility] - Health Address [address] [place] [address] Care Team Providers Name Role Phone Visit, Nurse Unavailable Unavailable Destiny Soria Primary Care Provider Encounter Details Date Type Department Care Team Description 01/07/2020 Orders Only [facility] Doctor Unassigned, [address] [facility] [place] [address] Allergies No Known Allergiesdocumented as of this encounter (statuses as of 02/06/2020) Medications Medication Sig Dispensed Refills Start Date End Date Status ciclopirox (PENLAC) 8 Apply to area(s) 6.6 mL 11 02/05/2015 Active % solution at bedtime. Apply to Nails. clotrimazole-betameth Apply to area(s) 45 g 2 02/18/2016 Active asone (LOTRISONE) 2 (two) times cream daily. PANTOPRAZOLE 40 mg EC TAKE 1 TABLET BY 60 tablet 0 03/16/2017 Active tablet MOUTH TWICE DAILY 30 MINUTES BEFORE BREAKFAST AND DINNER glycopyrrolate-formot Inhale. 0 Active catherine (BEVESPI AEROSPHERE) 9-4.8 mcg HFAA clotrimazole 1 % Apply to area(s) 1 Tube 0 06/22/2018 Active topical 2 (two) times creamIndications: daily. Cutaneous candidiasis nystatin 100,000 Apply to area(s) 90 g 11 07/04/2018 Active unit/gram daily. powderIndications: Intertrigo peg-electrolyte soln Take as directed 4000 mL 0 07/17/2018 Active 236-22.74-6.74 -5.86 before colonoscopy gram solutionIndications: Special screening for malignant neoplasms, colon indomethacin 50 mg Take 50 mg by 0 Active capsule mouth 2 (two) times daily with meals. clotrimazole-betameth Apply to area(s) 45 g 2 09/27/2018 Active asone 2 (two) times creamIndications: daily. 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 Allergic rhinitis due Use in each to pollen, nostril as unspecified directed seasonality ipratropium 0.02 % Inhale 500 mcg. 0 Active nebulizer solution fluticasone Use 1 [place] in 1 Bottle 5 05/01/2019 Ac tive propionate 50 each nostril mcg/actuation nasal daily. sprayIndications: Allergic rhinitis due to pollen, unspecified seasonality levocetirizine 5 mg Take 1 tablet by 90 tablet 1 05/16/2019 Active tabletIndications: mouth every Environmental evening. allergies metformin ER 500 mg Take 2 tablets by 360 tablet 1 05/25/2019 Active 24 hr mouth 2 (two) tabletIndications: times daily with Uncontrolled type 2 [...] Active acetonide 0.1 % rash on both lower ointmentIndications: extremities; do Venous insufficiency not apply to of both lower normal, smooth extremities skin mupirocin 2 % Apply to area(s) 22 g 5 06/06/2019 Active ointmentIndications: 3 (three) times Furuncle daily. Insulin [place], Use as directed to 300 Each 0 07/05/2019 Active Disposable, (BD administer insulin INSULIN PEN NEEDLE under skin TID DX: UF) 31 gauge x 5/16" E11.65 Ndle blood sugar Use as directed to 200 Strip 0 10/04/2019 Active diagnostic (ACCU-CHEK check blood sugars GUIDE) strip BID DX: E11.8 Blood-Glucose Meter Use as directed to 1 Each 0 10/04/2019 Active (ACCU-CHEK GUIDE check blood sugars GLUCOSE METER) Misc BID DX: E11.8 Lancets (ACCU-CHEK Use as directed to 200 Each 0 10/04/2019 Active FASTCLIX LANCET DRUM) check blood sugars Misc BID DX: E11.8 LISINOPRIL 40 mg TAKE [...] as of this encounter (statuses as of 02/06/2020) Active Problems Problem Noted Date Unable to walk 06/11/2019 Bilateral hip pain 06/11/2019 Primary osteoarthritis of both knees 06/11/2019 Declining functional status 06/11/2019 Impaired mobility and ADLs 06/11/2019 Pulmonary embolism 11/22/2018 Supratherapeutic INR 09/01/2018 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 04/22/2018 Acute respiratory failure with hypoxia and hypercapnia 04/01/2017 Hypoxia 01/05/2017 Hypercarbia 09/28/2016 Abnormal uterine bleeding 09/17/2016 Overview: Added automatically from request for nirali ced [id number] Dermoid cyst of ovary 05/17/2016 Abnormal uterine [...] as of this encounter (statuses as of 02/06/2020) Resolved Problems Problem Noted Date Resolved Date [...] (hyperlipidemia) 09/02/2011 05/11/2016 Overview: ICD10 Diagnosis Term Automation Mechanic Utility Morbid obesity 2011 05/11/2016 Pulmonary embolism 2011 05/11/2016 Diabetes mellitus type 2, uncontrolled, without complication s 2011 12/31/2014 Overview: ICD10 Diagnosis Term Automation Mechanic Utility HTN (hypertension) 05/14/2016 ADH disorder 05/11/2016 DM (diabetes mellitus) 05/11/2016 documented as of this encounter (statuses as of 02/06/2020) Immunizations Name Administration Dates Next Due Influenza [...] & Varinder Osorio MD Metabolism [address] [place] [address] [phone] Health Maintenance Due Date Last Done Comments [...] of this encounter Implants Implanted Type Area Rib Knitter Device Shelf Model / Identifier Expiration Serial / Date Lot Mirena Intrauterine System #[id number] - S0 N/A: Pelvis Bard 03/07/2019 [id number] / Implanted: Qty: 1 on 09/28/2016 by Traci Turpin MD at [facility] 0 / [id number] Description:Mabel is reproduction production manager, Not i n EPIC documented as of this encounter Procedures Procedure Name Priority Date/Time Associated Diagnosis Comme nts SCANNED LAB RESULTS Routine 01/07/2020 12:01 AM MACHINE TOOL TECHNOLOGY INSTRUCTOR documented in this encounter Results SCANNED LAB RESULTS (01/07/2020 12:01 AM MACHINE TOOL TECHNOLOGY INSTRUCTOR) Specimen Performing Organization Address City/State/Zipcode Phone Number HIM documented in this encounter Insurance Payer Benefit Plan Subscriber ID Effective Dates Phone Address Type / Group HUMANA - HUMANA LAZ [id number] 2019-Lianne collins Adv MANAGED PLS O t O MEDICARE documented as of this encounter Advance Directives Type Date Recorded Patient Stratigrapher Explanati on Advance Directives and Living 06/27/2012 1:28 PM Will Power of Upkeep Worker 06/27/2012 1:28 PM
--- OUTSIDE RECORDS SUMMARY | 2020-03-09 17:45 | XMS REPORT | Summary of Care ---
:1970 Author Organization [facility] Address [address] [place] [address] Care Team Providers Name Role Phone Visit, Nurse Unavailable Unavailable Destiny Soria Primary Care Provider Encounter Details Date Type Department Care Team Description 02/14/2020 Patient Secure [facility] Cardiology- Blaine Vargas [place] MD [address] [place] [address], [address] [place] [address] [place], [place] [phone] [address] Allergies No Known Allergiesdocumented as of this encounter (statuses as of 02/15/2020) Medications Medication Sig Dispensed Refills Start Date [...] pain, right azelastine 137 mcg Use 1 [place] in 30 mL 5 03/01/2019 Active (0.1 %) nasal each nostril 2 sprayIndications: (two) times Allergic rhinitis due daily. Use in to pollen, unspecified each nostril as seasonality directed ipratropium 0.02 % Inhale 500 mcg. 0 Active nebulizer solution fluticasone propionate Use 1 [place] in 1 Bottle 5 05/01/2019 Active 50 [...] ointmentIndications: 3 (three) times Furuncle daily. Insulin [place], Use as directed 300 Each 0 07/05/2019 [...] as of this encounter (statuses as of 02/15/2020) Active Problems Problem Noted Date Unable to walk 06/11/2019 Bilateral hip pain 06/11/2019 Primary osteoarthritis of both knees 06/11/2019 Declining functional status 06/11/2019 Impaired mobility and ADLs 06/11/2019 Pulmonary embolism 11/22/2018 Supratherapeutic INR 09/01/2018 senior care current use of anticoagulant 04/22/2018 Acute respiratory failure with hypoxia and hypercapnia 04/01/2017 Hypoxia 01/05/2017 Hypercarbia 09/28/2016 Abnormal uterine bleeding 09/17/2016 Overview: Added automatically from request for nirali coughlin [id number] Dermoid cyst of ovary 05/17/2016 Abnormal uterine [...] as of this encounter (statuses as of 02/15/2020) Resolved Problems Problem Noted Date Resolved Date [...] (hyperlipidemia) 09/02/2011 05/11/2016 Overview: ICD10 Diagnosis Term Hotel Services Sales Representative Utility Morbid obesity 2011 05/11/2016 Pulmonary embolism 2011 05/11/2016 Diabetes mellitus type 2, uncontrolled, without complication s 2011 12/31/2014 Overview: ICD10 Diagnosis Term Hotel Services Sales Representative Utility HTN (hypertension) 05/14/2016 ADH disorder 05/11/2016 DM (diabetes mellitus) 05/11/2016 documented as of this encounter (statuses as of 02/15/2020) Immunizations Name Administration Dates Next Due Influenza [...] Telephone Encounter - Shaye Sheffield MA - 02/15/2020 4:56 PM CSTPatient has not read mycApplitoolst. Prefers phone calls. Leave msg if needed. She will hold and resume then check on Tuesday. All verbally understood. elephone Encounter - Catie Vargas MD - 02/15/2020 4:52 PM CSTRecommended to restart the Coumadin at her usual dose that she normally takes Repeat INR Tuesday morning. 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
--- OUTSIDE RECORDS SUMMARY | 2020-03-09 17:45 | XMS REPORT ---
:1970 Author Organization [facility] Address [address] [place] [address] Care Team Providers Name Role Phone Frank Unavailable [phone] PROBLEMS Type Condition ICD9-CM [id number] Onset Condition SNOMED Code Notes Code Code Dates Status Problem Morbid (severe) E66.01 Active 209006423 obesity due to excess calories Problem Other chronic G89.29 Active 89732813 pain Problem Type 2 diabetes E11.65 Active 00708072 mellitus with hyperglycemia Problem PCOS (polycystic E28.2 Active 244356258 ovarian syndrome) Problem Mixed E78.2 Active 168892748 hyperlipidemia Problem History of Z86.711 Active 693785286 pulmonary embolism Problem Obstructive sleep G47.33 Active 76017684 apnea (adult) (pediatric) Problem Gout of multiple M10.9 Active 02250582 sites, unspecified cause, unspecified chronicity Problem Metabolic E88.81 Active 741710430 syndrome X Problem 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), predominantly inattentive type Problem Primary M19.012 Active 735241601520088 osteoarthritis, left shoulder Problem Essential I10 Active 76914700 hypertension Problem Primary M19.011 Active 49077594 osteoarthritis, right shoulder Problem Vitamin D E55.9 Active 84409749 deficiency Problem GERD without K21.9 Active 054893018 esophagitis Problem Dependence on Z99.89 Active 688264703 other enabling machines and devices Problem 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 Active 034051489 (current) use of insulin Problem Body mass index Z68.45 Active 535111036 (BMI) 70 or greater, adult ALLERGIES No Known Allergies ENCOUNTERS from 1970 to 2020-02-19 Encounter Location Date Provider Diagnosis [facility] [address] [place] [address] IMMUNIZATIONS Vaccine Route Administration Date Status Bupivicaine [place] Unknown September 13, 2019 Administered Afluria Unknown Jan 02, 2019 Administered Afluria Unknown Jan 08, 2017 Administered Afluria Unknown Feb 06, 2016 Administered Afluria Unknown Feb 20, 2013 Administered Afluria Unknown Apr 12, 2011 Administered Bupivicaine [place] Unknown Oct 08, 2019 Administered Prevnar 13 [...] REASON FOR REFERRAL No Information VITAL SIGNS No information MEDICATIONS Medication SIG (Take, Route, Notes Start Date End Date Status Frequency, Duration) Pen [place] 5/16" 31G X 8 MM as directed for 90 days Active Contour Next Test - as directed In Vitro Active Tramadol HCl 50 MG (Schedule IV Drug) TAKE Active 1 TABLET BY MOUTH EVERY 6 HOURS NEEDED FOR PAIN Oral for 10 MetFORMIN HCl ER 500 MG 1 tablet with evening Active meal Orally Twice a day for 90 days Victoza 18 MG/3ML 1.8 Units Subcutaneous Active Once a day for 90 days Clotrimazole 1 % 1 application Externally Active Twice a day NovoLog 100 UNIT/ML 55 units Subcutaneous Active Two times a day for 90 days Furosemide 40 MG 1 tablet Orally Twice a Active day for 90 days Metoprolol Succinate ER 200 1 tablet Orally Once a Active MG day for 90 days Mupirocin 2 % 1 application Externally Active Three times a day Lisinopril 40 MG 1 tablet Orally Once a Active day for 90 days Allopurinol 300 MG 1 tablet Orally Once a Active day for 90 days Contour Meter finger stick twice a Active day Glycopyrrolate-Formoterol 2 puffs Inhalation Twice Active 9-4.8 MCG/ACT a day Azelastine HCl 137 MCG/SPRAY 1 puff in each nostril Active Nasally Twice a day Nifedipine ER 90 mg 1 tablet Orally Once a Active day for 90 days Triamcinolone Acetonide 0.1 1 application Externally Active % Twice a day Indomethacin 50 MG 1 capsule with food or Active milk Orally Twice a day Amphetamine-Dextroamphetamin (Schedule II Drug) TAKE Active e 30 MG HALF OF A TABLET (15 MG) BY MOUTH ONE TIME Oral for 60 Nystatin 802624 UNIT/GM 1 application Externally Active Twice a day Golytely 236 GM as directed Orally A ctive Clotrimazole-Betamethasone 1 application Externally Active 1-0.05 % Twice a day Ciclopirox 8 % 1 application Externally Active Once a day Pantoprazole Sodium 40 MG 1 tablet Orally Once a Active day Fluticasone Propionate 50 1 spray in each nostril Active MCG/ACT Nasally Once a day Levocetirizine 1 tablet in the evening Active Dihydrochloride 5 MG Orally Once a day Coumadin 5 MG 3 tablets Orally Once a Active day Montelukast Sodium 10 MG 1 tablet Orally Once a Active day Atorvastatin Calcium 40 MG 1 tablet Orally Once a Active day for 90 days PROCEDURES No Information RESULTS No Results REASON FOR VISIT pain in shoulder MEDICAL (GENERAL) HISTORY Type Description Date Medical History Type 2 diabetes mellitus with hyperglyce devante Medical History care home (current) use of insulin Medical History Essential [...] No Information FUNCTIONAL STATUS No Information ASSESSMENTS No Information PLAN OF TREATMENT Medication Medication Name Sig Start Date Stop Date Montelukast Sodium 10 MG 1 tablet Orally Once a day Atorvastatin Calcium 40 MG 1 tablet Orally Once a day for 90 days Coumadin 5 MG 3 tablets Orally Once a day Levocetirizine Dihydrochloride 5 1 tablet in the evening Orally MG Once a day Nifedipine ER 90 mg 1 tablet Orally Once a day for 90 days Furosemide 40 MG 1 tablet Orally Twice a day for 90 days Pantoprazole Sodium 40 MG 1 tablet Orally Once a day MetFORMIN HCl ER 500 MG 1 tablet with evening meal Orally Twice a day for 90 days Metoprolol Succinate ER 200 MG 1 tablet Orally Once a day for 90 days Lisinopril 40 MG 1 tablet Orally Once a day for 90 days Azelastine HCl 137 MCG/SPRAY 1 puff in each nostril Nasally Twice a day Fluticasone Propionate 50 MCG/ACT 1 spray in each nostril Nasally Once a day Allopurinol 300 MG 1 tablet Orally Once a day for 90 days Indomethacin 50 MG 1 capsule with food or milk Orally Twice a day Clotrimazole-Betamethasone 1-0.05 1 application Externally Twice % a day Pen [place] 07/20" 31G X 8 MM as directed for 90 days Victoza 18 MG/3ML 1.8 Units Subcutaneous Once a day for 90 days NovoLog 100 UNIT/ML 55 units Subcutaneous Two times a day for 90 days Triamcinolone Acetonide 0.1 % 1 application Externally Twice a day Mupirocin 2 % 1 application Externally Three times a day Next Appt Details Provider Name:Prasad Marie, 2020-03-11 0 8:00:00 AM, [address] [facility] [address], [address], [place], [address], Insurance Providers Payer Name Payer Address Payer Insured Patient Coverage Cover age End Phone Name Relationship to Start Date [place] e Insured HUMANA [address] [address] [phone] Carolyn Gregory self MEDIC[place] 023 a [phone]
--- OUTSIDE RECORDS SUMMARY | 2020-03-09 17:46 | XMS REPORT ---
:1970 Author Organization [facility] Address [address] [place], [address] [place] [address] Care Team Providers Name Role Phone Joseph Unavailable [phone] PROBLEMS Type Condition ICD9-CM [id number] Onset Condition SNOMED Code Notes Code Code Dates Status Problem Morbid (severe) E66.01 Active 527672504 obesity due to excess calories Problem Other chronic G89.29 Active 05752681 pain Problem Type 2 diabetes E11.65 Active 02840214 mellitus with hyperglycemia Problem PCOS (polycystic E28.2 Active 830777399 ovarian syndrome) Problem Mixed E78.2 Active 043044808 hyperlipidemia Problem History of Z86.711 Active 192454889 pulmonary embolism Problem Obstructive sleep G47.33 Active 21627854 apnea (adult) (pediatric) Problem Gout of multiple M10.9 Active 06507247 sites, unspecified cause, unspecified chronicity Problem Metabolic E88.81 Active 902297931 syndrome X Problem Attention deficit F90.0 Active 80407446 hyperactivity disorder (ADHD), predominantly inattentive type Problem Primary M19.012 Active 379400955621306 osteoarthritis, left shoulder Problem Essential I10 Active 76176354 hypertension Problem Primary M19.011 Active 48832590 osteoarthritis, right shoulder Problem Vitamin D E55.9 Active 57860014 deficiency Problem GERD without K21.9 Active 006664785 esophagitis Problem Dependence on Z99.89 Active 346713491 other enabling machines and devices Problem long-term Z79.4 Active 687989842 (current) use of insulin Problem Body mass index Z68.45 Active 877181168 (BMI) 70 or greater, adult ALLERGIES No Known Allergies ENCOUNTERS from 1970 to 2020-03-06 Encounter Location Date Provider Diagnosis [facility] Bernardo Mittal [address], [place] [address] IMMUNIZATIONS Vaccine Route Administration Date Status Bupivicaine [place] Unknown September 13, 2019 Administered Afluria Unknown Jan 02, 2019 Administered Afluria Unknown Jan 08, 2017 Administered Afluria Unknown Feb 06, 2016 Administered Afluria Unknown Feb 20, 2013 Administered Afluria Unknown Apr 12, 2011 Administered Bupivicaine [place] Unknown Oct 08, 2019 Administered Prevnar 13 -Pneumonia Vaccine Unknown Feb 06, 2016 Ad ministered PNEUMAVAX 23 Unknown Feb 20, 2013 Administered Kenalog (Triamcinolone) Unknown Oct 08, 2019 Administ ereboo Kenalog (Triamcinolone) Unknown September 13, 2019 Administ sj SOCIAL HISTORY Tobacco Use: Social History Observation [...] Start Date End Date Status Frequency, Duration) Tessalon Perles 100 MG 1 capsule as needed Feb, Mar, Active Orally Three times a day for 10 days Golytely 236 GM as directed Orally A ctive Tramadol HCl 50 MG (Schedule IV Drug) Active TAKE 1 TABLET BY MOUTH EVERY 6 HOURS NEEDED FOR PAIN Oral for 10 Triamcinolone Acetonide 1 application Active 0.1 % Externally Twice a day Allopurinol 300 MG 1 tablet Orally Once Active a day for 90 days Pen [place] 16" 31G X 8 as directed for 90 Active MM days Contour Next Test - as directed In Vitro Active Zofran 4 MG 1 tablet as needed Feb, Mar, Ac tive for nausea Orally three times a day for 5 days MetFORMIN HCl ER 500 MG 1 tablet with evening Active meal Orally Twice a day for 90 days Clotrimazole 1 % 1 application Activ e Externally Twice a day NovoLog 100 UNIT/ML 55 units Subcutaneous Active Two times a day for 90 days Furosemide 40 MG 1 tablet Orally Twice Active a day for 90 days Lisinopril 40 MG 1 tablet Orally Once Active a day for 90 days Contour Meter finger stick twice a Active day Glycopyrrolate-Formoterol 2 puffs Inhalation Active 9-4.8 MCG/ACT Twice a day Azelastine HCl 137 1 puff in each Ac tive MCG/SPRAY nostril Nasally Twice a day Nifedipine ER 90 mg 1 tablet Orally Once Active a day for 90 days Mupirocin 2 % 1 application Active Externally Three times a day Indomethacin 50 MG 1 capsule with food Active or milk Orally Twice a day Amphetamine-Dextroampheta (Schedule II Drug) Active mine 30 MG TAKE HALF OF A TABLET (15 MG) BY MOUTH ONE TIME Oral for 60 Victoza 18 MG/3ML 1.8 Units Active Subcutaneous Once a day for 90 days Nystatin 813377 UNIT/GM 1 application Active Externally Twice a day Metoprolol Succinate ER 1 tablet Orally Once Active 200 MG a day for 90 days Clotrimazole-Betamethason 1 application Active e 1-0.05 % Externally Twice a day Ciclopirox 8 % 1 application Active Externally Once a day Pantoprazole Sodium 40 MG 1 tablet Orally Once Active a day Fluticasone Propionate 50 1 spray in each Active MCG/ACT nostril Nasally Once a day Levocetirizine 1 tablet in the Activ e Dihydrochloride 5 MG evening Orally Once a day Coumadin 5 MG 3 tablets Orally Once Active a day Montelukast Sodium 10 MG 1 tablet Orally Once Active a day Atorvastatin Calcium 40 1 tablet Orally Once Active MG a day for 90 days PROCEDURES No Information RESULTS No Results REASON FOR VISIT +Covid, Rx zofran, tessalon perles MEDICAL (GENERAL) HISTORY Type Description Date Medical History Type 2 diabetes mellitus with hyperglyce devante 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 Medical History [...] tablets Orally Once a day Levocetirizine Dihydrochloride 1 tablet in the evening 5 MG Orally Once a day Nifedipine ER 90 mg 1 tablet Orally Once a day for 90 days Triamcinolone Acetonide 0.1 % 1 application Externally Twice a day Pantoprazole Sodium 40 MG 1 tablet Orally Once a day Mupirocin 2 % 1 application Externally Three times a day Furosemide 40 MG 1 tablet Orally Twice a day for 90 days MetFORMIN HCl ER 500 MG 1 tablet with evening meal Orally Twice a day for 90 days Azelastine HCl 137 MCG/SPRAY 1 puff in each nostril Nasally Twice a day Fluticasone Propionate 50 1 spray in each nostril MCG/ACT Nasally Once a day Lisinopril 40 MG 1 tablet Orally Once a day for 90 days Indomethacin 50 MG 1 capsule with food or milk Orally Twice a day Clotrimazole-Betamethasone 1 application Externally 1-0.05 % Twice a day Tessalon Perles 100 MG 1 capsule as needed Orally Feb, Mar, Three times a day for 10 days Allopurinol 300 MG 1 tablet Orally Once a day for 90 days Metoprolol Succinate ER 200 MG 1 tablet Orally Once a day for 90 days Pen [place] 07/20" 31G X 8 MM as directed for 90 days Zofran 4 MG 1 tablet as needed for Feb,Mar, nausea Orally three times a day for 5 days Victoza 18 MG/3ML 1.8 Units Subcutaneous Once a day for 90 days NovoLog 100 UNIT/ML 55 units Subcutaneous Two times a day for 90 days Next Appt Details Provider Name:Prasad Marie, 2020-03-11 0 8:00:00 AM, [address], [place], [address], Insurance Providers Payer Name Payer Address Payer Insured Patient Coverage Cover age End Phone Name Relationship to Start Date [place] e Insured HUMANA [address] [address] [phone] Carolyn Gregory self MEDICARE [place] 023 [id number]
--- OUTSIDE RECORDS SUMMARY | 2020-03-09 17:46 | XMS REPORT | Summary of Care ---
:1970 Author Organization [facility] Address [address] [place] [address] Care Team Providers Name Role Phone Visit, Nurse Unavailable Unavailable Destiny Soria Primary Care Provider Encounter Details Date Type Department Care Team Description 02/13/2020 Orders Only [facility] Doctor Unassigned, No [address] [facility] [place] [address] Allergies No Known Allergiesdocumented as of this encounter (statuses as of 02/21/2020) Medications Medication Sig Dispensed Refills Start Date [...] pain, right azelastine 137 mcg Use 1 [place] in 30 mL 5 03/01/2019 Active (0.1 %) nasal each nostril 2 sprayIndications: (two) times Allergic rhinitis due daily. Use in to pollen, unspecified each nostril as seasonality directed ipratropium 0.02 % Inhale 500 mcg. 0 Active nebulizer solution fluticasone propionate Use 1 [place] in 1 Bottle 5 05/01/2019 Active 50 [...] ointmentIndications: 3 (three) times Furuncle daily. Insulin [place], Use as directed 300 Each 0 07/05/2019 [...] as of this encounter (statuses as of 02/21/2020) Active Problems Problem Noted Date Unable to walk 06/11/2019 Bilateral hip pain 06/11/2019 Primary osteoarthritis of both knees 06/11/2019 Declining functional status 06/11/2019 Impaired mobility and ADLs 06/11/2019 Pulmonary embolism 11/22/2018 Supratherapeutic INR 09/01/2018 custodial current use of anticoagulant 04/22/2018 Acute respiratory failure with hypoxia and hypercapnia 04/01/2017 Hypoxia 01/05/2017 Hypercarbia 09/28/2016 Abnormal uterine bleeding 09/17/2016 Overview: Added automatically from request for nirali coughlin [id number] Dermoid cyst of ovary 05/17/2016 Abnormal uterine [...] as of this encounter (statuses as of 02/21/2020) Resolved Problems Problem Noted Date Resolved Date [...] (hyperlipidemia) 09/02/2011 05/11/2016 Overview: ICD10 Diagnosis Term Brick Shader Utility Morbid obesity 2011 05/11/2016 Pulmonary embolism 2011 05/11/2016 Diabetes mellitus type 2, uncontrolled, without complication s 2011 12/31/2014 Overview: ICD10 Diagnosis Term Brick Shader Utility HTN (hypertension) 05/14/2016 ADH disorder 05/11/2016 DM (diabetes mellitus) 05/11/2016 documented as of this encounter (statuses as of 02/21/2020) Immunizations Name Administration Dates Next Due Influenza [...] Varinder Osorio MD Metabolism [address] [address] [phone] Health Maintenance Due Date Last Done Comments [...] of this encounter Implants Implanted Type Area Information Security Engineer Device Shelf Model / Identifier Expiration Serial / Date Lot Mirena Intrauterine System #[id number] - S0 N/A: Pelvis Bard 03/07/2019 [id number] / Implanted: Qty: 1 on 09/28/2016 by Traci Turpin MD at [facility] 0 / [id number] 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: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, Not i n EPIC documented as of this encounter Procedures Procedure Name Priority Date/Time Associated Diagnosis Comme nts SCANNED LAB RESULTS Routine 02/13/2020 12:01 AM PUNCH OUT CREW MEMBER documented in this encounter Results SCANNED LAB RESULTS (02/13/2020 12:01 AM PUNCH OUT CREW MEMBER) Specimen Performing Organization Address City/State/Zipcode Phone Number HIM documented in this encounter Insurance Payer Benefit Plan Subscriber ID Effective Dates Phone Address Type / Group HUMANA - HUMANA LAZ [id number] 2019-Lianne collins Adv MANAGED PLS O t O MEDICARE documented as of this encounter Advance Directives Type Date Recorded Patient Director Of Revenue Explanati on Advance Directives and Living 06/27/2012 1:28 PM Will Power of Truck Bracer 06/27/2012 1:28 PM
--- OUTSIDE RECORDS SUMMARY | 2020-03-09 17:46 | XMS REPORT | Summary of Care ---
:1970 Author Organization [facility] Address [address] [place] [address] Care Team Providers Name Role Phone Visit, Nurse Unavailable Unavailable Destiny Soria Primary Care Provider Reason for Visit Reason Comments Refill Request Encounter Details Date Type Department Care Team Description 03/04/2020 Refill [facility] Endocrinology- Varinder Brown MD Refill Request [address] [address] [address] [place] [address] [place] [address] [phone] Allergies No Known Allergiesdocumented as of this encounter (statuses as of 03/04/2020) Medications Medication Sig Dispensed Refills Start End Date Status Date ciclopirox (PENLAC) Apply to 6.6 mL 11 Active 8 % solution area(s) at 5 bedtime. Apply to Nails. clotrimazole-betame Apply to 45 g 2 Active thasone (LOTRISONE) area(s) 2 (two) 6 cream times daily. PANTOPRAZOLE 40 mg TAKE 1 TABLET 60 tablet 0 Active EC tablet BY MOUTH TWICE 8 DAILY 30 MINUTES BEFORE BREAKFAST AND DINNER glycopyrrolate-form Inhale. 0 Active oterol (BEVESPI AEROSPHERE) 9-4.8 mcg HFAA clotrimazole 1 % Apply to 1 Tube 0 Act marcella topical area(s) 2 (two) 9 creamIndications: times daily. Cutaneous candidiasis nystatin 100,000 Apply to 90 g 11 Act marcella unit/gram area(s) daily. 9 powderIndications: Intertrigo peg-electrolyte Take as 4000 mL 0 Acti ve soln 236-22.74-6.74 directed before 9 -5.86 gram colonoscopy solutionIndications : Special screening for malignant neoplasms, colon indomethacin 50 mg Take 50 mg by 0 Active capsule mouth 2 (two) times daily with meals. clotrimazole-betame Apply to 45 g 2 Active thasone area(s) 2 (two) 9 creamIndications: times daily. 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 Use in due to pollen, each nostril as unspecified directed seasonality ipratropium 0.02 % Inhale 500 mcg. 0 Active nebulizer solution fluticasone Use 1 [place] in 1 Bottle 5 Act marcella propionate 50 each nostril 0 mcg/actuation nasal daily. sprayIndications: Allergic rhinitis due to pollen, unspecified seasonality levocetirizine 5 mg Take 1 tablet 90 tablet 1 Active tabletIndications: by mouth every 0 Environmental evening. allergies allopurinoL 300 mg Take 1 tablet 90 tablet 3 Active tabletIndications: by mouth daily. 0 Chronic gout due to other secondary cause involving toe of right foot without tophus, Tendonitis of ankle or foot, Pitting edema, Comprehensive diabetic foot examination, type 2 DM, encounter for, Diabetes mellitus type 2, insulin dependent atorvastatin 40 mg TAKE 1 TABLET 90 tablet 3 Active tabletIndications: BY MOUTH EVERY 0 Dyslipidemia NIGHT AT BEDTIME. montelukast 10 mg Take 1 tablet 90 tablet 3 Active tabletIndications: by mouth daily. 0 Allergic rhinitis due to pollen, unspecified seasonality triamcinolone Apply BID to 454 g 1 Act marcella acetonide 0.1 % red rash on 0 ointmentIndications both lower : Venous extremities; do insufficiency of not apply to both lower normal, smooth extremities skin mupirocin 2 % Apply to 22 g 5 Active ointmentIndications area(s) 3 0 : Furuncle (three) times daily. Insulin Bradford, Use as directed 300 Each 0 Active Disposable, (BD to administer 0 INSULIN PEN NEEDLE insulin under UF) 31 gauge x skin TID DX: 07/20" Ndle E11.65 blood sugar Use as directed [...] Syringe 3 Acti ve (OZEMPIC) 0.25 mg under the skin 0 or 0.5 mg(2 mg/1.5 weekly. mL) PnIjIndications: Uncontrolled type 2 diabetes mellitus with complication, with long-term current use of insulin Insulin Asp inject 60 Units 120 mL 3 Ac tive Prt-Insulin Aspart under the skin 0 (NOVOLOG MIX 70-30) 2 (two) times 100 unit/mL (70-30) daily before injectionIndication breakfast and s: Uncontrolled dinner. Dx: type 2 diabetes E11.8 mellitus with complication, with long-term current use of insulin escitalopram Take 10 mg by 0 Act marcella oxalate 10 mg mouth daily. 0 tablet NIFEdipine XL Take 60 mg by 0 Ac tive (PROCARDIA XL) 60 mouth daily. mg 24 hr tablet FUROSEMIDE 40 mg TAKE 1 TABLET 180 tablet 1 Active tabletIndications: EVERY MORNING 0 Deep vein AND EVENING. thrombosis (DVT) of proximal vein of right lower extremity, unspecified chronicity, Chronic anticoagulation, NYE (dyspnea on exertion), Thrombotic disorder, Essential hypertension, benign, Uncontrolled hypertension METOPROLOL TAKE 1 TABLET 90 tablet 1 Activ e SUCCINATE XL 200 mg EVERY DAY 0 24 hr tabletIndications: Essential hypertension, benign WARFARIN 5 mg TAKE 3 TABLETS 270 tablet 0 Active tabletIndications: BY MOUTH EVERY 0 Chronic EVENING. anticoagulation metformin ER 500 mg Take 2 tablets 360 tablet 1 Active 24 hr by mouth 2 0 tabletIndications: (two) times Uncontrolled type 2 daily with diabetes mellitus meals. with complication, with long-term current use of insulin metformin ER 500 mg Take 2 tablets 360 tablet 1 02/05 Discontinued 24 hr by mouth 2 0 20 (Reorder) tabletIndications: (two) times Uncontrolled type 2 daily with diabetes mellitus meals. with complication, with long-term current use of insulin documented as of this encounter (statuses as of 03/04/2020) Active Problems Problem Noted Date Unable to walk 06/11/2019 Bilateral hip pain 06/11/2019 Primary osteoarthritis of both knees 06/11/2019 Declining functional status 06/11/2019 Impaired mobility and ADLs 06/11/2019 Pulmonary embolism 11/22/2018 Supratherapeutic INR 09/01/2018 intermission coordinator current use of anticoagulant 04/22/2018 Acute respiratory failure with hypoxia and hypercapnia 04/01/2017 Hypoxia 01/05/2017 Hypercarbia 09/28/2016 Abnormal uterine bleeding 09/17/2016 Overview: Added automatically from request for nirali coughlin [id number] Dermoid cyst of ovary 05/17/2016 Abnormal uterine [...] as of this encounter (statuses as of 03/04/2020) Resolved Problems Problem Noted Date Resolved Date [...] (hyperlipidemia) 09/02/2011 05/11/2016 Overview: ICD10 Diagnosis Term [employer] Utility Morbid obesity 2011 05/11/2016 Pulmonary embolism 2011 05/11/2016 Diabetes mellitus type 2, uncontrolled, without complication s 2011 12/31/2014 Overview: ICD10 Diagnosis Term [employer] Utility HTN (hypertension) 05/14/2016 ADH disorder 05/11/2016 DM (diabetes mellitus) 05/11/2016 documented as of this encounter (statuses as of 03/04/2020) Immunizations Name Administration Dates Next Due Influenza [...] this encounter Miscellaneous Notes Telephone Encounter - Trice Oakley RN - 03/04/2020 6:57 AM CSTNOV: 03/21/20 VINNY: 11/16/19 Plan:Continue metformin at the present dosage Refill sent. documented in this encounter Plan of Treatment Date Type Specialty Care Team Description 03/21/2020 Office Visit Endocrinology Diabetes & Varinder Osorio MD Metabolism [address] [address] [phone] Health Maintenance Due Date Last Done Comments [...] of this encounter Implants Implanted Type Area Logistic Manager Device Shelf Model / Identifier Expiration Serial / Date Lot Mirena Intrauterine System #[id number] - S0 N/A: Pelvis Bard 03/07/2019 [id number] / Implanted: Qty: 1 on 09/28/2016 by Traci Turpin MD at [facility] 0 / [id number] Description:Mabel is fisher troll line, Not i n EPIC documented as of this encounter Results Not on filedocumented in this encounter Visit Diagnoses Diagnosis Uncontrolled type 2 diabetes mellitus wi th complication, with long-term current use of insulin documented in this encounter Insurance Payer Benefit Plan Subscriber ID Effective Dates Phone Address Type / Group HUMANA - HUMANA GOLD [id number] 2019-en Me collins Adv MANAGED PLS O t O MEDICARE documented as of this encounter Advance Directives Type Date Recorded Patient Cell Assembly Pinner Explanati on Advance Directives and Living 06/27/2012 1:28 PM Will Power of Self Pay Collector 06/27/2012 1:28 PM
--- OUTSIDE RECORDS SUMMARY | 2020-03-09 17:46 | XMS REPORT ---
:1970 Author Organization [facility] Address [address] [place] [address] Care Team Providers Name Role Phone Joseph Unavailable [phone] PROBLEMS Type Condition ICD9-CM WPA27-FT Onset Condition SNOMED Code Notes Code Code Dates Status Problem Morbid (severe) E66.01 Active 440908041 obesity due to excess calories Problem Other chronic G89.29 Active 72565216 pain Problem Type 2 diabetes E11.65 Active 20100869 mellitus with hyperglycemia Problem PCOS (polycystic E28.2 Active 863263549 ovarian syndrome) Problem Mixed E78.2 Active 550806192 hyperlipidemia Problem History of Z86.711 Active 633440149 pulmonary embolism Problem Obstructive sleep G47.33 Active 60117248 apnea (adult) (pediatric) Problem Gout of multiple M10.9 Active 87560627 sites, unspecified cause, unspecified chronicity Problem Metabolic E88.81 Active 426145910 syndrome X Problem 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), predominantly inattentive type Problem Primary M19.012 Active 009548085380441 osteoarthritis, left shoulder Problem Essential I10 Active 01489529 hypertension Problem Primary M19.011 Active 82685773 osteoarthritis, right shoulder Problem Vitamin D E55.9 Active 56530991 deficiency Problem GERD without K21.9 Active 512427328 esophagitis Problem Dependence on Z99.89 Active 419321640 other enabling machines and devices Problem 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 Active 907844486 (current) use of insulin Problem Body mass index Z68.45 Active 674794011 (BMI) 70 or greater, adult ALLERGIES No Known Allergies ENCOUNTERS from 1970 to 2020-02-26 Encounter Location Date Provider Diagnosis [facility] [address], [place] [address] IMMUNIZATIONS Vaccine Route Administration Date Status Bupivicaine [place] Unknown September 13, 2019 Administered Afluria Unknown Jan 02, 2019 Administered Afluria Unknown Jan 08, 2017 Administered Afluria Unknown Feb 06, 2016 Administered Afluria Unknown Feb 20, 2013 Administered Afluria Unknown Apr 12, 2011 Administered Bupivicaine [place] Unknown Oct 08, 2019 Administered Prevnar 13 [...] Date End Date Status Frequency, Duration) Pen [place] 5/16" 31G X 8 as directed for 90 [...] 90 days Victoza 18 MG/3ML 1.8 Units Active Subcutaneous Once a day for 90 days Clotrimazole 1 % 1 application Activ e Externally Twice a day NovoLog 100 UNIT/ML 55 units Subcutaneous Active Two times a day for 90 days Furosemide 40 MG 1 tablet Orally Twice Active a day for 90 days Metoprolol Succinate ER 1 tablet Orally Once Active 200 MG a day for 90 days Mupirocin 2 % 1 application Active Externally Three times a day Lisinopril 40 MG 1 tablet Orally Once Active a day for 90 days Allopurinol 300 [...] Once Active a day for 90 days Triamcinolone Acetonide 1 application Active 0.1 % Externally Twice a day Indomethacin 50 MG 1 capsule with food Active or milk Orally Twice a day Amphetamine-Dextroampheta (Schedule II Drug) Active mine 30 MG TAKE HALF OF A TABLET (15 MG) BY MOUTH ONE TIME Oral for 60 Nystatin 397000 UNIT/GM 1 application Active Externally Twice a day Golytely 236 GM as directed Orally A ctive Diflucan 150 MG 1 tablet Orally once Feb, Feb, Active for 1 day Clotrimazole-Betamethason 1 application Active e 1-0.05 % [...] Information RESULTS No Results REASON FOR VISIT yeast MEDICAL (GENERAL) HISTORY Type Description Date Medical History Type 2 diabetes mellitus with hyperglyce devante Medical History jail (current) use of insulin Medical History Essential [...] each nostril MCG/ACT Nasally Once a day Allopurinol 300 MG 1 tablet Orally Once a day for 90 days Indomethacin 50 MG 1 capsule with food or milk Orally Twice a day Clotrimazole-Betamethasone 1 application Externally 1-0.05 % Twice a day Pen [place] 07/20" 31G X 8 MM as directed for 90 days Diflucan 150 MG 1 tablet Orally once for Feb,2019 day Victoza 18 MG/3ML 1.8 Units Subcutaneous Once a day for 90 days NovoLog 100 UNIT/ML 55 units Subcutaneous Two times a day for 90 days Triamcinolone Acetonide 0.1 % 1 application Externally Twice a day Mupirocin 2 % 1 application Externally Three times a day Next Appt Details Provider Name:Prasad Marie, 2020-03-11 0 8:00:00 AM, [address], [place], [address], Insurance Providers Payer Name Payer Address Payer Insured Patient Coverage Cover age End Phone Name Relationship to Start Date [place] e Insured HUMANA [address] [address] [phone] Carolyn Gregory self MEDIC[place]23 a [id number]
--- NOTE | 2020-03-09 19:04 | RAD REPORT ---
EXAM DESCRIPTION: RAD - Chest Single View - 03/09/2020 6:38 pm CLINICAL HISTORY: Cough;Congestion Chest pain. COMPARISON: Chest Single View dated 08/02/2018; CHEST SINGLE VIEW dated 02/02/2013; CHEST SINGLE VIEW dated 06/15/2009; CHEST PA AND LAT 2 VIEW dated 02/13/2009 FINDINGS: Portable technique limits examination quality. Mild bilateral pulmonary opacities are noted probably representing bronchitis or viral pneumonia. The heart is mildly prominent in size.
[2020-03-09 19:05] LABS: Absolute Lymphocytes (CBC) 2.8 K/uL (0.7-4.9); Basophils % 1.1 % (0-1.3); Hematocrit 42.8 % (36.0-45.0); Lymphocytes % 30.7 % (15.3-44.8); RBC Red Blood Cell Count 5.01 M/uL (3.86-4.86)
--- NOTE | 2020-03-09 19:12 | ER ---
Nurse's Notes [facility] Name: Radha Gregory Age: 49 yrs Sex: Female : 1970 Arrival Date: 03/09/2020 Time: 17:38 Bed 6 Private MD: Diagnosis: Other pneumonia, unspecified organism-bilateral pneumonia;Hypoxemia;Type 1 diabetes mellitus;Obesity, unspecified;SARS-associated coronavirus as the cause of diseases classified elsewhere-Covid 19 positive 03/04 Presentation: 03/09 17:56 Chief complaint: Patient states: Diagnosed with COVID on 03-04. Pt reports that her doctor told her that if her oxygen drops below 92% to come to ED. Pt also reports she has been unable to sleep. Coronavirus screen: Client presents with at least one sign or symptom that may indicate coronavirus-19. Standard/surgical mask placed on the client. Provider contacted for isolation considerations. Ebola Screen: Patient denies exposure to infectious person. Patient denies travel to an Ebola-affected area in the 21 days before illness onset. Initial Sepsis Screen: Does the patient meet any 2 criteria? RR > 20 per min. HR > 90 bpm. Does the patient have a suspected source of infection? No. Patient's initial sepsis screen is negative. Risk Assessment: Do you want to hurt yourself or someone else? Patient reports no desire to harm self or others. Onset of symptoms was February 28, 2020. 17:56 Acuity: RAQUEL 2 ss 17:56 Method Of Arrival: Wheelchair ss TRANSFER ENGINEER: 17:56 LMP N/A - Post-menopause ss Historical: - Allergies: 17:56 No Known Allergies; ss - PMHx: 17:56 Diabetes - IDDM; DVT; Hypertension; PE; ss - Immunization history:: Adult Immunizations up to date. - Social history:: Smoking status: Patient denies any tobacco usage or history of. - Family history:: not pertinent. Screenin:09 Abuse screen: Denies threats or abuse. Denies injuries from another. Nutritional ph screening: No deficits noted. Tuberculosis screening: No symptoms or risk factors identified. Fall Risk None identified. Assessment: 18:30 General: Appears in no apparent distress. comfortable, obese, Behavior is calm, ph cooperative, appropriate for age, Reports chills for fever for > 3 days. Pain: Complains of pain in "body aches". Neuro: Level of Consciousness is awake, alert, obeys commands, Oriented to person, place, time, situation, Reports dizziness, weakness. Cardiovascular: Capillary refill < 3 seconds in bilateral fingers Patient's skin is warm and dry. Respiratory: Reports shortness of breath on exertion cough that is productive, Airway is patent Respiratory effort is even, Respiratory pattern is tachypnea. GI: No signs and/or symptoms were reported involving the gastrointestinal system. Derm: Skin is intact, is healthy with good turgor, Skin is pink, warm \\T\\ dry. Musculoskeletal: Circulation, motion, and sensation intact. Range of motion: intact in all extremities. 20:00 Reassessment: Patient appears in no apparent distress at this time. Dr Atkins came mg2 spoke to the patient about the plan of keeping her in the hospital. Vital Signs: 17:56 BP 164 / 99; Pulse 99; Resp 24; Temp 98.9(TE); Pulse Ox 90% ; Weight 192.78 kg; Height ss 5 ft. 4 in. (162.56 cm); Pain 10/10; 19:09 BP 143 / 90; Pulse 91; Resp 24; Pulse Ox 100% on 2 lpm NC; ph 17:56 Body Mass Index 72.95 (192.78 kg, 162.56 cm) ED Course: 17:38 Patient arrived in ED. rg4 17:56 Arm band placed on right wrist. ss 17:59 Triage completed. ss 18:02 Germain Jensen MD is Attending Physician. luzmaria 18:07 Mely Sutton, NICK is Primary Nurse. ph 18:38 XRAY Chest (1 view) In Process Unspecified. EDMS 19:07 Silverio Atkins MD is Hospitalizing Provider. ulzmaria 19:08 Inserted saline lock: 22 gauge in right antecubital area, using aseptic technique. ph Blood collected. 19:17 Patient has correct armband on for positive identification. Bed in low position. Call ph light in reach. Side rails up X2. personnel monitor on. Pulse ox on. NIBP on. Noise minimized. Warm blanket given. 19:30 IV discontinued, intact. mg2 19:50 Inserted saline lock: 22 gauge in left forearm, using aseptic technique. mg2 19:55 No provider procedures requiring assistance completed. mg2 Administered Medications: 18:51 CANCELLED (Duplicate Order): Aspirin Chewable Tablet 162 mg PO once luzmaria 19:52 Drug: NS 0.9% 1000 ml Route: IV; Rate: 125 ml/hr; Site: left forearm; mg2 21:00 Follow up: Response: No adverse reaction; IV Status: Order to discontinue infusion rr5 19:52 Drug: Coumadin 10 mg Route: PO; mg2 23:12 Follow up: Response: No adverse reaction rr5 19:52 Drug: Aspirin 81 mg Route: PO; mg2 21:00 Follow up: Response: No adverse reaction rr5 19:53 Drug: Pepcid 40 mg Route: IVP; Site: left forearm; rr5 20:00 Follow up: Response: No adverse reaction mg2 19:53 Drug: Decadron - Dexamethasone 10 mg Route: IVP; Site: left forearm; mg2 20:50 Follow up: Response: No adverse reaction rr5 19:53 Drug: Rocephin 1 grams Route: IV; Rate: per protocol; Site: left forearm; mg2 20:30 Follow up: Response: No adverse reaction; IV Status: Completed infusion; IV Intake: [id number] 19:53 Drug: Zithromax 500 mg Route: IVPB; Infused Over: 1 hrs; Site: left forearm; mg2 21:00 Follow up: Response: No adverse reaction; IV Status: Completed infusion; IV Intake: rr5 250ml 23:01 Drug: Albuterol HFA Inhaler 4 puffs Route: Inhalation; rr5 Intake: 20:30 IV: 10ml; Total: 10ml. rr5 21:00 IV: 250ml; Total: 260ml. rr5 Outcome: 19:11 Decision to Hospitalize by Provider. luzmaria 20:12 Admitted to mg2 20:12 Admitted to ER Hold. Please see [facility] for further documentation. 20:12 Condition: stable 20:12 Instructed on the need for admit. 03/10 12:30 Admitted to Med/surg accompanied by tech, via wheelchair, room 410, with oxygen, Report bp called to STACI ROMERO 12:57 Patient left the ED. bp Signatures: Dispatcher [employer] EDMS Germain Jensen MD MD cha Smirch, Shelby, RN RN Mely Sutton RN RN Sheela Alicea rg4 Rashad Torres RN RN bp Terry Dunlap RN RN mg2 Ngo, Ag, RN RN rr5
--- NOTE | 2020-03-09 19:12 | EDPHYS ---
Physician Documentation [facility] Name: Radha Gregory Age: 49 yrs Sex: Female : 1970 Arrival Date: 03/09/2020 Time: 17:38 Bed 6 Private MD: DARIELA Physician Germain Jensen HPI: 03/09 18:52 This 49 yrs old Black Female presents to ER via Wheelchair with complaints of Low O2 luzmaria Covid+. 18:52 The patient has shortness of breath at rest, with light activity. Onset: The luzmaria symptoms/episode began/occurred 5 day(s) ago. Duration: The symptoms are continuous, and are steadily getting worse. The patient's shortness of breath is aggravated by coughing, supine position, walking, is alleviated by elevating head, application of supplemental oxygen. The patient or guardian reports cough, that is intermittent, difficulty breathing, flu symptoms, arthralgias, low-grade fever, myalgias. Modifying factors: The symptoms are alleviated by elevating head, remaining still, the symptoms are aggravated by activity, lying flat, talking. Associated signs and symptoms: Pertinent positives: non-productive cough, fever. Severity of symptoms: At their worst the symptoms were mild moderate in the emergency department the symptoms are unchanged. Associated signs and symptoms: Pertinent positives: fever. 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 - Social history:: Smoking status: Patient denies any tobacco usage or history of. - Family history:: not pertinent. ROS: 18:52 Constitutional: Negative for fever, chills, and weight loss, Eyes: Negative for injury, luzmaria pain, redness, and discharge, ENT: Negative for injury, pain, and discharge, Neck: Negative for injury, pain, and swelling, Cardiovascular: Negative for chest pain, palpitations, and edema, Abdomen/GI: Negative for abdominal pain, nausea, vomiting, diarrhea, and constipation, Back: Negative for injury and pain, : Negative for injury, bleeding, discharge, and swelling, MS/Extremity: Negative for injury and deformity, Skin: Negative for injury, rash, and discoloration, Neuro: Negative for headache, weakness, numbness, tingling, and seizure, Psych: Negative for depression, anxiety, suicide ideation, homicidal ideation, and hallucinations, Allergy/Immunology: Negative for hives, rash, and allergies, Endocrine: Negative for neck swelling, polydipsia, polyuria, polyphagia, and marked weight changes, Hematologic/Lymphatic: Negative for swollen nodes, abnormal bleeding, and unusual bruising. 18:52 Respiratory: Positive for cough, dyspnea on exertion, shortness of breath, at rest. Exam: 18:52 Constitutional: This is a well developed, well nourished patient who is awake, alert, luzmaria and in no acute distress. Head/Face: Normocephalic, atraumatic. Eyes: Pupils equal round and reactive to light, extra-ocular motions intact. Lids and lashes normal. Conjunctiva and sclera are non-icteric and not injected. Cornea within normal limits. Periorbital areas with no swelling, redness, or edema. ENT: Nares patent. No nasal discharge, no septal abnormalities noted. Tympanic membranes are normal and external auditory canals are clear. Oropharynx with no redness, swelling, or masses, exudates, or evidence of obstruction, uvula midline. Mucous membranes moist. Neck: Trachea midline, no thyromegaly or masses palpated, and no cervical lymphadenopathy. Supple, full range of motion without nuchal rigidity, or vertebral point tenderness. No Meningismus. Chest/axilla: Normal chest wall appearance and motion. Nontender with no deformity. No lesions are appreciated. Cardiovascular: Regular rate and rhythm with a normal S1 and S2. No gallops, murmurs, or rubs. Normal PMI, no JVD. No pulse deficits. Abdomen/GI: Soft, non-tender, with normal bowel sounds. No distension or tympany. No guarding or rebound. No evidence of tenderness throughout. Back: No spinal tenderness. No costovertebral tenderness. Full range of motion. Skin: Warm, dry with normal turgor. Normal color with no rashes, no lesions, and no evidence of cellulitis. MS/ Extremity: Pulses equal, no cyanosis. Neurovascular intact. Full, normal range of motion. Neuro: Awake and alert, GCS 15, oriented to person, place, time, and situation. Cranial nerves II-XII grossly intact. Motor strength 5/5 in all extremities. Sensory grossly intact. Cerebellar exam normal. Normal gait. Psych: Awake, alert, with orientation to person, place and time. Behavior, mood, and affect are within normal limits. 18:52 Respiratory: mild respiratory distress is noted, Respirations: normal, Breath sounds: bronchial sounds, that are mild, are scattered, decreased breath sounds, that are moderate, rhonchi, that are mild, are scattered, stridor, is not appreciated, Respiratory rate: 24, 90% on room air, 97% on 2 liters Vital Signs: 17:56 BP 164 / 99; Pulse 99; Resp 24; Temp 98.9(TE); Pulse Ox 90% ; Weight 192.78 kg; Height ss 5 ft. 4 in. (162.56 cm); Pain 10/10; 19:09 BP 143 / 90; Pulse 91; Resp 24; Pulse Ox 100% on 2 lpm NC; ph 17:56 Body Mass Index 72.95 (192.78 kg, 162.56 cm) ss MDM: 18:02 Patient medically screened. luzmaria 19:04 Differential diagnosis: asthma, CHF exacerbation, Chronic Obstructive Pulmonary Disease luzmaria bronchitis, flu, URI, pneumonia, Pneumothorax pulmonary edema, Pulmonary Embolism reactive airway disease, Sepsis Unstable Angina. Antibiotic administration: Rocephin and Zithromax given. The patient's Wells Deep Vein Thrombosis Score was calculated as follows: Suspected DVT (3 Pts) Previous DVT/PE (1.5 Pts) Total Score: 3-6 Pts - Mod Risk. The patient's pulmonary embolism risk score was calculated as follows: the patient has a history of a previous deep vein thrombosis or pulmonary embolism (1.5 Pts) Total Score: 0-2 points. This patient was found to be at low risk for a pulmonary embolism by using the Well's assessment criteria. Immunization status: Influenza vaccine: Data reviewed: vital signs, nurses notes, lab test result(s), EKG, radiologic studies, plain films. Data interpreted: monitor and storage bin tender: rate is 99 beats/min, rhythm is regular. Test interpretation: by ED physician or midlevel provider: ECG, plain radiologic studies. Counseling: I had a detailed discussion with the patient and/or guardian regarding: the historical points, exam findings, and any diagnostic results supporting the discharge/admit diagnosis, lab results, radiology results, the need for further work-up and treatment in the hospital. 03/09 18:07 Order name: Basic Metabolic Panel; Complete Time: 20:25 luzmaria 03/09 20:25 Interpretation: Normal except: NA 134; CL 94; CO2 37; GLUC 250; BUN 4; GFR 71. cp 03/09 18:07 Order name: CBC with Diff; Complete Time: 19:30 luzmaria 03/09 18:07 Order name: LFT's; Complete Time: 20:25 luzmaria 03/09 18:07 Order name: Magnesium; Complete Time: 20:25 luzmaria 03/09 18:07 Order name: NT PRO-BNP; Complete Time: 20:25 luzmaria 03/09 18:07 Order name: PT-INR; Complete Time: 19:30 luzmaria 03/09 18:07 Order name: Troponin (emerg Dept Use Only); Complete Time: 20:25 luzmaria 03/09 18:07 Order name: Blood Culture Adult (2) luzmaria 03/09 18:07 Order name: CRP; Complete Time: 20:25 luzmaria 03/09 18:07 Order name: Ferritin; Complete Time: 20:25 luzmaria 03/09 18:07 Order name: D-Dimer; Complete Time: 19:30 luzmaria 03/09 19:49 Order name: C-Reactive Protein EDMS 03/09 19:49 Order name: C-Reactive Protein EDMS 03/09 19:49 Order name: C-Reactive Protein EDMS 03/09 18:07 Order name: XRAY Chest (1 view); Complete Time: 19:30 luzmaria 03/09 19:49 Order name: CBC with Automated Diff EDMS 03/09 19:49 Order name: CBC with Automated Diff EDMS 03/09 19:49 Order name: Comprehensive Metabolic Panel EDMS 03/09 19:49 Order name: Comprehensive Metabolic Panel EDMS 03/09 19:49 Order name: Ferritin EDMS 03/09 19:49 Order name: Ferritin EDMS 03/09 19:49 Order name: Ferritin EDMS 03/09 19:49 Order name: Protime (+INR) EDMS 03/09 19:49 Order name: Protime (+INR) EDMS 03/10 08:12 Order name: Glucose, Ancillary Testing EDMS 03/10 12:17 Order name: Glucose, Ancillary Testing EDMS 03/09 18:07 Order name: EKG; Complete Time: 18:07 luzmaria 03/09 18:07 Order name: Cardiac monitoring; Complete Time: 19:55 [facility] 03/09 18:07 Order name: EKG - Nurse/Tech; Complete Time: 19:10 [facility] 03/09 18:07 Order name: IV Saline Lock; Complete Time: 19:10 [facility] 03/09 18:07 Order name: Labs collected and sent; Complete Time: 19:10 [facility] 03/09 18:07 Order name: O2 Per Protocol; Complete Time: 19:10 [facility] 03/09 18:07 Order name: O2 Sat Monitoring; Complete Time: 19:10 [facility] 03/09 19:48 Order name: CONS Pharmacy Consult EDMS 03/09 19:49 Order name: Regular EDMS Administered Medications: 18:51 CANCELLED (Duplicate Order): Aspirin Chewable Tablet 162 mg PO once [facility] 19:52 Drug: NS 0.9% 1000 ml Route: IV; Rate: 125 ml/hr; Site: left forearm; mg2 21:00 Follow up: Response: No adverse reaction; IV Status: Order to discontinue infusion rr5 19:52 Drug: Coumadin 10 mg Route: PO; mg2 23:12 Follow up: Response: No adverse reaction rr5 19:52 Drug: Aspirin 81 mg Route: PO; mg2 21:00 Follow up: Response: No adverse reaction rr5 19:53 Drug: Pepcid 40 mg Route: IVP; Site: left forearm; rr5 20:00 Follow up: Response: No adverse reaction mg2 19:53 Drug: Decadron - Dexamethasone 10 mg Route: IVP; Site: left forearm; mg2 20:50 Follow up: Response: No adverse reaction rr5 19:53 Drug: Rocephin 1 grams Route: IV; Rate: per protocol; Site: left forearm; mg2 20:30 Follow up: Response: No adverse reaction; IV Status: Completed infusion; IV Intake: [id number] 19:53 Drug: Zithromax 500 mg Route: IVPB; Infused Over: 1 hrs; Site: left forearm; mg2 21:00 Follow up: Response: No adverse reaction; IV Status: Completed infusion; IV Intake: rr5 250ml 23:01 Drug: Albuterol HFA Inhaler 4 puffs Route: Inhalation; rr5 Disposition: 03/09/20 19:11 Hospitalization ordered by Silverio Atkins for Inpatient Admission. Preliminary diagnosis are Other pneumonia, unspecified organism - bilateral pneumonia, Hypoxemia, Type 1 diabetes mellitus, Obesity, unspecified, SARS-associated coronavirus as the cause of diseases classified elsewhere - Covid 19 positive 03/04. - Bed requested for Telemetry/MedSurg (Inpatient). - Status is Inpatient Admission. bp - Condition is Fair. - Problem is new. - Symptoms have improved. Signatures: Dispatcher [employer] EDDora Washington RN RN dw Anderson, Corey, MD MD cha Smirch, Shelby, RN RN Germain Grijalva PA PA cp Peltier, Brian, RN RN bp Terry Dunlap RN RN [facility] Ag Ngo RN RN rr5 Corrections: (The following items were deleted from the chart) 18:51 18:07 Aspirin Chewable Tablet 162 mg PO once ordered. [facility] 20:12 19:11 Hospitalization Ordered by Silverio Atkins MD for Inpatient Admission. Preliminary diagnosis is Other pneumonia, unspecified organism - bilateral pneumonia; Hypoxemia; Type 1 diabetes mellitus; Obesity, unspecified; SARS-associated coronavirus as the cause of diseases classified elsewhere - Covid 19 positive 03/04. Bed requested for Telemetry/MedSurg (Inpatient). Status is Inpatient Admission. Condition is Fair. Problem is new. Symptoms have improved. [facility] 03/10 11:34 03 20:12 03/09/2020 19:11 Hospitalization Ordered by Silverio Atkins MD for dw Inpatient Admission. Preliminary diagnosis is Other pneumonia, unspecified organism - bilateral pneumonia; Hypoxemia; Type 1 diabetes mellitus; Obesity, unspecified; SARS-associated coronavirus as the cause of diseases classified elsewhere - Covid 19 positive 03/04. Bed requested for [facility] HOLD. Status is Inpatient Admission. Condition is Fair. Problem is new. Symptoms have improved. 03/10 12:57 11:34 03/09/2020 19:11 Hospitalization Ordered by Silverio Atkins MD for Inpatient bp Admission. Preliminary diagnosis is Other pneumonia, unspecified organism - bilateral pneumonia; Hypoxemia; Type 1 diabetes mellitus; Obesity, unspecified; SARS-associated coronavirus as the cause of diseases classified elsewhere - Covid 19 positive 03/04. Bed requested for Telemetry/MedSurg (Inpatient). Status is Inpatient Admission. Condition is Fair. Problem is new. Symptoms have improved. dw
[2020-03-09 19:19] LABS: Protime INR 2.33
[2020-03-09] MEDS ORDERED: NA CHLORIDE 0.9% 1,000 ML ONE (19:34)
[2020-03-09] MEDS ORDERED: CEFTRIAXONE/SWI 1gm 1 GM/10 ML SYR ONE (19:34)
[2020-03-09] MEDS ORDERED: ASPIRIN EC 81 MG TAB PO ONE ×2 (19:34→20:06)
[2020-03-09] MEDS ORDERED: WARFARIN SODIUM 5 MG TAB ONE (19:34)
[2020-03-09] MEDS ORDERED: dexAMETHasone 10 MG/ML VIAL ONE (19:34)
[2020-03-09] MEDS ORDERED: FAMOTIDINE 20 MG/2 ML VIAL IV ONE (19:34)
[2020-03-09] MEDS ORDERED: NA CHLORIDE 0.9% 250 ML ONE (19:34)
[2020-03-09] MEDS ORDERED: AZITHROMYCIN 500 MG INJ IVPB ONE (19:35)
--- NOTE | 2020-03-09 19:49 | P.HP ---
Certification for Inpatient Patient admitted to: Observation With expected LOS: <2 Midnights Patient will require the following post-hospital care: None Practitioner: I am a practitioner with admitting privileges, knowledge of patient current condition, hospital course, and medical plan of care. Services: Services provided to patient in accordance with Admission requirements found in Title 42 Section 412.3 of the Code of Federal Regulations Patient History Date of Service: 03/09/20 Reason for admission: Zamora virus pneumonia History of Present Illness: Patient is 49 years of age she was diagnosed positive a week ago with zamora virus infection developed progressive shortness of breath as morbidly obese history of DVTs P is compliant with her medication as currently on 2 L on nasal cannula oxygen saturation satisfactory - Past Medical/Surgical History -: History of DVT and PE -: Diabetes -: Hypertension Review of Systems 10-point ROS is otherwise unremarkable General: Weakness Respiratory: Cough, Shortness of Breath Physical Examination - Vital Signs Blood Pressure: 143/90 Pulse: 91 Respirations: 24 Pulse Ox (%): 100 - Physical Exam General: Alert, Mild distress Respiratory: Clear to auscultation bilaterally, Diminished Cardiovascular: Regular rate/rhythm, Normal S1 S2, Edema Gastrointestinal: Normal bowel sounds - Studies Laboratory Data (last 24 hrs) 03/09/20 18:52: PT 27.0 H, INR 2.33 03/09/20 18:52: WBC 9.0, Hgb 13.9, Hct 42.8, Plt Count 275 Assessment and Plan - Problems (Diagnosis) (1) Pneumonia due to Coronavirus disease 2018 Current Visit: Yes Status: Acute Plan: Patient is 49 years of age admitted with zamora virus pneumonia was complaining of shortness of breath chest x-ray unable to interpret due to morbid obesity patient has a history of DVT PE she is compliant with her Coumadin morbidly obese resume BiPAP saturation satisfactory he evaluated room-air pulse ox tomorrow possible discharge chemistries still pending PATIENT WAS GIVEN ANTIBIOTICS IN HER DOSE OF COUMADIN IN THE EMERGENCY ROOM INCLUDING DECADRON 10 MG coal medications reconciliation is pending resume BiPAP his severe sleep a pnea - Advance Directives Does patient have a Living Will: No Does patient have a Durable POA for Healthcare: No
[2020-03-09] MEDS ORDERED: FUROSEMIDE 20 MG/ 2ML VIAL IV ONE (19:53)
[2020-03-09 20:12] LABS: ALT/SGPT 20 U/L (12-78); AST/SGOT 49 U/L (15-37); Alkaline Phosphatase 61 U/L (45-117); BUN Blood Urea Nitrogen 4 mg/dL (7-18); Bicarbonate 37 mmol/L (21-32); Bilirubin Direct 0.3 mg/dL (0-0.2); Bilirubin Total 0.8 mg/dL (0.2-1.0); Ferritin 471.1 ng/mL (8-388); Glucose Level 250 mg/dL (74-106); Magnesium 2.1 mg/dL (1.8-2.4); NT PRO-BNP 105 pg/mL (<125); Potassium 3.7 mmol/L (3.5-5.1); Protein, Total 7.5 g/dL (6.4-8.2); Sodium Level 134 mmol/L (136-145); Troponin (Emerg Dept Use Only) < 0.02 ng/mL (0.0-0.045)
[2020-03-09] MEDS ORDERED: ACETAMINOPHEN 500 MG TAB PO PRN (20:53)
[2020-03-09] MEDS: INSULIN -REGULAR HUMAN 50 UNIT/0.5 ML ML SQ SCH (21:00)
[2020-03-09] MEDS ORDERED: ALBUTEROL INHALER 60 PUFF/8 GM IH ONE (23:11)
[2020-03-09] MEDS ORDERED: KETOROLAC 30 MG/ML INJ IV ONE (23:15)
[2020-03-09] MEDS ORDERED: HYDROCODONE/APAP 5/325 MG TAB PO PRN (23:15)
[2020-03-09] MEDS ORDERED: KETOROLAC 30 MG/ML INJ ONE (23:20)
[2020-03-09] MEDS ORDERED: HYDROCODONE/APAP 5/325 MG TAB ONE (23:21)
[2020-03-10 03:39] LABS: Protime INR 2.63
[2020-03-10 03:41] LABS: Absolute Lymphocytes (CBC) 1.3 K/uL (0.7-4.9); Basophils % 0.6 % (0-1.3); Hematocrit 42.4 % (36.0-45.0); MPV 9.4 fL (7.6-11.3); RBC Red Blood Cell Count 4.98 M/uL (3.86-4.86)
[2020-03-10 04:11] LABS: Albumin 2.9 g/dL (3.4-5.0); Bilirubin Total 0.8 mg/dL (0.2-1.0); C-Reactive Protein 41.7 mg/L (<3.00); Ferritin 439.4 ng/mL (8-388); Potassium 4.2 mmol/L (3.5-5.1); Protein, Total 7.4 g/dL (6.4-8.2)
[2020-03-10] MEDS: METHYLPREDNISOLONE 125 MG INJ IV SCH ×3 (06:00→21:05)
[2020-03-10] MEDS ORDERED: TRAMADOL HCL 50 MG TAB PO PRN (06:54)
[2020-03-10] MEDS: INSULIN -REGULAR HUMAN 50 UNIT/0.5 ML ML SQ SCH ×4 (07:30→21:27)
[2020-03-10] MEDS ORDERED: METHYLPREDNISOLONE 125 MG INJ ONE (08:12)
[2020-03-10] MEDS ORDERED: INSULIN -REGULAR HUMAN 50 UNIT/0.5 ML ML ONE (08:44)
[2020-03-10] MEDS: ZINC SULFATE 220 MG CAP PO SCH (09:00)
[2020-03-10] MEDS: VITAMIN D 1000 UNIT TAB PO SCH (09:00)
[2020-03-10] MEDS: ASCORBIC ACID 500 MG TABLET PO SCH ×3 (09:00→21:04)
[2020-03-10] MEDS ORDERED: PNEUMOCOCCAL VACCINE 0.5 ML IMVAC ONE (10:00)
[2020-03-10] MEDS ORDERED: INFLUENZA VACCINE (for 3y+) 0.5 ML DOSE IMVAC ONE (10:00)
--- NOTE | 2020-03-10 10:29 | EKG ---
Test Date: 2020-03-09 Test Time: 19:12:42 Pension Administrator: MALLORY MEASUREMENT RESULTS: Intervals: Rate: 96 NM: 146 QRSD: 86 QT: 382 QTc: 482 [place]: P: 59 NM: 146 QRS: -16 T: 52 INTERPRETIVE STATEMENTS: Normal sinus rhythm Prolonged QT Abnormal ECG Compared to ECG 08/02/2018 08:58:32 Prolonged QT interval now present Myocardial infarct finding no longer present Electronically Signed On 03-10-20 10:27:51 BROADCAST PROGRAM DIRECTOR by Misael Gotti
[2020-03-10] MEDS ORDERED: VITAMIN D 1000 UNIT TAB ONE (12:10)
[2020-03-10] MEDS ORDERED: METHYLPREDNISOLONE 40 MG INJ ONE (12:11)
[2020-03-10] MEDS ORDERED: ZINC SULFATE 220 MG CAP ONE (12:11)
[2020-03-10] MEDS ORDERED: ASCORBIC ACID 500 MG TABLET ONE (12:11)
[2020-03-10] MEDS: HYDROCODONE/APAP 7.5/325 MG TAB PO PRN (15:30)
[2020-03-10] MEDS ORDERED: GLUCAGON 1 MG/VIAL IM PRN (16:47)
--- NOTE | 2020-03-10 16:53 | P.PN ---
Subjective Date of Service: 03/10/20 Chief Complaint: Zamora virus pneumonia Subjective: Improving Physical Examination - Vital Signs Temperature: 97.0 F Blood Pressure: 174/86 Pulse: 77 Respirations: 19 Pulse Ox (%): 94 - Physical Exam General: Alert HEENT: Atraumatic Neck: Supple Respiratory: Other (on oxygen) Cardiovascular: Normal pulses Neurological: Normal speech, Normal strength at 5/5 x4 extr, Normal tone, Normal affect - Studies Laboratory Data (last 24 hrs) 03/09/20 18:52: PT 27.0 H, INR 2.33 03/09/20 18:52: WBC 9.0, Hgb 13.9, Hct 42.8, Plt Count 275 03/09/20 18:52: Sodium 134 L, Potassium 3.7, BUN 4 L, Creatinine 1.00, Glucose 250 H, Magnesium 2.1, Total Bilirubin 0.8, AST 49 H, ALT 20, Alkaline Phosphatase 61 Medications List Reviewed: Yes Assessment & Plan Discharge Plan: Home Plan to discharge in: 24 Hours Physician Review Additional Text: Impression: Dyspnea secondary to COVID 19 pneumonia Obstructive sleep apnea Diabetes mellitus type 2 History DVT on Coumadin Hypertension Plan: Continue with treatment for zamora virus. Continue oxygen to maintain sats above 93%. Will continue wean off. Patient may require oxygen at discharge. Continue with diabetes medication. Restart blood pressure medication. Restart Coumadin. Will continue to reassess. CPAP at night. Will monitor closely. Anticipate improvement over the next 24 hr with possible discharge tomorrow. Time Spent Managing Pts Care (In Minutes): 55
[2020-03-10] MEDS ORDERED: WARFARIN SODIUM 5 MG TAB PO SCH ×4 (17:00)
[2020-03-10] MEDS ORDERED: D50W 25 GM/50 ML VIAL IV PRN (17:22)
[2020-03-10] MEDS: WARFARIN SODIUM 5 MG TAB PO SCH (17:29)
[2020-03-10] MEDS: TRAMADOL HCL 50 MG TAB PO SCH (18:00)
[2020-03-10] MEDS ORDERED: MORPHINE 2 MG/ML SYR IV ONE (19:55)
[2020-03-10] MEDS ORDERED: INSULIN 70/30 100 UNITS/ML SQ SCH (21:00)
[2020-03-10] MEDS: ATORVASTATIN 40 MG TAB PO SCH (21:04)
[2020-03-11 04:05] LABS: C-Reactive Protein 28.4 mg/L (<3.00); Ferritin 376.4 ng/mL (8-388)
[2020-03-11] MEDS: TRAMADOL HCL 50 MG TAB PO SCH ×2 (06:00)
[2020-03-11] MEDS ORDERED: TRAMADOL HCL 50 MG TAB PO PRN (06:00)
[2020-03-11] MEDS ORDERED: BENZONATATE 100 MG CAP PO PRN (07:23)
[2020-03-11] MEDS: NIFEDIPINE XL 60 MG TABLET PO SCH (07:53)
[2020-03-11] MEDS: METOPROLOL XL 100 MG TAB PO SCH (07:57)
[2020-03-11] MEDS: ZINC SULFATE 220 MG CAP PO SCH (07:57)
[2020-03-11] MEDS: ASCORBIC ACID 500 MG TABLET PO SCH ×3 (07:58→22:00)
[2020-03-11] MEDS: INSULIN -REGULAR HUMAN 50 UNIT/0.5 ML ML SQ SCH ×4 (07:58→22:00)
[2020-03-11] MEDS: FUROSEMIDE 40 MG TABLET PO SCH (07:58)
[2020-03-11] MEDS: lisinopriL 20 MG TAB PO SCH (07:59)
[2020-03-11] MEDS: INSULIN 70/30 100 UNITS/ML SQ SCH ×2 (07:59→22:00)
[2020-03-11] MEDS: MONTELUKAST 10 MG TAB PO SCH (07:59)
[2020-03-11] MEDS: VITAMIN D 1000 UNIT TAB PO SCH (08:01)
[2020-03-11] MEDS: METHYLPREDNISOLONE 125 MG INJ IV SCH ×2 (08:02→22:01)
[2020-03-11] MEDS ORDERED: HOME MED 1 EA UNK (Nifedipine [Nifedipine Er] 60 MG Tablet.Er) PO SCH (09:00)
[2020-03-11] MEDS ORDERED: HOME MED 1 EA UNK (Lisinopril [Zestril] 40 MG Tablet) PO SCH (09:00)
[2020-03-11] MEDS ORDERED: METOPROLOL SUCCINATE 200 MG PO SCH (09:00)
--- NOTE | 2020-03-11 09:25 | P.PN ---
Subjective Date of Service: 03/11/20 Chief Complaint: Zamora virus pneumonia Subjective: Other (Patient on BiPAP this morning. Still with increased fatigue. Some shortness of breath with exertion noted.) Physical Examination - Vital Signs Temperature: 97.4 F Blood Pressure: 159/90 Pulse: 84 Respirations: 22 Pulse Ox (%): 93 - Physical Exam General: Alert, In no apparent distress, Cooperative HEENT: Atraumatic Neck: Supple Respiratory: Other (Patient on nasal cannula this morning but requiring BiPAP Overnite) Cardiovascular: Normal pulses, Regular rate/rhythm Gastrointestinal: No guarding Neurological: Normal speech, Normal strength at 5/5 x4 extr, Normal tone, Normal affect - Studies Medications List Reviewed: Yes Assessment & Plan Discharge Plan: Home Plan to discharge in: 48 Hours Physician Review Additional Text: Impression: Dyspnea secondary to COVID 19 pneumonia Obstructive sleep apnea Diabetes mellitus type 2 History DVT on Coumadin Hypertension Plan: Continue with IV Solu-Medrol. Continue to wean off BiPAP. Patient will likely require home oxygen at discharge. Will discuss with social services analyst to help arrange. Will provide bariatric bed with justina. Will have physical therapy assess ambulation. Continue with supplementation. Continue CPAP at night. Continue with diabetic medication. Needs better control of diabetes. Continue with Coumadin. Continue with hypertensive medication. Will continue to reassess. Likely discharge in the next 24-48 hr. Would like for her to require less oxygen and ambulate appropriately without significant shortness of breath before discharge. Will discuss with pulmonology. Time Spent Managing Pts Care (In Minutes): 55
[2020-03-11] MEDS: HYDROCODONE/APAP 7.5/325 MG TAB PO PRN ×2 (09:54→22:00)
[2020-03-11] MEDS ORDERED: WARFARIN SODIUM 5 MG TAB PO SCH (17:00)
[2020-03-11] MEDS ORDERED: ONDANSETRON 4 MG/2 ML VIAL IV PRN (18:50)
[2020-03-11] MEDS: ATORVASTATIN 40 MG TAB PO SCH (22:00)
--- NOTE | 2020-03-12 07:45 | P.PN ---
Subjective Date of Service: 03/12/20 Primary Care Provider: Dr. Craig; Pulmonary-Dr. Norwood Chief Complaint: Zamora virus pneumonia Subjective: Other (Patient slow to improve. still with increasing shortness of breath especially with exertion. Patient still feels weak and tachypneic) Physical Examination - Vital Signs Temperature: 98.0 F Blood Pressure: 137/93 Pulse: 76 Respirations: 22 Pulse Ox (%): 96 - Physical Exam General: Alert, In no apparent distress, Cooperative HEENT: Atraumatic Neck: Supple Respiratory: Other (Patient on BiPAP. When ambulating tachypnea noted.) Cardiovascular: Normal pulses Gastrointestinal: Other (Obesity) Neurological: Normal speech, Normal strength at 5/5 x4 extr, Normal tone, Normal affect - Studies Medications List Reviewed: Yes Assessment & Plan Discharge Plan: Other (Long-term acute care facility placement verses skilled placement) Plan to discharge in: 24 Hours Physician Review Additional Text: Impression: Dyspnea secondary to COVID 19 pneumonia Obstructive sleep apnea Diabetes mellitus type 2 History DVT on Coumadin Hypertension Plan: CRP and ferritin continue to improve. Patient still requiring BiPAP. Some tachypnea noted with exertion. Patient still feels weak and short of breath with exertion. Continue with IV Solu-Medrol and vitamin supplementation. Continue with BiPAP. Will try to wean off BiPAP. Patient uses CPAP at night. Awaiting bariatric bed with trapeze. Will increase basal insulin for better diabetic control. Continue Coumadin. INR stable. Physical therapy to assess ambulation. Discuss options of care for discharge. Patient agreeable for possible long-term acute care facility placement or skilled placement as her recovery will likely be slow. Will try to reach out to her chemical engraver today. Will discuss with pulmonology today as well. Continue medication for hypertension. If patient not eating well will consider dietary consultation to make sure that she gets adequate nutrition. Anticipate discharge to long-term acute care facility verses skilled placement in the next 48 hr. Time Spent Managing Pts Care (In Minutes): 55
[2020-03-12] MEDS: lisinopriL 20 MG TAB PO SCH (08:39)
[2020-03-12] MEDS: MONTELUKAST 10 MG TAB PO SCH (08:39)
[2020-03-12] MEDS: FUROSEMIDE 40 MG TABLET PO SCH (08:39)
[2020-03-12] MEDS: METOPROLOL XL 100 MG TAB PO SCH (08:39)
[2020-03-12] MEDS: VITAMIN D 1000 UNIT TAB PO SCH (08:40)
[2020-03-12] MEDS: ZINC SULFATE 220 MG CAP PO SCH (08:40)
[2020-03-12] MEDS: NIFEDIPINE XL 60 MG TABLET PO SCH (08:40)
[2020-03-12] MEDS: ASCORBIC ACID 500 MG TABLET PO SCH ×3 (08:40→21:17)
[2020-03-12] MEDS: METFORMIN ER 500 MG TAB PO SCH ×2 (08:40→17:25)
[2020-03-12] MEDS: METHYLPREDNISOLONE 125 MG INJ IV SCH ×2 (08:41→21:15)
[2020-03-12] MEDS: INSULIN 70/30 100 UNITS/ML SQ SCH ×2 (08:42→22:23)
[2020-03-12] MEDS: THIAMINE HCL 100 MG TABLET PO SCH (08:42)
[2020-03-12] MEDS: INSULIN -REGULAR HUMAN 50 UNIT/0.5 ML ML SQ SCH ×4 (08:43→22:23)
--- NOTE | 2020-03-12 13:15 | RAD REPORT ---
EXAM DESCRIPTION: RAD - Chest Single View - 03/12/2020 12:49 pm CLINICAL HISTORY: follow up COVID Chest pain. COMPARISON: Chest Single View dated 03/09/2020; Chest Single View dated 08/02/2018; CHEST SINGLE VIEW d ated 02/02/2013; CHEST SINGLE VIEW dated 06/15/2009 FINDINGS: Portable technique limits examination quality. Moderate bilateral pulmonary opacities are noted likely related to viral pneumonitis / COVID-19 infec tion findings the upper lobes appear slightly progressive since comparative radiograph. The heart is mildly prominent with a tortuous thoracic aorta.
[2020-03-12] MEDS: WARFARIN SODIUM 5 MG TAB PO SCH (17:25)
[2020-03-12] MEDS: ATORVASTATIN 40 MG TAB PO SCH (21:17)
[2020-03-12] MEDS: HYDROCODONE/APAP 7.5/325 MG TAB PO PRN (21:55)
[2020-03-13 04:16] LABS: Absolute Lymphocytes (CBC) 1.6 K/uL (0.7-4.9); Basophils % 0.3 % (0-1.3); Hematocrit 44.7 % (36.0-45.0); Lymphocytes % 8.9 % (15.3-44.8); MPV 9.3 fL (7.6-11.3); RBC Red Blood Cell Count 5.29 M/uL (3.86-4.86)
[2020-03-13 05:09] LABS: C-Reactive Protein 28.5 mg/L (<3.00); Ferritin 427.2 ng/mL (8-388); Potassium 3.7 mmol/L (3.5-5.1)
[2020-03-13] MEDS: HYDROCODONE/APAP 7.5/325 MG TAB PO PRN ×2 (05:14→23:57)
[2020-03-13 08:22] LABS: Protime INR 11.2
[2020-03-13] MEDS: METHYLPREDNISOLONE 125 MG INJ IV SCH ×2 (08:50→22:13)
[2020-03-13] MEDS: THIAMINE HCL 100 MG TABLET PO SCH (08:51)
[2020-03-13] MEDS: MONTELUKAST 10 MG TAB PO SCH (08:51)
[2020-03-13] MEDS: ASCORBIC ACID 500 MG TABLET PO SCH ×3 (08:51→22:12)
[2020-03-13] MEDS: VITAMIN D 1000 UNIT TAB PO SCH (08:51)
[2020-03-13] MEDS: METFORMIN ER 500 MG TAB PO SCH ×2 (08:51→17:53)
[2020-03-13] MEDS: ZINC SULFATE 220 MG CAP PO SCH (08:51)
[2020-03-13] MEDS: lisinopriL 20 MG TAB PO SCH (08:52)
[2020-03-13] MEDS: FUROSEMIDE 40 MG TABLET PO SCH (08:52)
[2020-03-13] MEDS: INSULIN -REGULAR HUMAN 50 UNIT/0.5 ML ML SQ SCH ×4 (08:52→22:12)
[2020-03-13] MEDS: WARFARIN SODIUM 5 MG TAB PO SCH (08:53)
[2020-03-13] MEDS: METOPROLOL XL 100 MG TAB PO SCH (08:53)
[2020-03-13] MEDS: NIFEDIPINE XL 60 MG TABLET PO SCH ×2 (08:55→12:24)
--- NOTE | 2020-03-13 08:57 | P.PN ---
Subjective Date of Service: 03/13/20 Primary Care Provider: Dr. Craig; Pulmonary-Dr. Norwood Chief Complaint: Zamora virus pneumonia Subjective: Other (Patient is slowly improving. Patient on her BiPAP. Patient reports no bleeding) Physical Examination - Vital Signs Temperature: 96.6 F Blood Pressure: 141/84 Pulse: 67 Respirations: 18 Pulse Ox (%): 92 - Physical Exam General: Alert, In no apparent distress, Oriented x3, Cooperative HEENT: Atraumatic Neck: Supple Respiratory: Other (Patient on BiPAP) Cardiovascular: Normal pulses, Regular rate/rhythm Neurological: Normal speech, Normal strength at 5/5 x4 extr, Normal tone, Normal affect - Studies Medications List Reviewed: Yes Assessment & Plan Discharge Plan: Other (Home verses long-term acute care facility placement) Plan to discharge in: 72 Hours Physician Review Additional Text: Impression: Dyspnea secondary to COVID 19 pneumonia Obstructive sleep apnea Diabetes mellitus type 2 History DVT on Coumadin-supratherapeutic INR, without bleeding Hypertension Plan: Dyspnea secondary to COVID 19 pneumonia: Patient remains on BiPAP. Continue to wean off. Patient improving overall. Patient does not desire to go to a skilled facility. Will check with social work to see if long-term acute care facility placement is an option. Continue to wean off. INR elevated. This was recheck. No bleeding noted. Therefore will monitor closely. No need for vitamin K at this time. If bleeding noted then will provide vitamin K. Will hold Coumadin if INR greater than 3.0. Will decrease Coumadin to 10 mg daily. She had been getting 10 mg every other day alternating with 15 mg. Will continue monitor closely. Encourage patient to work with physical therapy. Will monitor closely. Obstructive sleep apnea: Continue with her BiPAP machine. Wean off oxygen. Diabetes mellitus type 2: Increase basal insulin. Continue to adjust. History DVT on Coumadin-supratherapeutic INR, without bleeding: INR Was rechecked. Still elevated. No active bleeding noted. Will hold Coumadin. Will also decrease Coumadin as stated above. Will monitor for any bleeding. If bleeding noted or INR continues to rise then will provide vitamin K. Hypertension: Continue medication. Will monitor closely. Time Spent Managing Pts Care (In Minutes): 55
[2020-03-13] MEDS: INSULIN 70/30 100 UNITS/ML SQ SCH ×2 (11:11→22:11)
[2020-03-13] MEDS: ATORVASTATIN 40 MG TAB PO SCH (22:12)
[2020-03-14 07:40] LABS: Absolute Lymphocytes (CBC) 1.8 K/uL (0.7-4.9); Basophils % 0.4 % (0-1.3); Hematocrit 43.1 % (36.0-45.0); Lymphocytes % 9.4 % (15.3-44.8); MPV 9.1 fL (7.6-11.3); RBC Red Blood Cell Count 5.12 M/uL (3.86-4.86)
[2020-03-14 07:53] LABS: Protime INR 12.34
[2020-03-14 07:59] LABS: C-Reactive Protein 9.53 mg/L (<3.00); Ferritin 395.2 ng/mL (8-388)
[2020-03-14] MEDS: METOPROLOL XL 100 MG TAB PO SCH (07:59)
[2020-03-14] MEDS: FUROSEMIDE 40 MG TABLET PO SCH (08:00)
[2020-03-14] MEDS: MONTELUKAST 10 MG TAB PO SCH (08:00)
[2020-03-14] MEDS: METFORMIN ER 500 MG TAB PO SCH ×2 (08:00→16:51)
[2020-03-14] MEDS: THIAMINE HCL 100 MG TABLET PO SCH (08:00)
[2020-03-14] MEDS: ZINC SULFATE 220 MG CAP PO SCH (08:00)
[2020-03-14] MEDS: lisinopriL 20 MG TAB PO SCH (08:00)
[2020-03-14] MEDS: ASCORBIC ACID 500 MG TABLET PO SCH ×3 (08:01→20:50)
[2020-03-14] MEDS: VITAMIN D 1000 UNIT TAB PO SCH (08:01)
[2020-03-14] MEDS: NIFEDIPINE XL 60 MG TABLET PO SCH (08:01)
[2020-03-14] MEDS: INSULIN 70/30 100 UNITS/ML SQ SCH ×2 (08:04→20:49)
[2020-03-14] MEDS: INSULIN -REGULAR HUMAN 50 UNIT/0.5 ML ML SQ SCH ×4 (08:04→20:50)
[2020-03-14] MEDS: METHYLPREDNISOLONE 125 MG INJ IV SCH ×2 (08:05→20:50)
[2020-03-14] MEDS: WARFARIN SODIUM 5 MG TAB PO SCH (08:07)
[2020-03-14 09:44] LABS: Blood Morphology Comment NOT SEEN (NOT SEEN); Platelet Estimate ADEQ
--- NOTE | 2020-03-14 12:00 | P.PN ---
Subjective Date of Service: 03/14/20 Primary Care Provider: Dr. Craig; Pulmonary-Dr. Norwood Chief Complaint: Zamora virus pneumonia Subjective: Improving (Slowly improving) Physical Examination - Vital Signs Temperature: 96.8 F Blood Pressure: 153/87 Pulse: 66 Respirations: 20 Pulse Ox (%): 97 - Physical Exam General: Alert, In no apparent distress, Oriented x3, Cooperative HEENT: Atraumatic Neck: Supple Respiratory: Other (Patient on a 4 L per nasal cannula) Cardiovascular: Normal pulses, Regular rate/rhythm Neurological: Normal speech, Normal strength at 5/5 x4 extr, Normal tone, Normal affect - Studies Medications List Reviewed: Yes Assessment & Plan Discharge Plan: Home Plan to discharge in: 48 Hours Physician Review Additional Text: Impression: Dyspnea secondary to COVID 19 pneumonia Obstructive sleep apnea Diabetes mellitus type 2 History DVT on Coumadin-supratherapeutic INR, without bleeding Hypertension Plan: Dyspnea secondary to COVID 19 pneumonia: Patient continues to improve. Patient uses CPAP at night. Patient weaned down to 4 L. Encourage ambulation with physical therapy. Patient still reports some shortness of breath. Patient does not want to go to a skilled facility. INR still elevated but no evidence of bleeding. Hemoglobin stable. Will hold off on vitamin K. Will monitor closely. If note changed then will consider vitamin K. Coumadin adjusted. Hold Coumadin for now. Increase insulin for better diabetic control. Physical therapy to ambulate. Anticipate home in the next 48 hr. Obstructive sleep apnea: Continue with her CPAP machine. Wean off oxygen. Diabetes mellitus type 2: Increase basal insulin for better diabetic control. Continue to adjust. History DVT on Coumadin-supratherapeutic INR, without bleeding: INR still elevated. Continue to hold Coumadin. Will consider vitamin K if bleeding noted. Continue to monitor INR. Hypertension: Continue medication. Will monitor closely. Time Spent Managing Pts Care (In Minutes): 55
[2020-03-14] MEDS: ATORVASTATIN 40 MG TAB PO SCH (20:50)
[2020-03-15 07:48] LABS: Basophils % 0.4 % (0-1.3); Hematocrit 44.4 % (36.0-45.0); Lymphocytes % 10.1 % (15.3-44.8); MPV 9.1 fL (7.6-11.3); RBC Red Blood Cell Count 5.21 M/uL (3.86-4.86)
[2020-03-15 08:11] LABS: C-Reactive Protein 5.28 mg/L (<3.00); Potassium 3.9 mmol/L (3.5-5.1)
[2020-03-15 08:22] LABS: Protime INR 10.7
[2020-03-15] MEDS: ASCORBIC ACID 500 MG TABLET PO SCH ×3 (08:42→21:25)
[2020-03-15] MEDS: METOPROLOL XL 100 MG TAB PO SCH (08:42)
[2020-03-15] MEDS: VITAMIN D 1000 UNIT TAB PO SCH (08:42)
[2020-03-15] MEDS: METFORMIN ER 500 MG TAB PO SCH ×2 (08:42→17:23)
[2020-03-15] MEDS: NIFEDIPINE XL 60 MG TABLET PO SCH (08:42)
[2020-03-15] MEDS: ZINC SULFATE 220 MG CAP PO SCH (08:43)
[2020-03-15] MEDS: THIAMINE HCL 100 MG TABLET PO SCH (08:43)
[2020-03-15] MEDS: METHYLPREDNISOLONE 125 MG INJ IV SCH ×2 (08:43→21:25)
[2020-03-15] MEDS: FUROSEMIDE 40 MG TABLET PO SCH (08:43)
[2020-03-15] MEDS: lisinopriL 20 MG TAB PO SCH (08:43)
[2020-03-15] MEDS: MONTELUKAST 10 MG TAB PO SCH (08:43)
[2020-03-15] MEDS: INSULIN -REGULAR HUMAN 50 UNIT/0.5 ML ML SQ SCH ×4 (08:44→21:24)
[2020-03-15] MEDS: INSULIN 70/30 100 UNITS/ML SQ SCH ×2 (08:45→21:25)
--- NOTE | 2020-03-15 09:50 | P.PN ---
Subjective Date of Service: 03/15/20 Primary Care Provider: Dr. Craig; Pulmonary-Dr. Norwood Chief Complaint: Zamora virus pneumonia Subjective: Improving Physical Examination - Vital Signs Temperature: 97.5 F Blood Pressure: 139/85 Pulse: 70 Respirations: 20 Pulse Ox (%): 98 - Physical Exam General: Alert, In no apparent distress, Oriented x3, Cooperative HEENT: Atraumatic Respiratory: Other (Patient on 4 L. Patient is not appear in any significant distress) Cardiovascular: Normal pulses Gastrointestinal: No guarding Neurological: Normal speech, Normal strength at 5/5 x4 extr, Normal tone, Normal affect - Studies Microbiology Data (last 24 hrs): 03/09/20 19:11 Blood - Blood Aerobic Blood Culture - Final No growth in 5 days. 03/09/20 19:11 Blood - Blood Anaerobic Blood Culture - Final No growth in 5 days. 03/09/20 18:52 Blood - Blood Aerobic Blood Culture - Final No growth in 5 days. 03/09/20 18:52 Blood - Blood Anaerobic Blood Culture - Final No growth in 5 days. Medications List Reviewed: Yes Assessment & Plan Discharge Plan: Home Plan to discharge in: 48 Hours Physician Review Additional Text: Impression: Dyspnea secondary to COVID 19 pneumonia Obstructive sleep apnea Diabetes mellitus type 2 History DVT on Coumadin-supratherapeutic INR, without bleeding Hypertension Plan: Dyspnea secondary to COVID 19 pneumonia: Patient continues to improve. Patient uses CPAP at night. Currently on 4 L per nasal cannula during the day. Encourage ambulation with physical therapy. Patient reports some shortness of breath. Patient not able to go to skilled facility as per her preference. Patient not a candidate for long-term acute care facility or inpatient rehab. Continue with current medication. INR improved. Continue to hold Coumadin. Continue monitor INR. Continue ambulation. Anticipate improvement over the next 48 hr. Obstructive sleep apnea: Continue with her CPAP machine. Wean off oxygen. Diabetes mellitus type 2: Continue to Increase basal insulin for better diabetic control. Monitor closely. History DVT on Coumadin-supratherapeutic INR, without bleeding: INR still elevated but improved. Continue to hold Coumadin. Will consider vitamin K if bleeding noted. Will monitor INR closely Hypertension: Continue medication. Will monitor closely. Time Spent Managing Pts Care (In Minutes): 55
[2020-03-15] MEDS ORDERED: WARFARIN SODIUM 5 MG TAB PO SCH (17:00)
[2020-03-15] MEDS: ATORVASTATIN 40 MG TAB PO SCH (21:25)
[2020-03-16 07:29] LABS: Absolute Lymphocytes (CBC) 1.6 K/uL (0.7-4.9); Basophils % 0.2 % (0-1.3); Hematocrit 44.1 % (36.0-45.0); Lymphocytes % 9.2 % (15.3-44.8); MPV 9.4 fL (7.6-11.3); RBC Red Blood Cell Count 5.15 M/uL (3.86-4.86)
[2020-03-16 07:36] LABS: Protime INR 8.23
[2020-03-16 07:47] LABS: BUN Blood Urea Nitrogen 24 mg/dL (7-18); Bicarbonate 39 mmol/L (21-32); Ferritin 386.1 ng/mL (8-388); Glucose Level 304 mg/dL (74-106); Potassium 4.2 mmol/L (3.5-5.1); Sodium Level 135 mmol/L (136-145)
[2020-03-16 08:19] LABS: C-Reactive Protein < 2.90 mg/L (<3.00)
[2020-03-16] MEDS: VITAMIN D 1000 UNIT TAB PO SCH (08:38)
[2020-03-16] MEDS: ASCORBIC ACID 500 MG TABLET PO SCH ×3 (08:38→20:42)
[2020-03-16] MEDS: ZINC SULFATE 220 MG CAP PO SCH (08:39)
[2020-03-16] MEDS: MONTELUKAST 10 MG TAB PO SCH (08:39)
[2020-03-16] MEDS: THIAMINE HCL 100 MG TABLET PO SCH (08:39)
[2020-03-16] MEDS: METFORMIN ER 500 MG TAB PO SCH ×2 (08:39→18:21)
[2020-03-16] MEDS: NIFEDIPINE XL 60 MG TABLET PO SCH (08:44)
[2020-03-16] MEDS: FUROSEMIDE 40 MG TABLET PO SCH (08:44)
[2020-03-16] MEDS: METOPROLOL XL 100 MG TAB PO SCH (08:45)
[2020-03-16] MEDS: METHYLPREDNISOLONE 125 MG INJ IV SCH ×2 (08:45→20:42)
[2020-03-16] MEDS: lisinopriL 20 MG TAB PO SCH (08:45)
[2020-03-16] MEDS: INSULIN 70/30 100 UNITS/ML SQ SCH ×2 (08:56→20:21)
[2020-03-16] MEDS: INSULIN -REGULAR HUMAN 50 UNIT/0.5 ML ML SQ SCH ×4 (08:57→20:19)
[2020-03-16] MEDS ORDERED: HYDRALAZINE HCL 20 MG/ML VIAL IV ONE (13:45)
[2020-03-16] MEDS ORDERED: HYDRALAZINE HCL 20 MG/ML VIAL IV PRN (15:55)
--- NOTE | 2020-03-16 15:58 | P.PN ---
Subjective Date of Service: 03/16/20 Primary Care Provider: Dr. Craig; Pulmonary-Dr. Norwood Chief Complaint: Zamora virus pneumonia Subjective: Improving (Patient reports improvement. Patient on 4 L per nasal cannula. CPAP at night) Physical Examination - Vital Signs Temperature: 96.5 F Blood Pressure: 182/104 Pulse: 69 Respirations: 22 Pulse Ox (%): 94 - Physical Exam General: Alert, In no apparent distress, Oriented x3, Cooperative HEENT: Atraumatic Neck: Supple Respiratory: Other (Patient on 4 L this morning) Cardiovascular: Normal pulses, Regular rate/rhythm Neurological: Normal speech, Normal strength at 5/5 x4 extr, Normal tone, Normal affect - Studies Medications List Reviewed: Yes Assessment & Plan Discharge Plan: Home Plan to discharge in: 48 Hours Physician Review Additional Text: Impression: Dyspnea secondary to COVID 19 pneumonia Obstructive sleep apnea Diabetes mellitus type 2 History DVT on Coumadin-supratherapeutic INR, without bleeding Hypertension Plan: Dyspnea secondary to COVID 19 pneumonia: Patient continues to improve. Patient uses CPAP at night. Currently on 4 L per nasal cannula during the day. Patient better ambulating without significant shortness of breath. Encourage ambulation with physical therapy. Patient reports some shortness of breath. Patient not able to go to skilled facility as per her preference. Patient not a candidate for long-term acute care facility or inpatient rehab. Continue with current medication. INR improved. Continue to hold Coumadin. Coumadin has been adju sted. Continue monitor INR. Continue ambulation. Consider discharge tomorrow if INR below 4.0. Blood pressure elevated today. Medications reviewed. Will add IV medication if needed. Will need to monitor this closely. Anticipate improvement over the next 48 hr. I will turn the service over to the hospitalist team tomorrow. I will go plan of care with him. Obstructive sleep apnea: Continue with her CPAP machine. Wean off oxygen. Diabetes mellitus type 2: Continue to Increase basal insulin for better diabetic control. Monitor closely. History DVT on Coumadin-supratherapeutic INR, without bleeding: INR still elevated but improved. Now around 8. Continue to hold Coumadin. Will consider vitamin K if bleeding noted. No bleeding noted at this time. Will monitor INR closely. consider discharge as early as tomorrow if INR below 4.0. Hypertension: Continue medication. Will monitor closely. Patient on Nifedical, lisinopril and metoprolol. Will add hydralazine IV. Patient may require hydralazine at discharge. Time Spent Managing Pts Care (In Minutes): 55
[2020-03-16] MEDS: ATORVASTATIN 40 MG TAB PO SCH (20:42)
[2020-03-16] MEDS: HYDROCODONE/APAP 7.5/325 MG TAB PO PRN (20:59)
[2020-03-17 02:57] VITALS: BMI 73.1
[2020-03-17 07:11] LABS: Protime INR 4.74
[2020-03-17 07:38] LABS: Ferritin 415.2 ng/mL (8-388)
[2020-03-17 07:49] LABS: C-Reactive Protein < 2.90 mg/L (<3.00)
[2020-03-17] MEDS: VITAMIN D 1000 UNIT TAB PO SCH (09:18)
[2020-03-17] MEDS: NIFEDIPINE XL 60 MG TABLET PO SCH (09:18)
[2020-03-17] MEDS: lisinopriL 20 MG TAB PO SCH (09:18)
[2020-03-17] MEDS: METFORMIN ER 500 MG TAB PO SCH ×2 (09:18→17:00)
[2020-03-17] MEDS: METOPROLOL XL 100 MG TAB PO SCH (09:19)
[2020-03-17] MEDS: ASCORBIC ACID 500 MG TABLET PO SCH ×3 (09:19→21:56)
[2020-03-17] MEDS: THIAMINE HCL 100 MG TABLET PO SCH (09:19)
[2020-03-17] MEDS: ZINC SULFATE 220 MG CAP PO SCH (09:19)
[2020-03-17] MEDS: FUROSEMIDE 40 MG TABLET PO SCH (09:19)
[2020-03-17] MEDS: MONTELUKAST 10 MG TAB PO SCH (09:19)
[2020-03-17] MEDS: METHYLPREDNISOLONE 125 MG INJ IV SCH ×2 (09:19→21:57)
[2020-03-17] MEDS: INSULIN 70/30 100 UNITS/ML SQ SCH ×2 (09:20→21:57)
[2020-03-17] MEDS: INSULIN -REGULAR HUMAN 50 UNIT/0.5 ML ML SQ SCH ×4 (09:20→21:55)
[2020-03-17] MEDS: ATORVASTATIN 40 MG TAB PO SCH (21:57)
[2020-03-18] MEDS: HYDROCODONE/APAP 7.5/325 MG TAB PO PRN (01:41)
[2020-03-18 06:14] LABS: Absolute Lymphocytes (CBC) 1.8 K/uL (0.7-4.9); Basophils % 0.4 % (0-1.3); Hematocrit 47.2 % (36.0-45.0); Lymphocytes % 7.8 % (15.3-44.8); MPV 9.2 fL (7.6-11.3)
[2020-03-18 06:17] LABS: Protime INR 2.84
[2020-03-18 06:32] LABS: BUN Blood Urea Nitrogen 29 mg/dL (7-18); Bicarbonate 35 mmol/L (21-32); Glucose Level 280 mg/dL (74-106); Magnesium 2.1 mg/dL (1.8-2.4); NT PRO-BNP 68 pg/mL (<125); Phosphorus 4.3 mg/dL (2.5-4.9); Potassium 4.8 mmol/L (3.5-5.1); Sodium Level 135 mmol/L (136-145)
[2020-03-18 06:45] LABS: C-Reactive Protein < 2.90 mg/L (<3.00)
[2020-03-18] MEDS: METOPROLOL XL 100 MG TAB PO SCH (08:59)
[2020-03-18] MEDS: lisinopriL 20 MG TAB PO SCH (09:00)
[2020-03-18] MEDS: METFORMIN ER 500 MG TAB PO SCH (09:00)
[2020-03-18] MEDS: VITAMIN D 1000 UNIT TAB PO SCH (09:00)
[2020-03-18] MEDS: ASCORBIC ACID 500 MG TABLET PO SCH ×2 (09:00→12:57)
[2020-03-18] MEDS: NIFEDIPINE XL 60 MG TABLET PO SCH ×2 (09:00)
[2020-03-18] MEDS ORDERED: NA CHLORIDE 0.9% 250 ML IV ONE (09:00)
[2020-03-18] MEDS: ZINC SULFATE 220 MG CAP PO SCH (09:01)
[2020-03-18] MEDS: THIAMINE HCL 100 MG TABLET PO SCH (09:01)
[2020-03-18] MEDS: MONTELUKAST 10 MG TAB PO SCH (09:01)
[2020-03-18] MEDS: INSULIN -REGULAR HUMAN 50 UNIT/0.5 ML ML SQ SCH ×2 (09:03→12:15)
[2020-03-18] MEDS: INSULIN 70/30 100 UNITS/ML SQ SCH (09:03)
[2020-03-18] MEDS: FUROSEMIDE 40 MG TABLET PO SCH (09:03)
[2020-03-18] MEDS: METHYLPREDNISOLONE 125 MG INJ IV SCH (09:04)
--- NOTE | 2020-03-18 10:05 | P.PN ---
Subjective Date of Service: 03/17/20 Patient is clinically doing well with no new complaints. Review of Systems 10-point ROS is otherwise unremarkable Physical Examination - Vital Signs Temperature: 97.0 F Blood Pressure: 130/72 Pulse: 56 Respirations: 19 Pulse Ox (%): 95 - Physical Exam General: Alert, In no apparent distress, Oriented x3 Respiratory: Clear to auscultation bilaterally, Normal air movement Cardiovascular: Regular rate/rhythm, Normal S1 S2 Gastrointestinal: Normal bowel sounds, Soft and benign, Non-distended, No tenderness Musculoskeletal: No tenderness Integumentary: No rashes Neurological: Sensation intact, Cranial nerves 3-12 intact, Normal reflexes 2+ - Studies Medications List Reviewed: Yes Assessment & Plan - Problems (Diagnosis) (1) Pneumonia due to Coronavirus disease 2018 Status: Acute (2) Adult BMI >=70 kg/sq m Status: Acute (3) HTN (hypertension) Status: Acute - Plan Plan: 1. IV steroids and IV antibiotic therapy; prone positioning 2. Repeat labs including ferritin, D-dimer, LDH, and CRP levels every 48 hours 3. Cough medication as needed 4. Respiratory isolation including droplet precautions 5. Albuterol inhaler therapy as needed 6. Anticoagulation 7. Repeat chest x-ray as needed 8. Monitor volume status 9. O2 per protocol including high flow oxygen if necessary. If BiPAP needed than place a negative pressure room 10. GI prophylaxis Discharge Plan: Home Plan to discharge in: Greater than 2 days - Advance Directives Does patient have a Living Will: No Does patient have a Durable POA for Healthcare: No - Code Status/Comfort Care Code Status Assessed: Yes Code Status: Full Code Critical Care: No Time Spent Managing PTS Care (In Minutes): 45
--- NOTE | 2020-03-18 10:05 | P.DS ---
Discharge Date: 03/18/20 Primary Care Provider: Dr. Craig; Pulmonary-Dr. Norwood Disposition: ROUTINE DISCHARGE Discharge Condition: GOOD Reason for Admission: Zamora virus pneumonia - Problems (1) Pneumonia due to Coronavirus disease 2019 Status: Acute (2) Adult BMI >=70 kg/sq m Status: Acute (3) HTN (hypertension) Status: Acute Brief History of Present Illness: Patient is a 49 years old female who was diagnosed positive a week ago with COVID infection who developed progressive shortness of breath. Patient has a hisotry of morbid obesityand DTs who has been compliant with her medication & is currently on 2 L on nasal cannula oxygen saturation satisfactory. Patient was treated for COVID -19 pneumonia. Hospital Course: Patient is clinically doing much better. Oxygen saturations were stable. At this time, patient is stable for discharge home. Vital Signs/Physical Exam: Temp Pulse Resp BP Pulse Ox 97.0 F 56 19 130/72 95 03/18/20 10:05 03/18/20 10:05 03/18/20 10:05 03/18/20 10:05 03/18/20 10:05 General: Alert, In no apparent distress, Oriented x3 Laboratory Data at Discharge: WBC 22.8 K/uL (4.3-10.9) H* D 03/18/20 05:58 Hgb 15.5 g/dL (12.0-15.0) H 03/18/20 05:58 Hct 47.2 % (36.0-45.0) H 03/18/20 05:58 Plt Count 445 K/uL (152-406) H 03/18/20 05:58 PT 32.8 SECONDS (9.5-12.5) H 03/18/20 05:58 INR 2.84 03/18/20 05:58 Sodium 135 mmol/L (136-145) L 03/18/20 05:58 Potassium 4.8 mmol/L (3.5-5.1) 03/18/20 05:58 BUN 29 mg/dL (7-18) H 03/18/20 05:58 Creatinine 1.07 mg/dL (0.55-1.3) 03/18/20 05:58 Glucose 280 mg/dL (74-106) H 03/18/20 05:58 Phosphorus 4.3 mg/dL (2.5-4.9) 03/18/20 05:58 Magnesium 2.1 mg/dL (1.8-2.4) 03/18/20 05:58 Total Bilirubin 0.8 mg/dL (0.2-1.0) 03/10/20 03:12 AST 43 U/L (15-37) H 03/10/20 03:12 ALT 22 U/L (12-78) 03/10/20 03:12 Alkaline Phosphatase 59 U/L (45-117) 03/10/20 03:12 Home Medications: Atorvastatin Calcium [Lipitor] 40 mg PO BEDTIME 03/10/20 Furosemide 40 mg PO DAILY 03/10/20 Insulin 70/30 NPH/Reg Human [Novolin 70/30*] 55 unit SQ Q12HR 03/10/20 Liraglutide [Victoza 2-Jose M] 0.8 mg SQ 03/10/20 Lisinopril [Zestril] 40 mg PO DAILY 03/10/20 Metformin ER [Glucophage ER*] 500 mg PO BID 03/10/20 Metoprolol Succinate [Toprol Xl] 200 mg PO DAILY 03/10/20 Montelukast [Singulair*] 10 mg PO DAILY 03/10/20 Nifedipine [Nifedipine ER] 60 PO DAILY 03/10/20 Tramadol HCl [Ultram] 50 mg PO Q6HR PRN 03/10/20 Triamcinolone 0.1% Oint [Kenalog 0.1% Ointment*] 1 TOP DAILY 03/10/20 Ascorbic Acid [Vitamin C*] 500 mg PO TID #60 tablet 03/18/20 Benzonatate [Tessalon Perle*] 100 mg PO TID PRN #30 cap 03/18/20 Cholecalciferol (Vitamin D3) [Vitamin D 1000 Iu Tab*] 2,000 unit PO DAILY #30 tab 03/18/20 Thiamine HCl [Vitamin B-1*] 100 mg PO DAILY #30 tablet 03/18/20 Warfarin Sodium [Coumadin*] 5 mg PO DAILY #30 tab 03/18/20 Zinc Sulfate [Zinc Sulfate*] 220 mg PO DAILY #30 cap 03/18/20 New Medications: Warfarin Sodium [Coumadin*] 5 mg PO DAILY #30 tab Benzonatate [Tessalon Perle*] 100 mg PO TID PRN #30 cap PRN Reason: Cough Thiamine HCl [Vitamin B-1*] 100 mg PO DAILY #30 tablet Ascorbic Acid [Vitamin C*] 500 mg PO TID #60 tablet Cholecalciferol (Vitamin D3) [Vitamin D 1000 Iu Tab*] 2,000 unit PO DAILY #30 tab Zinc Sulfate [Zinc Sulfate*] 220 mg PO DAILY #30 cap Patient Discharge Instructions: OK TO DC IV AND DC HOME. FOLLOW-UP WITH PRIMARY CARE PROVIDER IN 1-2 WEEKS. FOLLOW-UP WITH PULMONARY IN 1-2 WEEKS. RETURN TO THE ER IF SYMPTOMS WORSENS. CALL or TEXT DR. SALDAÑA AT [phone] IF ANY QUESTIONS REGARDING HOSPITAL STAY. PLEASE CALL THE FLOOR AT [phone] IF ANY MEDICATION OR NURSING QUESTIONS. Diet: AHA Activity: Fall precautions Followup: Silverio Atkins MD [ACTIVE - CAN ADMIT] - Paul Ruiz, [Primary Care Provider] - Time spent managing pt's care (in minutes): 35
[2020-03-18 11:26] VITALS: O2SAT 93
[2020-03-26 01:22] VITALS: BP 130/72; TEMP 97
== END 2020-03-18 14:10 | disposition home or self-care (01) | DRG 177 ==
LOC: ER 17:36 → ERHOLD 19:45 → 4TH 03-10 12:13 → OBSVTOIN 03-11 12:15
PROVIDERS: ADMIT Internal Medicine Sleep Medicine; ATTEND Hospitalist
DX: U07.1 COVID-19 (principal); J12.82 Pneumonia due to coronavirus disease 2019; Z68.45 Body mass index [BMI] 70 or greater, adult; E66.01 Morbid (severe) obesity due to excess calories; E11.65 Type 2 diabetes mellitus with hyperglycemia; G47.33 Obstructive sleep apnea (adult) (pediatric); I10 Essential (primary) hypertension; Z86.718 Personal history of other venous thrombosis and embolism; Z86.711 Personal history of pulmonary embolism; Z79.4 Long term (current) use of insulin; Z79.01 Long term (current) use of anticoagulants; Z79.899 Other long term (current) drug therapy
CPT/HCPCS: 36415; 71045; 80048; 80053; 80076; 82728; 82947; 83605; 83735; 83880; 84100; 84484; 85025; 85379; 85610; 86140; 87040; 93005; 94760; 96365; 96368; 96375; 97116; 97161; 97164; 97530; 99285; G0378; J0360; J0456; J0696; J1100; J1815; J1940; J2270; J2405; J2920; J2930; J7030; J7050

== ENCOUNTER 2020-05-28 10:22 | Emergency (ER) | payer OTHER ==
--- OUTSIDE RECORDS SUMMARY | 2020-05-28 10:25 | XMS REPORT | Continuity of Care Document ---
:1970 Author Organization [facility] t Address [address] [place] [address] Care Team Providers Name Role Phone UNKNOWN Primary Care Physician Unavailable Leno MORGAN, H Attending Clinician Nato Harden DO Attending Clinician Kaleb VALDOVINOS Attending Clinician Sam MORGAN, K.H. 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 00:00: n 00 Morbid Morbid Disease Active obesity obesity 2-16 Anderso 00:00: n 00 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 current -16 Anderso use of use of 00:00: n anticoagul anticoagul 00 ant ant Personal Personal Disease Active 2015-03 history of history of 2-13 An derso pulmonary pulmonary 00:00: n embolism embolism 00 Hyperlipid Hyperlipid Disease Active 0 M D emia emia 7- Anderso 00:00: n 00 Esophageal Esophageal Disease Active M D reflux reflux 4- Anderso 00:00: n 00 Type 2 Type 2 Disease Active diabetes diabetes 09-01 Christopher o mellitus mellitus 00:00: n 00 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 Social History Social Habit Start Date Stop [...] Date Date Medication? Clinician (SIG) Name Name dextroamphe Yes 30mg Take 30 mg tamine-amph 2-14 by mouth Taoflor tavera etamine 30 17:37: daily. n mg tab 53 glycopyrrol 0 Yes daily. ate-formote 2-14 Andersarnaldo rol 9-4.8 17:37: n mcg HFAA 53 clotrimazol Yes twice MD ray 2-12 daily. Andhoracio (LOTRIMIN-A 00:00: n F) 1% cream 00 insulin Yes 24U Inject 24 MD glargine 1-17 [...] 40mg Take 40 mg M D (PRINIVIL,Z 1-08 by mouth Tao rso ESTRIL) 40 00:00: [...] 00:00: n mcg/spray 00 nasal spray ciclopirox 2014-03 Yes Apply MD (PENLAC) 8% 2-02 topically And erso solution 00:00: to n 00 affected area(s) at bedtime. Metoprolol Metoprolol Yes Prasad [address] [facility] Succinate Succinate [facility] Lisinopril Lisinopril Yes Prasad [address] [facility] Amphetamine Amphetamine Yes Prasad (Schedule [facility] -Dextroamph -Dextroamph Marie II Drug) [facility] - etamine etamine TAKE HALF Danny lisa OF A l TABLET (15 Outpati MG) BY ent MOUTH ONE Clinics TIME NovoLog NovoLog Yes Prasad [address] [facility] Azelastine Azelastine Yes Prasad [address] [facility] HCl HCl Marie each [facility] nostril [facility] Golytely Golytely Yes Prasad as [facility] directed [facility] Nystatin Nystatin Yes Prasad [address] [facility] applicatio [facility] Triamcinolo Triamcinolo Yes Prasad [address] [facility] ne ne Marie applicatio [facility] - Acetonide Acetonide n [facility] Tramadol Tramadol Yes Prasad (Schedule [facility] HCl HCl Marie IV Drug) [facility] - TAKE 1 Memoria TABLET BY l MOUTH Outpati EVERY 6 ent HOURS Clinics NEEDED FOR PAIN Montelukast Montelukast Yes Prasad [address] [facility] Sodium Sodium [facility] Indomethaci Indomethaci Yes Prasad [address] [facility] n n Marie with food [facility] - or milk [facility] Clotrimazol Clotrimazol Yes Prasad [address] [facility] e-Betametha e-Betametha Marie applicatio [facility] - sone sone n [facility] Contour Contour Yes Prasad not [facility] Meter Meter Marie defined [facility] Contour Contour Yes Prasad as [facility] Next Test Next Test Marie directed L [facility] - [facility] MetFORMIN MetFORMIN Yes Prasad [address] [facility] HCl ER HCl ER Marie with [facility] - evening [facility] meal [facility] Furosemide Furosemide Yes Prasad 1 [...] Prasad 1.[address] [facility] Mupirocin Mupirocin Yes Prasad [address] [facility] applicatio [facility] ent [facility] Glycopyrrol Glycopyrrol Yes Prasad [address] ate-Formote ate-Formote Marie L ukes - rol rol [facility] Outpati ent Clinics Allopurinol Allopurinol Yes Prasad [address] [facility] [facility] - [facility]pat[facility] ent Clinics Nifedipine Nifedipine Yes Prasad [address] [facility] ER ER [facility] Levocetiriz Levocetiriz Yes Prasad [address] [facility] ine ine Marie in the [facility] - Dihydrochlo Dihydrochlo evening Memoria ride ride l Outpati ent Clinics [place] Yes Prasad as [facility] /16" 516" Marie directed [facility] Outpat[facility] [...] [facility] e Sodium e Sodium Marie [facility] Outpati ent Clinics Procedures This patient has no known procedures. Encounters Start End Encounter Admission Attending Care Care Encounter Source Date/Time Date/Time Type Type Clinicians Facility Department ID 2020-05-26 2020-05-26 JANELLE Baker [id number] 00:00:00 00:00:00 Varinder Escobar [id number] Millie [id number] Professio [phone] nal 220 [facility] 2020-05-20 2020-05-20 Patient Dereck, [facility] [id number] 00:00:00 00:00:00 Outreach Lonnie HANDY [id number] [facility] [id number] SUDEEP [id number] 2020-05-16 2020-05-16 Telephone Kaleb [facility] [id number] 00:00:00 00:00:00 Essence Escobar [id number] [place] [id number] Professio [phone] [facility] 134 [facility] 2020-04-25 2020-04-25 Telephone Sam [facility] [id number] 00:00:00 00:00:00 Catie Escobar [id number] [place] [id number] Professio [id number] nal 059 [facility] 2020-04-20 2020-04-20 Orders Doctor BENNETT [id number] 00:00:00 00:00:00 Only Unassigned, SASHA [id number] [place] [facility] [id number] 2020-04-12 2020-04-12 Orders Doctor BENNETT [id number] 00:00:00 00:00:00 Only Unassigned, SASHA [id number] [place] [facility] [id number] 2020-04-08 2020-04-08 [facility] [id number] 00:00:00 00:00:00 Catie Escobar [id number] [place] [id number] Professio [phone] nal 059 [facility] 2020-04-07 2020-04-07 Outpatient [facility]C [facility] [id number] [facility]00 [facility] 2020-04-04 2020-04-04 Patient Sam IAWILL [id number] 00:00:00 00:00:00 Secure Msg [facility] [id number] Clear [id number] Cheng [phone] [place] [address] [address] 2020-04-04 2020-04-04 Patient Sam [facility] [id number] 00:00:00 00:00:00 Secure Msg [facility] [id number] Clear [id number] Cheng [phone] [place] [address] Office [address] 2020-03-31 2020-03-31 Telephone Sam IAWILL [id number] 00:00:00 00:00:00 [facility] [id number] [place] [id number] Profess [phone] [address] 2020-03-28 2020-03-28 Outpatient [facility] [id number] [facility] 2020-03-27 2020-03-27 Outpatient [facility] [id number] [facility] 2020-03-26 2020-03-26 Outpatient [facility] [id number] [facility] 2020-03-26 2020-03-26 Outpatient [facility] [id number] [facility] 2020-03-26 2020-03-26 Outpatient [facility] [id number] [facility] 2020-03-25 2020-03-25 Outpatient [facility] [id number] [facility] 2020-03-22 2020-03-22 Orders Doctor GUAJARDO [id number] 00:00:00 00:00:00 Only Unassigned, SASHA [id number] [place] [facility] [id number] 2020-03-10 2020-03-10 Outpatient [facility] [id number] [facility] 2020-03-09 2020-03-09 Outpatient [facility] [id number] [facility] 2020-03-06 2020-03-06 Outpatient [facility] [id number] [facility] 2020-02-26 2020-02-26 Outpatient [facility] [id number] [facility] 2020-02-19 2020-02-19 Outpatient [facility] [id number] [facility] 2019-12-24 2019-12-24 Outpatient [facility] [id number] [facility] 2019-10-17 2019-10-17 [facility] [id number] [facility] 16:47:00 16:47:00 t [facility] Clinics 2019-10-08 2019-10-08 [facility] [id number] 14:30:00 14:30:00 t [facility] 2019-09-19 2019-09-19 [facility] [id number] 16:05:00 16:05:00 [place] [facility] ent Clinics 2019-09-19 2019-09-19 [facility] [id number] 15:15:00 15:15:00 t [facility] Medicine Medicine Outpati ent Clinics 2019-08-16 2019-08-16 [facility] [id number] [place] 00:00:00 00:00:00 DEOND[place] [address] 2017-01-10 2017-01-10 Emergency E [facility] [id number] [facility] 15:23:00 15:23:00 Results Test Description Test [...]
[2020-05-28] MEDS ORDERED: DIPHENHYDRAMINE 25 MG TAB/CAP ONE (14:08)
[2020-05-28] MEDS ORDERED: predniSONE 20 MG TAB ONE (14:08)
[2020-05-28] MEDS ORDERED: FAMOTIDINE 20 MG TAB ONE (14:08)
--- NOTE | 2020-05-28 15:07 | RAD REPORT ---
EXAM DESCRIPTION: US - Extremity Nonvascular Limited - 05/28/2020 2:27 pm CLINICAL HISTORY: forehead;Pain;Swelling COMPARISON: No comparisons FINDINGS: Limited sonographic evaluation was performed of the soft tissues overlying the left forehe ad. In the deep left forehead soft tissues there is a 10 x 10 x 8 2 mm discoid mass identified abutting t he frontal bone. The underlying frontal bone is intact. The mass shows a thin hyperechoic rim and philly trally hypoechoic. Imaging characteristics are nonspecific. This potentially a hematoma. This would p robably be old though the patient indicates the mass to be acute onset. No other focal mass identifiable. IMPRESSION: Small 10 x 10 x 2 mm discoid mass in the deep scalp tissues left forehead. This may be o ld hematoma. An aggressive or worrisome mass is unlikely. The underlying frontal bone is uninvolved.
--- NOTE | 2020-05-28 15:57 | ER ---
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 Warm to touch, swollen, itchy, tender to the touch. Also, reports R hip pain x 1 week, worse when moving R leg. Denies injury. Coronavirus screen: Client denies travel out of the [place] in the last 14 days. At this time, the client does not indicate any symptoms associated with coronavirus-19. Ebola Screen: Patient negative for fever greater than or equal to 101.5 degrees Fahrenheit, and additional compatible Ebola Virus Disease symptoms Patient denies exposure to infectious person. Patient denies travel to an Ebola-affected area in the 21 days before illness onset. No symptoms or risks identified at this time. Initial Sepsis Screen: Does the patient meet any 2 criteria? No. Patient's initial sepsis screen is negative. Does the patient have a suspected source of infection? No. Patient's initial sepsis screen is negative. Risk Assessment: Do you want to hurt yourself or someone else? Patient reports no desire to harm self or others. Onset of symptoms was May 27, 2020. 10:37 Method Of Arrival: Wheelchair ca1 10:37 Acuity: RAQUEL 4 ca1 RN CLINICAL: 10:43 LMP N/A - control method ca1 Historical: - Allergies: 10:43 No Known Allergies; ca1 - PMHx: 10:43 Diabetes - IDDM; DVT; Hypertension; PE; ca1 - PSHx: 10:43 None; ca1 - Immunization history:: Flu vaccine is up to date. - Social history:: Smoking status: Patient denies any tobacco usage or history of. Screenin:41 Abuse screen: Denies threats or abuse. Denies injuries from another. Nutritional zb screening: No deficits noted. Tuberculosis screening: No symptoms or risk factors identified. Fall Risk None identified. Assessment: 12:39 General: Appears in no apparent distress. uncomfortable, Behavior is calm, cooperative, zb appropriate for age. Pain: Complains of pain in right flank, left arm, left side of forehead. Pain does not radiate. Pain currently is 9 out of 10 on a pain scale. Quality of pain is described as aching, sharp, Aggravated by increased activity, repositioning. Neuro: Level of Consciousness is awake, alert, obeys commands, Oriented to person, place, time, situation. Cardiovascular: Capillary refill < 3 seconds Patient's skin is warm and dry. Respiratory: Airway is patent Respiratory effort is even, unlabored, Respiratory pattern is regular, symmetrical. GI: Abdomen is obese. Derm: raised swelling on left upper arm. warm and hot to touch. Abscess located on left side of forhead is dime sized, is red, is raised. Musculoskeletal: Range of motion: intact in all extremities. 13:30 Reassessment: Patient appears in no apparent distress at this time. Patient and/or zb family updated on plan of care and expected duration. Pain level reassessed. Patient is alert, oriented x 3, equal unlabored respirations, skin warm/dry/pink. 14:30 Reassessment: Patient appears in no apparent distress at this time. Patient and/or zb family updated on plan of care and expected duration. Pain level reassessed. Patient is alert, oriented x 3, equal unlabored respirations, skin warm/dry/pink. pt has been seen by US. awaiting results. 15:30 Reassessment: Patient appears in no apparent distress at this time. Patient and/or zb family updated on plan of care and expected duration. Pain level reassessed. Patient is alert, oriented x 3, equal unlabored respirations, skin warm/dry/pink. 16:02 Reassessment: Patient appears in no apparent distress at this time. Patient and/or zb family updated on plan of care and expected duration. Pain level reassessed. Patient is alert, oriented x 3, equal unlabored respirations, skin warm/dry/pink. notified that PCP with coming and speak to her. 16:30 Reassessment: d/c instruction given. patient wheeled out by wheelchair. no questions at zb this time. Vital Signs: 10:37 BP 143 / 83; Pulse 78; Resp 16 S; Temp 98(TE); Pulse Ox 98% on R/A; Height 5 ft. 4 in. ca1 (162.56 cm) (R); Pain 8/10; 14:42 BP 159 / 95; Pulse 74; Resp 18; Pulse Ox 97% on R/A; zb 16:03 BP 171 / 105; Pulse 80; Resp 16; Pulse Ox 95% on R/A; zb ED Course: 10:23 Patient arrived in ED. as 10:42 Triage completed. ca1 10:43 Arm band placed on right wrist. ca1 11:[address] MD is Attending Physician. kdr 12:03 Monserrat Calderón RN is Primary Nurse. zb 12:42 Patient has correct armband on for positive identification. Bed in low position. Call zb light in reach. Side rails up X 1. Pulse ox on. NIBP on. Door closed. Noise minimized. 14:28 US Extrmty Nonvasular Limited In Process Unspecified. EDMS 16:28 No provider procedures requiring assistance completed. Patient did not have IV access zb during this emergency room visit. Administered Medications: 13:53 Drug: predniSONE 40 mg Route: PO; zb 14:41 Follow up: Response: No adverse reaction zb 13:54 Drug: Benadryl 50 mg Route: PO; zb 14:41 Follow up: Response: No adverse reaction zb 13:54 Drug: Pepcid 20 mg Route: PO; zb 14:41 Follow up: Response: No adverse reaction zb Outcome: 15:56 Discharge ordered by . kdr 16:28 Discharged to home via wheelchair. zb 16:28 Condition: stable 16:28 Discharge instructions given to patient, Instructed on discharge instructions, follow up and referral plans. Demonstrated understanding of instructions, follow-up care, medications, Prescriptions given X 3. 16:33 Patient left the ED. zb Signatures: Dispatcher [employer] EDMS Varinder Lane MD MD kdr Beth Ramirez Cheryl, RN RN ca1 Monserrat Calderón RN RN zb Corrections: (The following items were deleted from the chart) 16:04 16:03 BP 171 / 105; Pulse 80bpm; Resp 79bpm; Pulse Ox 95% RA; zb zb
--- NOTE | 2020-05-28 15:57 | EDPHYS ---
Physician Documentation [facility] Name: Radha Gregory Age: 49 yrs Sex: Female : 1970 Arrival Date: 05/28/2020 Time: 10:23 Bed 23 Private MD: ED Physician Varinder Lane HPI: 05/29 07:11 This 49 yrs old Black Female presents to ER via Wheelchair with complaints of knot on kdr forehead, side pain. 07:11 The patient has multiple c/o including forehead swelling, left shoulder welts and right kdr hip pain - non-traumatic. Onset: The symptoms/episode began/occurred The hip pain has been for about a week, the swelling to her forehead and shoulder since yesterday . Severity of symptoms: At their worst the symptoms were Hip pain is very mild, the swelling to her forehead is moderate and the swelling to her shoulder is minor, in the emergency department the symptoms are unchanged. The patient has not experienced similar symptoms in the past. The patient has not recently seen a physician. 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 - Social history:: Smoking status: Patient denies any tobacco usage or history of. ROS: 05/29 07:11 Constitutional: Negative for fever, chills, and weight loss, Eyes: Negative for injury, kdr pain, redness, and discharge, ENT: Negative for injury, pain, and discharge, Neck: Negative for injury, pain, and swelling, Cardiovascular: Negative for chest pain, palpitations, and edema, Respiratory: Negative for shortness of breath, cough, wheezing, and pleuritic chest pain, Abdomen/GI: Negative for abdominal pain, nausea, vomiting, diarrhea, and constipation, Back: Negative for injury and pain, : Negative for injury, bleeding, discharge, and swelling, Neuro: Negative for headache, weakness, numbness, tingling, and seizure activity. Psych: Negative for depression, anxiety, suicide ideation, homicidal ideation, and hallucinations, Allergy/Immunology: Negative for hives, rash, and allergies, Endocrine: Negative for neck swelling, polydipsia, polyuria, polyphagia, and marked weight changes, Hematologic/Lymphatic: Negative for swollen nodes, abnormal bleeding, and unusual bruising. MS/extremity: Positive for welts to left shoulder and superficial swelling to forehead that started on the left side and now has become more diffuse. Skin: Positive for erythema, swelling, of the forehead, anterior aspect of left shoulder and posterior aspect of left shoulder. Exam: 07:11 Constitutional: This is a well developed, well nourished patient who is awake, alert, kdr and in no acute distress. Eyes: Pupils equal round and reactive to light, extra-ocular motions intact. Lids and lashes normal. Conjunctiva and sclera are non-icteric and not injected. Cornea within normal limits. Periorbital areas with no swelling, redness, or edema. Neck: Trachea midline, no thyromegaly or masses palpated, and no cervical lymphadenopathy. Supple, full range of motion without nuchal rigidity, or vertebral point tenderness. No Meningismus. Chest/axilla: Normal chest wall appearance and motion. Nontender with no deformity. No lesions are appreciated. Cardiovascular: Regular rate and rhythm with a normal S1 and S2. No gallops, murmurs, or rubs. Normal PMI, no JVD. No pulse deficits. Respiratory: Lungs have equal breath sounds bilaterally, clear to auscultation and percussion. No rales, rhonchi or wheezes noted. No increased work of breathing, no retractions or nasal flaring. Abdomen/GI: Soft, non-tender, with normal bowel sounds. No distension or tympany. No guarding or rebound. No evidence of tenderness throughout. Back: No spinal tenderness. No costovertebral tenderness. Full range of motion. MS/ Extremity: Pulses equal, no cyanosis. Neurovascular intact. Full, normal range of motion. Neuro: Awake and alert, GCS 15, oriented to person, place, time, and situation. Cranial nerves II-XII grossly intact. Motor strength 5/5 in all extremities. Sensory grossly intact. Cerebellar exam normal. Normal gait. Psych: Awake, alert, with orientation to person, place and time. Behavior, mood, and affect are within normal limits. 07:11 Head/face: Noted is swelling, that is mild, of the forehead. 07:11 Skin: Swelling to left shoulder - multiple small welts to area - appears to be bug bite like. Vital Signs: 05/28 10:37 BP 143 / 83; Pulse 78; Resp 16 S; Temp 98(TE); Pulse Ox 98% on R/A; Height 5 ft. 4 in. ca1 (162.56 cm) (R); Pain 8/10; 14:42 BP 159 / 95; Pulse 74; Resp 18; Pulse Ox 97% on R/A; zb 16:03 BP 171 / 105; Pulse 80; Resp 16; Pulse Ox 95% on R/A; zb MDM: 15:56 Patient medically screened. kdr 05/29 07:18 Data reviewed: vital signs, nurses notes, lab test result(s), radiologic studies. kdr Counseling: I had a detailed discussion with the patient and/or guardian regarding: the historical points, exam findings, and any diagnostic results supporting the discharge/admit diagnosis, lab results, radiology results, the need for outpatient follow up. 05/28 14:06 Order name: Urine Dipstick--Ancillary (enter results) bd 05/28 14:06 Order name: Urine Dipstick-Ancillary EDMS 05/28 13:43 Order name: US Najera Nonvasular Limited; Complete Time: 15:18 kdr Administered Medications: 05/28 13:53 Drug: predniSONE 40 mg Route: PO; zb 14:41 Follow up: Response: No adverse reaction zb 13:54 Drug: Benadryl 50 mg Route: PO; zb 14:41 Follow up: Response: No adverse reaction zb 13:54 Drug: Pepcid 20 mg Route: PO; zb 14:41 Follow up: Response: No adverse reaction zb Disposition: 05/28/20 15:56 Discharged to Home. 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 - Condition is Stable. - Prescriptions for prednisone 10 mg Oral tablet - take 1 tablet by ORAL route 2 times per day Monitor your glucose levels closely while taking the steroids. Adjust your insulin as needed to maintain your normal values and ranges; 10 tablet. Benadryl 25 mg Oral Capsule - take 1 capsule by ORAL route every 6 hours As needed; 30 tablet. Prednisone 20 mg Oral Tablet - take 1 tablet by ORAL route once daily for 5 days; 5 tablet. - Blank Diagnosis Outline, Medication Reconciliation Form, Thank You Letter, Antibiotic Education form. - Follow up: Private Physician; When: 2 - 3 days; Reason: If symptoms return, Further diagnostic work-up, Recheck today's complaints, Continuance of care, Re-evaluation by your physician. - Problem is new. - Symptoms have improved. Signatures: Dispatcher [employer] EDMS Varinder Lane MD MD kdr Acob, Cheryl, RN RN ca1 Brown, Zipporah, RN RN zb Corrections: (The following items were deleted from the chart) 16:33 15:56 05/28/2020 15:56 Discharged to Home. Impression: Forehead swelling: subcutaneous zb discoid mass - probably old. Condition is Stable. Forms are Medication Reconciliation Form, Thank You Letter, Antibiotic Education, Prescription Opioid Use. Follow up: Private Physician; When: 2 - 3 days; Reason: If symptoms return, Further diagnostic work-up, Recheck today's complaints, Continuance of care, Re-evaluation by your physician. Problem is new. Symptoms have improved. kdr
[2020-05-28] MEDS ORDERED: METOPROLOL TAR 25 MG TAB ONE (16:27)
[2020-05-28] MEDS ORDERED: lisinopriL 20 MG TAB ONE (16:27)
[2020-05-28 16:49] VITALS: TEMP 98
[2020-05-28 16:52] VITALS: BP 171/105; O2SAT 95
[2020-05-28 20:13] LABS: Urine Blood NEGATIVE (NEG); Urine Glucose NEGATIVE (NEG); Urine Protein NEGATIVE (NEG); Urine Specific Gravity 1.025 (1.005-1.030); Urine pH 7.5 (5.0-7.0)
== END 2020-05-28 16:33 | disposition home or self-care (01) ==
LOC: ER 10:22
DX: R22.0 Localized swelling, mass and lump, head (principal); E11.9 Type 2 diabetes mellitus without complications; Z79.4 Long term (current) use of insulin; Z86.718 Personal history of other venous thrombosis and embolism; I10 Essential (primary) hypertension; Z86.711 Personal history of pulmonary embolism
CPT/HCPCS: 76882; 81003; 99284; J7512